=== PATIENT | male | born 1930 | race Caucasian/White ===

== ENCOUNTER → 2016-08-27 | Outpatient (CLI) | payer OTHER ==
[~2016-08-27] MED LIST: CHOLCAP5 PO; DOCU-94 PO; ENZA1CAP PO; FRS/40 PO; METO25TA3 PO; POLY335019 PO
--- NOTE | 2016-08-27 08:11 | DIAGNOSTIC IMAGING REPORT ---
CHEST CT WITHOUT CONTRAST CT DOSE: 2556.59 mGy.cm HISTORY: Prostate carcinoma prostate carcinoma TECHNIQUE: Multiaxial CT images of the chest were performed without contrast. COMPARISON: 09/11/2015 FINDINGS: The lungs are clear. The mediastinal vascular structures are within normal limits. No mediastinal or hilar lymphadenopathy. No pleural effusion or pneumothorax. Limited views of the upper abdomen demonstrate a normal liver and spleen. IMPRESSION: No acute process. Electronically signed by: Wes Cadena M.D. 08/27/2016 8:09 AM Dictated Date/Time: 08/27/2016 8:02 AM
--- NOTE | 2016-08-27 10:43 | DIAGNOSTIC IMAGING REPORT ---
ABDOMEN AND PELVIS CT WITH ORAL CONTRAST CT DOSE: HISTORY: Prostate cancer. Follow-up. X TECHNIQUE: Multiaxial CT images of the abdomen and pelvis were performed following the use of oral contrast. COMPARISON STUDY: Abdomen and pelvis CT 09/12/2015. 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 No new metastatic lesions identified. Bilateral gynecomastia. Trace pericardial effusion, unchanged. There is a 2.5 cm diverticulum at the second portion of the duodenum. Subcentimeter right adrenal gland nodules are unchanged. Slight increase in size/number of the left adrenal gland nodules. No retroperitoneal lymphadenopathy. 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 Mild bladder wall thickening is again noted. This is likely chronic. No bowel wall thickening or obstruction. Normal appendix. The unenhanced liver, spleen, and pancreas are unremarkable. No renal stones or hydronephrosis. Left cortical renal scarring. Exophytic 1.6 cm hypodense lesion within the lower pole the left kidney. This contains small areas of peripheral calcification. This is incompletely characterize on this noncontrast study but may represent a cyst. IMPRESSION: 1. No significant change in the osteoblastic metastatic disease. 2. Increase in size/number of the left adrenal gland nodules. 3. Additional findings as described above. Electronically signed by: Enrrique Soto M.D. 08/27/2016 10:42 AM Dictated Date/Time: 08/27/2016 10:31 AM
--- NOTE | 2016-08-27 11:03 | DIAGNOSTIC IMAGING REPORT ---
BONE SCAN WHOLE BODY CLINICAL HISTORY: Prostate carcinoma COMPARISON STUDY: 05/11/2014 FINDINGS: The patient was injected with 25.5 mCi of technetium 99m MDP. Delayed whole body images were acquired. There are foci of increased activity within the shoulders knees and feet, and a distribution most suggestive of degenerative/arthritic change. There are foci of increased activity within the dorsal spine and upper lumbar spine, suspicious for metastatic disease. There is also a focus of increased activity within the left lateral iliac bone, suspicious for a metastatic deposit. There is a focus of increased activity within the left first rib suspicious for a metastatic deposit. Each of these lesions demonstrates decreased uptake when compared the prior study. No new lesions are visualized. The findings are suggestive of improving metastatic disease IMPRESSION: Interval decrease in the degree of uptake within the multiple skeletal lesions. The findings are suggestive of improving metastatic disease Electronically signed by: Ervin Barth M.D. 08/27/2016 11:01 AM Dictated Date/Time: 08/27/2016 10:59 AM
== END | disposition home or self-care (01) ==
LOC: C.CTS 07:00
PROVIDERS: ATTEND Internal Medicine Hematology
DX: C61 Malignant neoplasm of prostate (principal); C78.00 Secondary malignant neoplasm of unspecified lung; C79.51 Secondary malignant neoplasm of bone

== ENCOUNTER → 2017-05-13 | Outpatient (CLI) | payer OTHER ==
[~2017-05-13] MED LIST changes: -DOCU-94 PO
--- NOTE | 2017-05-13 13:56 | DIAGNOSTIC IMAGING REPORT ---
(CHEST) THORAX WITHOUT CT DOSE: 2567.73 mGy.cm CLINICAL HISTORY: 86 years-old Male with LUNG CA,PROSTATE CA. Follow-up study in a patient with lung and prostate cancer. History of multifocal skeletal metastasis. TECHNIQUE: Multiaxial CT images of the chest were performed without contrast. A dose lowering technique was utilized adhering to the principles of ALARA. COMPARISON: CT abdomen and pelvis of same day, chest CT 08/27/2016, bone scan 08/27/2016. FINDINGS: Thyroid is homogeneous. Mildly prominent lymph nodes of the mediastinum are seen occluding a 7 mm precarinal lymph node which is unchanged from comparison with a fatty hilum. Trace pericardial effusion. Coronary arterial disease. Moderate atherosclerosis of the aorta without aneurysm. No pneumothorax or pleural effusion. Calcified granuloma the right upper lobe. There are a few solid noncalcified nodules of the right upper lobe measuring up to 3 mm which appear unchanged from comparison study. 4 mm nodularity involving the minor fissure on image 149 series 4 is also unchanged. Mild tree-in-bud nodularity involving the lateral segment right middle lobe on image 161 series 4 is unchanged and suggests bronchiolitis. Probable small bilateral periventricular lymph nodes which are seen along the fissures bilaterally are also unchanged. These measure up to approximately 3 mm. Minimal subsegmental atelectasis or scarring of the lateral basal left lower lobe. Central airways are patent. Prior cholecystectomy. Oral contrast is noted within the mid and distal portions of the esophagus suggesting reflux. Extensive bilateral gynecomastia appears symmetric. Advanced degenerative changes of the shoulders. Multilevel endplate spurring throughout the spine. No new skeletal blastic lesions identified. IMPRESSION: 1. No acute intrathoracic abnormality identified. 2. No pathologic adenopathy 3. Noncalcified solid pulmonary nodules measuring up to 3 mm within the right upper lobe are unchanged from comparison. 4. Oral contrast extends into the mid and distal portions of the esophagus suggesting reflux. Electronically signed by: Javed Guidry M.D. 05/13/2017 1:54 PM Dictated Date/Time: 05/13/2017 1:47 PM
--- NOTE | 2017-05-13 14:08 | DIAGNOSTIC IMAGING REPORT ---
ABD/PELVIS ORAL CONT ONLY CLINICAL HISTORY: 86 years-old Male presenting with LUNG CA,PROSTATE CA. TECHNIQUE: Multidetector CT of the abdomen and pelvis was performed after the administration of oral contrast only. IV contrast: None. A dose lowering technique was used consistent with the principles of ALARA (as low as reasonably achievable). COMPARISON: 08/27/2016. CT DOSE (mGy.cm): The estimated cumulative dose is 2567.[address] chest. FINDINGS: Credit Compliance Officer topogram: Unremarkable. Lung bases: Gynecomastia. Minimal nodular opacities in the lateral portion of the right middle lobe. These are unchanged from prior. Coronary artery and aortic valve calcification. Normal heart size. Trace pericardial effusion. No pleural effusion. 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 Normal liver density. Biliary: No gross biliary ductal dilatation allowing for noncontrast technique. Gallbladder surgically absent. Pancreas: Severe parenchymal atrophy. Spleen: Normal noncontrast appearance. Splenule noted. Adrenal glands: Bilateral adrenal gland nodules, left greater than right. The left adrenal gland continues to increase in overall size. Interval development of an exophytic nodule along the inferior aspect of the medial limb (series 7 image 146), which now measures 1.8 cm, previously 0.8 cm. Kidneys and ureters: Focal cortical thinning in the left kidney may suggest scarring. No nephrolithiasis. No hydronephrosis. Normal ureters. Bladder: Incompletely evaluated secondary to underdistention. Pelvic organs: Postsurgical changes of prostatectomy suspected. Bowel: Mild stool burden throughout normal caliber colon. Limited diverticulosis of the sigmoid colon. The appendix is normal. No bowel obstruction. Oral contrast noted in the distal esophagus consistent with gastroesophageal reflux. A duodenal diverticulum containing feces is noted. No surrounding inflammatory change. Peritoneal cavity: No free fluid or intraperitoneal gas. Lymph nodes: No gross lymphadenopathy allowing for noncontrast technique. 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 Aneurysmal dilatation measures 3 x 2 cm (series 7 image 337). Previously this aneurysm measured 3 x 2 cm when remeasured at a comparable level. Atherosclerosis. Mild irregularity of the abdominal aorta without focal aneurysmal dilatation. Abdominal wall: Normal. Musculoskeletal: Multifocal sclerotic lesions consistent with known blastic disease. This is most pronounced in the spine and sacrum. Additional sites of disease suspected in the ribs. IMPRESSION: 1. Overall similar appearance of the multifocal osteoblastic metastatic disease. 2. Continued interval increase in size of bilateral adrenal nodules concerning for metastatic disease. 3. No lymphadenopathy or evidence of new sites of disease. 4. Right internal iliac aneurysm. 5. Gynecomastia. Electronically signed by: Ramiro Worthy M.D. 05/13/2017 2:06 PM Dictated Date/Time: 05/13/2017 1:57 PM
--- NOTE | 2017-05-13 14:44 | DIAGNOSTIC IMAGING REPORT ---
NUCLEAR MEDICINE WHOLE-BODY BONE SCAN CLINICAL HISTORY: LUNG CA,PROSTATE CA COMPARISON STUDY: 08/27/2016 FINDINGS: Patient was injected with 26.2 mCi of technetium 99m MDP. Three-hour delayed whole body images were acquired. Foci of increased activity within the medial joint compartments of the knees, and both feet are likely degenerative/arthritic. There is a focus of increased activity within the right shoulder, likely arthritic. There is interval increase in a focus of intense increased activity at the level of the left first rib. There are persistent foci of increased activity within the mid thoracic spine and T12 level. There is a stable subtle focus of increased activity involving the left anterior iliac bone. IMPRESSION: 1. Stable foci of abnormal increased activity within the mid thoracic spine, T12 level, and left anterior iliac bone 2. Interval increase in the abnormal activity at the level of the left first rib. Electronically signed by: Ervin Barth M.D. 05/13/2017 2:43 PM Dictated Date/Time: 05/13/2017 2:36 PM
== END | disposition home or self-care (01) ==
LOC: C.NUCL 10:49
PROVIDERS: ATTEND Internal Medicine Hematology
DX: C61 Malignant neoplasm of prostate (principal); C78.00 Secondary malignant neoplasm of unspecified lung; C79.51 Secondary malignant neoplasm of bone

== ENCOUNTER 2018-07-27 16:41 | Inpatient (IN) ==
--- NOTE | 2018-07-27 17:09 | Emergency Department Note ---
Entered by Pancho Rodrigez acting as a scribe for Albert Briones DO History of Present Illness General Chief complaint: Confusion Stated complaint: CONFUSSION, PASSING OUT Source: patient and family () History of Present Illness Onset (ago): hour(s) (about 6.5) Location: mouth (speech) Pain Consistency: + other (currently improved) Quality: + other (stroke-like symptoms) Associated symptoms: + other (speech difficulties, temporary unresponsiveness, dragging one leg while walking); no chest pain and no shortness of breath The patient is an 87 year old male who presents to the Emergency Room with stroke-like symptoms beginning at 10:30 this morning, about 6.5 hours ago. The reports that the patient started having difficulties speaking at that time and was unable to produce the correct words, stating that he was not making sense. She notes that these symptoms worsened, and although he was walking without difficulty at first, he started to shuffle and drag his right leg. She states that he started to fall down, but she supported him as he fell so he did not injure himself. She reports that the patient was then unresponsive and staring blankly for a period of about 40 seconds. She states that he currently appears greatly improved, although he still appears a little more confused than his baseline. She notes that she gave the patient one adult aspirin at 13:30. The patient denies chest pain, shortness of breath, history of stroke, history of atrial fibrillation, or use of blood thinners. The notes that he regularly takes metoprolol. The patient reports a fall last week. Home Medications Home Medications Medication Instructions Recorded Confirmed Type Dandelion Root 250 mg PO 2XWK 07/27/18 07/27/18 History cholecalciferol (vitamin D3) 5,000 unit PO DAILY 07/27/18 07/27/18 History [Vitamin D3] enzalutamide [Xtandi] 160 mg PO DAILY 07/27/18 07/27/18 History furosemide [Lasix] 40 mg PO UD 07/27/18 07/27/18 History furosemide [Lasix] 60 mg PO UD 07/27/18 07/27/18 History magnesium oxide 400 mg PO DAILY 07/27/18 07/27/18 History metoprolol succinate 25 mg PO DAILY 07/27/18 07/27/18 History polyethylene glycol 3350 [Miralax] 17 g PO DAILY PRN 07/27/18 07/27/18 History potassium chloride 10 meq PO DAILY 07/27/18 07/27/18 History spironolactone 12.5 mg PO DAILY 07/27/18 07/27/18 History tramadol 50 mg PO Q8 PRN 07/27/18 07/27/18 History Allergies Allergy/AdvReac Type Severity Reaction Status Date / Time No Known Allergies Allergy Unknown Verified 07/27/18 18:27 Past Med/Surg History Medical History Chronic left ventricular systolic heart failure (Chronic) LVEF 35-40% per echo 09/11/15 CKD (chronic kidney disease), stage III (Chronic) Pulmonary nodules (Chronic) metastatic prostate Ca Bone metastasis (Chronic) Prostate CA (Chronic ~2000) Mets to bone and lung. "Adenocarcinoma the prostate Biopsy stage T2c Trev grade 4+4 and 4+ 05/29/2000 Status post TURP October 2007 Trev score 4+4 in 60% of the specimen Status post orchiectomy 2008 due to bone metastasis Status post radiation therapy to the sacrum 05/14/2011 received 3900 cGy Status post completion of radiation therapy to the thoracic/lumbar spine completed 06/17/2014 received 3750 cGy Ongoing treatment with Xtandi" SSS (sick sinus syndrome) (Chronic) History of nephrolithiasis (Chronic) Surgical History Status post cardiac pacemaker procedure (Chronic) Status post cholecystectomy (Chronic) Status post hernia repair (Chronic) Status post orchiectomy (Chronic) Family History Brother Prostate CA Uncle Prostate CA Brother Diabetes mellitus Mother Coronary artery disease Other Family history non-contributory Social History Communication Ability: Impaired Beliefs That Will Affect Care: None Current Living Situation: Spouse current occupational status: retired current occupation: retired [employer] Other Information That Helps Us Care for You: No Feels Safe at Home: Yes Safety Concerns: Feels Safe At This Time Smoking Status: Former smoker Hx Alcohol Use: No Hx Substance Use: No Review of Systems See HPI for pertinent positives & negatives. and A total of 10 systems reviewed and were otherwise negative Physical Exam Vital Signs Vital Signs - 24 hr 07/27/18 19:02 07/27/18 19:51 07/27/18 20:26 Temperature 37.1 C Temperature Source Oral Pulse Rate - Lying Pulse Rate - Sitting Pulse Rate - Standing Pulse Rate [Apical] 75 67 76 Respiratory Rate 20 20 20 Respiratory Effort / Characteristics Non-Labored Non-Labored Spontaneous Respiratory Depth Normal Normal Respiratory Pattern Regular Blood Pressure - Lying Blood Pressure - Sitting Blood Pressure- Standing Blood Pressure [Right Arm] 145/86 H 118/73 138/84 Blood Pressure Mean [Right Arm] 105 88 102 Blood Pressure Position [Right Arm] Lying Pulse Oximetry 99 97 96 Oxygen Delivery Method Room Air Room Air Room Air 07/27/18 20:42 07/27/18 23:09 07/28/18 03:17 Temperature 36.5 C 36.7 C 36.9 C Temperature Source Oral Oral Oral Pulse Rate - Lying Pulse Rate - Sitting Pulse Rate - Standing Pulse Rate [Apical] 78 63 66 Respiratory Rate 18 20 20 Respiratory Effort / Characteristics Non-Labored Spontaneous SOB on Exertion Respiratory Depth Normal Respiratory Pattern Regular Blood Pressure - Lying Blood Pressure - Sitting Blood Pressure- Standing Blood Pressure [Right Arm] 135/78 124/50 L 117/64 Blood Pressure Mean [Right Arm] 97 74 81 Blood Pressure Position [Right Arm] Lying Lying Lying Pulse Oximetry 97 94 95 Oxygen Delivery Method Room Air Room Air Room Air 07/28/18 06:30 07/28/18 08:00 07/28/18 11:34 Temperature 37.1 C 37.2 C Temperature Source Oral Oral Pulse Rate - Lying 62 Pulse Rate - Sitting 69 Pulse Rate - Standing 83 Pulse Rate [Apical] 61 65 Respiratory Rate 18 18 Respiratory Effort / Characteristics Respiratory Depth Respiratory Pattern Blood Pressure - Lying 115/60 Blood Pressure - Sitting 118/66 Blood Pressure- Standing 128/57 L Blood Pressure [Right Arm] 112/60 126/72 Blood Pressure Mean [Right Arm] 77 90 Blood Pressure Position [Right Arm] Lying Lying Pulse Oximetry 94 94 Oxygen Delivery Method Room Air Room Air 07/28/18 15:11 Temperature 36.6 C Temperature Source Oral Pulse Rate - Lying Pulse Rate - Sitting Pulse Rate - Standing Pulse Rate [Apical] 65 Respiratory Rate 18 Respiratory Effort / Characteristics Respiratory Depth Respiratory Pattern Blood Pressure - Lying Blood Pressure - Sitting Blood Pressure- Standing Blood Pressure [Right Arm] 132/77 Blood Pressure Mean [Right Arm] 95 Blood Pressure Position [Right Arm] Lying Pulse Oximetry 90 Oxygen Delivery Method Room Air GENERAL: Patient is awake alert. He is somewhat anxious appearing but appears to be comfortable. EYES: The conjunctivae are clear. The pupils are round and reactive. EARS, NOSE, MOUTH AND THROAT: The nose is without any evidence of any deformity. Mucous membranes are moist tongue is midline NECK: The neck is nontender and supple. There were no bruits noted to auscultation. RESPIRATORY: Normal respiratory effort is noted there is no evidence of wheezing rhonchi or rales CARDIOVASCULAR: Regular rate and rhythm noted there no murmurs rubs or gallops normal S1 normal S2 GASTROINTESTINAL: The abdomen is soft. Bowel sounds are present in all quadrants. Abdomen is nontender MUSCULOSKELETAL/EXTREMITIES: There is no evidence of gross deformity full range of motion is noted in the hips and shoulders SKIN: There is no obvious evidence of any rash. Pedal edema was noted bilaterally. NEUROLOGIC: Patient is alert and oriented to person place and time. Speech was pressured but understandable. Strength was symmetric in both lower extremity's. There was no facial droop noted. Course 1654: Past medical records reviewed. The patient was evaluated in room B1, and a complete history and physical examination were performed. 1723: The patients head CT was negative. 1827: I discussed the patients case with Dr. Cabrera [facility]. 1847: I consulted Yany Dow PA-C: [place] Hospitalist with Dr. Sutton. The patient will be evaluated for hospitalization. Consultations Consultation #1: I discussed the patients case with Dr. Cabrera [facility]. Time: 18:27 Consultation #2: I consulted Yany Dow PA-C: [facility] Sutton. The patient will be evaluated for hospitalization. Time: 18:47 Administered Medications Aspirin (Ecotrin Ectab) 81 mg PO [facility] Stop: 08/27/18 08:59 Last Admin: 07/28/18 08:20 Dose: 81 mg Documented by: [id number] Atorvastatin [facility] Stop: 08/27/18 08:59 Last Admin: 07/28/18 08:20 Dose: 40 mg Documented by: [id number] Clopidogrel Bisulfate (Plavix) 75 mg PO QAM [facility] Stop: 08/27/18 08:59 Last Admin: 07/28/18 08:20 Dose: 75 mg Documented by: [id number] Furosemide (Lasix) 40 mg PO BID17 [facility] Stop: 08/27/18 16:59 Last Admin: 07/28/18 17:10 Dose: Not Given Documented by: [id number] Sodium Chloride (Nss 1000ml) 750 mls @ 60 mls/hr IV .[id number] [facility] Stop: 07/29/18 00:14 Last Admin: 07/28/18 12:45 Dose: 60 mls/hr Documented by: [id number] Heparin Sodium/Dextrose (Heparin Sodium/Dextrose) 25,000 units in 500 mls @ 32 mls/hr IV .[id number] [facility]; Protocol Stop: 08/27/18 13:59 Last Admin: 07/28/18 14:09 Dose: 1,600 units/hr, 32 mls/hr Documented by: [id number] Cosigned by: [id number] Ioversol (Optiray 320 125ml) 119 ml IV ONCE PRN PRN Reason: Interaction Checking Stop: 07/31/18 17:18 Last Admin: 07/27/18 17:19 Dose: 119 ml Documented by: [id number] Magnesium Oxide (Mag-Ox) 400 mg PO DAILY [facility] Stop: 08/27/18 08:59 Last Admin: 07/28/18 08:20 Dose: 400 mg Documented by: [id number] Metoprolol Succinate (Toprol Xl) 25 mg PO DAILY [facility] Stop: 08/27/18 08:59 Last Admin: 07/28/18 08:20 Dose: 25 mg Documented by: [id number] Polyethylene Glycol (Miralax Powder Packet) 17 gm PO DAILY PRN PRN Reason: Constipation Stop: 08/26/18 20:41 Last Admin: 07/28/18 08:22 Dose: 17 gm Documented by: [id number] Potassium Chloride (Klor-Con M10) 10 meq PO DAILY [facility] Stop: 08/27/18 08:59 Last Admin: 07/28/18 08:21 Dose: 10 meq Documented by: [id number] Spironolactone (Aldactone) 12.5 mg PO DAILY [facility] Stop: 08/27/18 08:59 Last Admin: 07/28/18 08:21 Dose: 12.5 mg Documented by: [id number] Discontinued Medications Clopidogrel Bisulfate (Plavix) 300 mg PO NOW STA Stop: 07/27/18 18:34 Last Admin: 07/27/18 18:40 Dose: 300 mg Documented by: [id number] Enoxaparin Sodium (Lovenox) 40 mg SQ QAM [facility] Stop: 08/27/18 08:59 Last Admin: 07/28/18 08:27 Dose: 40 mg Documented by: [id number] Furosemide (Lasix) 60 mg PO SuWeFr@0900,2100 [facility] Stop: 08/26/18 20:59 Last Admin: 07/27/18 21:57 Dose: 60 mg Documented by: [id number] Furosemide (Lasix) 40 mg PO MoTuThSa@09,15 [facility] Stop: 08/27/18 08:59 Last Admin: 07/28/18 08:21 Dose: 40 mg Documented by: [id number] Heparin Sodium/Dextrose (Heparin Sodium/Dextrose) Confirm Administered Dose 25,000 units IV .STK-MED ONE Stop: 07/28/18 13:39 Last Admin: 07/28/18 13:54 Dose: Not Given Documented by: [id number] Sodium Chloride (Nss 1000ml) 500 mls @ 999 mls/hr IV .Q31M ONE Stop: 07/27/18 19:03 Last Infusion: 07/27/18 19:14 Dose: 0 mls/hr Documented by: [id number] Admin: 07/27/18 18:40 Dose: 999 mls/hr Documented by: [id number] Sodium Chloride (Nss 250ml) 250 mls @ 999 mls/hr IV .Q16M ONE Stop: 07/28/18 11:42 Last Infusion: 07/28/18 12:47 Dose: 0 mls/hr Documented by: [id number] Admin: 07/28/18 12:24 Dose: 999 mls/hr Documented by: [id number] Medical Decision Making Differential Diagnosis Differential Diagnosis includes but is not limited to ischemic stroke, hemorrhagic stroke, Davidson's palsy, mass, neoplasm, migraine headache, seizure, subarachnoid hemorrhage, TIA, and transient global amnesia. Medical Records Attestation: I reviewed the patient's medical records. Home Medications Current Medication List: was personally reviewed by me Laboratory Data Attestation: I reviewed the patient's lab results. Result diagrams: 07/28/18 06:11 07/28/18 06:11 Lab Results 07/27/18 07/27/18 07/27/18 Range/Units 17:08 17:08 17:08 WBC 7.24 (4.8-10.8) K/uL RBC 4.10 L (4.7-6.1) M/uL Hgb 12.7 L (14.0-18.0) g/dL POC Hgb (14.0-18.0) g/dl Hct 37.9 L (42-52) % POC Hct (42-52) % MCV 92.4 (80-100) fL MCH 31.0 (25-34) pg MCHC 33.5 (32-36) g/dL RDW Std Deviation 49.3 H (36.4-46.3) fL RDW Coeff of Carlos A 14.6 H (11.5-14.5) % Plt Count 185 (130-400) K/uL MPV 9.5 (7.4-10.4) fL Immature Gran % (Auto) 0.1 % Neut % (Auto) 71.3 % Lymph % (Auto) 16.9 % [place] % (Auto) 10.4 % Eos % (Auto) 1.0 % Baso % (Auto) 0.3 % Immature Gran # (Auto) 0.01 (0.00-0.02) K/uL Neut # (Auto) 5.17 (1.4-6.5) K/uL Lymph # (Auto) 1.22 (1.2-3.4) K/uL [place] # (Auto) 0.75 H (0.11-0.59) K/uL Eos # (Auto) 0.07 (0-0.5) K/uL Baso # (Auto) 0.02 (0-0.2) K/uL PT Cancelled INR Cancelled APTT Cancelled PTT Ratio Cancelled POC Sodium (135-144) mEq/L Sodium 136 (136-145) mmol/L POC Potassium (3.3-5.0) mEq/L Potassium 4.1 (3.5-5.1) mmol/L POC Chloride (101-112) mEq/L Chloride 100 (98-107) mmol/L Carbon Dioxide 25 (21-32) mmol/L POC Total CO2 (24-31) mEq/l Anion Gap 11.0 (3-11) POC Anion Gap (16-25) mmol/L POC BUN (7-18) mg/dl BUN 18 (7-18) mg/dl Creatinine 1.36 (0.6-1.4) mg/dl POC Creatinine (0.6-1.3) mg/dl Est Cr Clr Drug Dosing 48.9 ml/min Est GFR ( Amer) 53.8 Est GFR (Non-Af Amer) 46.5 BUN/Creatinine Ratio 13.1 (10-20) Glucose 119 H (70-99) mg/dl POC Glucose (70-99) POC Glucose (other) (70-99) mg/dl Estimat Average Glucose mg/dl Hemoglobin A1c (4.5-5.6) % Calcium 9.4 (8.5-10.1) mg/dl POC Ioniz Calcium Gypsy (1.12-1.32) mmol/l Magnesium 2.7 H (1.8-2.4) mg/dl Total Bilirubin 0.8 (0.2-1) mg/dl AST 23 (15-37) U/L ALT 14 (12-78) U/L Alkaline Phosphatase 88 (45-117) U/L Troponin I < 0.015 (0-0.045) ng/ml Total Protein 7.5 (6.4-8.2) gm/dl Albumin 3.4 (3.4-5.0) gm/dl Globulin 4.1 H (2.5-4.0) gm/dl Albumin/Globulin Ratio 0.8 L (0.9-2) Triglycerides (0-150) mg/dl Cholesterol (0-200) mg/dl LDL Cholesterol, Calc mg/dl VLDL Cholesterol, Calc mg/dl HDL Cholesterol mg/dl Cholesterol/HDL Ratio Blood Type Antibody Screen 07/27/18 07/27/18 07/27/18 Range/Units 17:08 17:11 17:25 WBC (4.8-10.8) K/uL RBC (4.7-6.1) M/uL Hgb (14.0-18.0) g/dL POC Hgb 12.6 L (14.0-18.0) g/dl Hct (42-52) % POC Hct 37 L (42-52) % MCV (80-100) fL MCH (25-34) pg MCHC (32-36) g/dL RDW Std Deviation (36.4-46.3) fL RDW Coeff of Carlos A (11.5-14.5) % Plt Count (130-400) K/uL MPV (7.4-10.4) fL Immature Gran % (Auto) % Neut % (Auto) % Lymph % (Auto) % [place] % (Auto) % Eos % (Auto) % Baso % (Auto) % Immature Gran # (Auto) (0.00-0.02) K/uL Neut # (Auto) (1.4-6.5) K/uL Lymph # (Auto) (1.2-3.4) K/uL [place] # (Auto) (0.11-0.59) K/uL Eos # (Auto) (0-0.5) K/uL Baso # (Auto) (0-0.2) K/uL PT INR APTT PTT Ratio POC Sodium 137 (135-144) mEq/L Sodium (136-145) mmol/L POC Potassium 4.1 (3.3-5.0) mEq/L Potassium (3.5-5.1) mmol/L POC Chloride 99 L (101-112) mEq/L Chloride (98-107) mmol/L Carbon Dioxide (21-32) mmol/L POC Total CO2 27 (24-31) mEq/l Anion Gap (3-11) POC Anion Gap 16.0 (16-25) mmol/L POC BUN 25 H (7-18) mg/dl BUN (7-18) mg/dl Creatinine (0.6-1.4) mg/dl POC Creatinine 1.3 (0.6-1.3) mg/dl Est Cr Clr Drug Dosing ml/min Est GFR ( Amer) Est GFR (Non-Af Amer) BUN/Creatinine Ratio (10-20) Glucose (70-99) mg/dl POC Glucose 118 H (70-99) POC Glucose (other) 120 H (70-99) mg/dl Estimat Average Glucose mg/dl Hemoglobin A1c (4.5-5.6) % Calcium (8.5-10.1) mg/dl POC Ioniz Calcium Gypsy 1.21 (1.12-1.32) mmol/l Magnesium (1.8-2.4) mg/dl Total Bilirubin (0.2-1) mg/dl AST (15-37) U/L ALT (12-78) U/L Alkaline Phosphatase (45-117) U/L Troponin I (0-0.045) ng/ml Total Protein (6.4-8.2) gm/dl Albumin (3.4-5.0) gm/dl Globulin (2.5-4.0) gm/dl Albumin/Globulin Ratio (0.9-2) Triglycerides (0-150) mg/dl Cholesterol (0-200) mg/dl LDL Cholesterol, Calc mg/dl VLDL Cholesterol, Calc mg/dl HDL Cholesterol mg/dl Cholesterol/HDL Ratio Blood Type A Positive Antibody Screen NEGATIVE 07/27/18 07/28/18 07/28/18 Range/Units 18:02 06:11 06:11 WBC 5.17 (4.8-10.8) K/uL RBC 3.96 L (4.7-6.1) M/uL Hgb 12.2 L (14.0-18.0) g/dL POC Hgb (14.0-18.0) g/dl Hct 36.5 L (42-52) % POC Hct (42-52) % MCV 92.2 (80-100) fL MCH 30.8 (25-34) pg MCHC 33.4 (32-36) g/dL RDW Std Deviation 49.2 H (36.4-46.3) fL RDW Coeff of Carlos A 14.5 (11.5-14.5) % Plt Count 157 (130-400) K/uL MPV 9.0 (7.4-10.4) fL Immature Gran % (Auto) 0.2 % Neut % (Auto) 61.5 % Lymph % (Auto) 23.0 % [place] % (Auto) 13.9 % Eos % (Auto) 1.2 % Baso % (Auto) 0.2 % Immature Gran # (Auto) 0.01 (0.00-0.02) K/uL Neut # (Auto) 3.18 (1.4-6.5) K/uL Lymph # (Auto) 1.19 L (1.2-3.4) K/uL [place] # (Auto) 0.72 H (0.11-0.59) K/uL Eos # (Auto) 0.06 (0-0.5) K/uL Baso # (Auto) 0.01 (0-0.2) K/uL PT 10.3 INR 1.0 APTT 24.0 PTT Ratio 0.9 POC Sodium (135-144) mEq/L Sodium 137 (136-145) mmol/L POC Potassium (3.3-5.0) mEq/L Potassium 3.6 (3.5-5.1) mmol/L POC Chloride (101-112) mEq/L Chloride 103 (98-107) mmol/L Carbon Dioxide 25 (21-32) mmol/L POC Total CO2 (24-31) mEq/l Anion Gap 10.0 (3-11) POC Anion Gap (16-25) mmol/L POC BUN (7-18) mg/dl BUN 14 (7-18) mg/dl Creatinine 1.19 (0.6-1.4) mg/dl POC Creatinine (0.6-1.3) mg/dl Est Cr Clr Drug Dosing 54.8 ml/min Est GFR ( Amer) 63.3 Est GFR (Non-Af Amer) 54.6 BUN/Creatinine Ratio 11.9 (10-20) Glucose 122 H (70-99) mg/dl POC Glucose (70-99) POC Glucose (other) (70-99) mg/dl Estimat Average Glucose mg/dl Hemoglobin A1c (4.5-5.6) % Calcium 8.9 (8.5-10.1) mg/dl POC Ioniz Calcium Gypsy (1.12-1.32) mmol/l Magnesium (1.8-2.4) mg/dl Total Bilirubin (0.2-1) mg/dl AST (15-37) U/L ALT (12-78) U/L Alkaline Phosphatase (45-117) U/L Troponin I (0-0.045) ng/ml Total Protein (6.4-8.2) gm/dl Albumin (3.4-5.0) gm/dl Globulin (2.5-4.0) gm/dl Albumin/Globulin Ratio (0.9-2) Triglycerides 182 H (0-150) mg/dl Cholesterol 225 H (0-200) mg/dl LDL Cholesterol, Calc 144 mg/dl VLDL Cholesterol, Calc 36 mg/dl HDL Cholesterol 45 mg/dl Cholesterol/HDL Ratio 5 Blood Type Antibody Screen 07/28/18 Range/Units 06:11 WBC (4.8-10.8) K/uL RBC (4.7-6.1) M/uL Hgb (14.0-18.0) g/dL POC Hgb (14.0-18.0) g/dl Hct (42-52) % POC Hct (42-52) % MCV (80-100) fL MCH (25-34) pg MCHC (32-36) g/dL RDW Std Deviation (36.4-46.3) fL RDW Coeff of Carlos A (11.5-14.5) % Plt Count (130-400) K/uL MPV (7.4-10.4) fL Immature Gran % (Auto) % Neut % (Auto) % Lymph % (Auto) % [place] % (Auto) % Eos % (Auto) % Baso % (Auto) % Immature Gran # (Auto) (0.00-0.02) K/uL Neut # (Auto) (1.4-6.5) K/uL Lymph # (Auto) (1.2-3.4) K/uL [place] # (Auto) (0.11-0.59) K/uL Eos # (Auto) (0-0.5) K/uL Baso # (Auto) (0-0.2) K/uL PT INR APTT PTT Ratio POC Sodium (135-144) mEq/L Sodium (136-145) mmol/L POC Potassium (3.3-5.0) mEq/L Potassium (3.5-5.1) mmol/L POC Chloride (101-112) mEq/L Chloride (98-107) mmol/L Carbon Dioxide (21-32) mmol/L POC Total CO2 (24-31) mEq/l Anion Gap (3-11) POC Anion Gap (16-25) mmol/L POC BUN (7-18) mg/dl BUN (7-18) mg/dl Creatinine (0.6-1.4) mg/dl POC Creatinine (0.6-1.3) mg/dl Est Cr Clr Drug Dosing ml/min Est GFR ( Amer) Est GFR (Non-Af Amer) BUN/Creatinine Ratio (10-20) Glucose (70-99) mg/dl POC Glucose (70-99) POC Glucose (other) (70-99) mg/dl Estimat Average Glucose 154 mg/dl Hemoglobin A1c 7.0 H (4.5-5.6) % Calcium (8.5-10.1) mg/dl POC Ioniz Calcium Gypsy (1.12-1.32) mmol/l Magnesium (1.8-2.4) mg/dl Total Bilirubin (0.2-1) mg/dl AST (15-37) U/L ALT (12-78) U/L Alkaline Phosphatase (45-117) U/L Troponin I (0-0.045) ng/ml Total Protein (6.4-8.2) gm/dl Albumin (3.4-5.0) gm/dl Globulin (2.5-4.0) gm/dl Albumin/Globulin Ratio (0.9-2) Triglycerides (0-150) mg/dl Cholesterol (0-200) mg/dl LDL Cholesterol, Calc mg/dl VLDL Cholesterol, Calc mg/dl HDL Cholesterol mg/dl Cholesterol/HDL Ratio Blood Type Antibody Screen Imaging Data Radiologist's Impression: Radiology results as stated below per my review and the radiologist's interpretation: XR chest 1V portable HISTORY: 87 years-old Male weakness acute weakness COMPARISON: Chest radiograph 10/24/2017 TECHNIQUE: Portable AP view of the chest FINDINGS: Cardiac silhouette is mildly enlarged, unchanged. Calcification the thoracic aorta. Stable left subclavian dual lead pacer. Mild chronic blunting about the left costophrenic angle. There is no pneumothorax, pleural effusion, focal airspace consolidation or overt pulmonary edema. Degenerative changes of the shoulders and spine. IMPRESSION: No acute process. The above report was generated using voice recognition software. It may contain grammatical, syntax or spelling errors. Electronically signed by: Javed Guidry M.D. 07/27/2018 6:[address] head/brain wo con CLINICAL HISTORY: 87 years-old Male with Stroke evaluation . Acute strokelike symptoms TECHNIQUE: Multiple axial CT images of the head were obtained without contrast. A dose lowering technique was utilized adhering to the principles of ALARA. COMPARISON: CTA head and neck of same day. FINDINGS: No acute intracranial hemorrhage, midline shift, intracranial mass, hydrocephalus, territorial ischemia or abnormal extra-axial collection. 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 Cerebral vascular calcifications are noted. The calvarium is intact. The paranasal sinuses, mastoid air cells, and middle ear cavities are clear. IMPRESSION: No acute intracranial abnormality. The above report was generated using voice recognition software. It may contain grammatical, syntax or spelling errors. Electronically signed by: Javed Guidry M.D. 07/27/2018 5:[address] angio neck with con, CT angio head w con CLINICAL HISTORY: 87 years-old Male with weak. Acute weakness COMPARISON STUDY: CT head of same day TECHNIQUE: Following the IV administration of 119 ml of Optiray 320, CT angiogram of the head and neck was performed from the aortic arch to the skull base. Images are reviewed in the axial, sagittal, and coronal planes. 3-D MIPS images are created and assessed. IV contrast was administered without complication. All measurements were calculated based on NASCET criteria. A dose lowering technique was utilized adhering to the principles of ALARA. CT DOSE: 1309.97 mGy.cm FINDINGS: Extensive mixed plaque formation about the thoracic aortic arch. Patency about the imaged bilateral subclavian arteries. Bilateral common carotid arteries are patent with moderate atheromatous plaque formation. Extensive mixed plaque formation about the bilateral carotid bulbs. This results in less than 50% luminal narrowing bilaterally. Tortuosity about the distal cervical segments of the bilateral internal carotid arteries without high-grade stenosis. Focal area of short segment dissection is noted about the petrous segment right ICA (image 331 series 4). This results in less than 50% luminal narrowing mild calcified plaque formation about the bilateral cavernous, clinoid and supraclinoid seg ments. Focal high-grade stenosis about the proximal portion of the left M1 segment on image 414 series 4 with high-grade stenosis at the origin of the left A1 segment on this same image. Additionally, there is high-grade luminal narrowing of the distal left M1 segment just proximal to the trifurcation. There is mild luminal narrowing noted about the midportion of the right M1 segment. The right A1 segment is widely patent. Vertebral arteries are codominant. Mild tortuosity about the vertebral arteries. Calcified plaque at the origin of the right vertebral artery results in less than 50% luminal narrowing. Multifocal mild luminal narrowing about the V4 segments of the bilateral vertebral arteries, likely secondary to underlying atheromatous plaque. Basilar artery is patent. Bilateral posterior cerebral arteries are widely patent. Cerebral venous sinuses appear patent. No pneumothorax. Calcified granuloma of the right upper lobe. There are a few indeterminate scattered solid nodules noted about the lung apices measuring up to 4 mm. Soft tissues appear unremarkable. No acute abnormality of the imaged intracranial structures. Multilevel degenerative changes of the spine. IMPRESSION: 1. 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 There is less than 50% luminal narrowing about the bilateral proximal internal carotid arteries. 2. Focal high-grade stenosis at the origin of the left M1 and A1 segments with additional focal area of high-grade stenosis about the distal left M1 segment just proximal to the trifurcation, likely secondary to underlying atheromatous plaque. 3. 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 4. Additional findings as above. The above report was generated using voice recognition software. It may contain grammatical, syntax or spelling errors. Electronically signed by: Javed Guidry M.D. 07/27/2018 5:[address] angio neck with con, CT angio head w con CLINICAL HISTORY: 87 years-old Male with weak. Acute weakness COMPARISON STUDY: CT head of same day TECHNIQUE: Following the IV administration of 119 ml of Optiray 320, CT angiogram of the head and neck was performed from the aortic arch to the skull base. Images are reviewed in the axial, sagittal, and coronal planes. 3-D MIPS images are created and assessed. IV contrast was administered without complication. All measurements were calculated based on NASCET criteria. A dose lowering technique was utilized adhering to the principles of ALARA. CT DOSE: 1309.97 mGy.cm FINDINGS: Extensive mixed plaque formation about the thoracic aortic arch. Patency about the imaged bilateral subclavian arteries. Bilateral common carotid arteries are patent with moderate atheromatous plaque formation. Extensive mixed plaque formation about the bilateral carotid bulbs. This results in less than 50% lum inal narrowing bilaterally. Tortuosity about the distal cervical segments of the bilateral internal carotid arteries without high-grade stenosis. Focal area of short segment dissection is noted about the petrous segment right ICA (image 331 series 4). This results in less than 50% luminal narrowing mild calcified plaque formation about the bilateral cavernous, clinoid and supraclinoid segments. Focal high-grade stenosis about the proximal portion of the left M1 segment on image 414 series 4 with high-grade stenosis at the origin of the left A1 segment on this same image. Additionally, there is high-grade luminal narrowing of the distal left M1 segment just proximal to the trifurcation. There is mild luminal narrowing noted about the midportion of the right M1 segment. The right A1 segment is widely patent. Vertebral arteries are codominant. Mild tortuosity about the vertebral arteries. Calcified plaque at the origin of the right vertebral artery results in less than 50% luminal narrowing. Multifocal mild luminal narrowing about the V4 segments of the bilateral vertebral arteries, likely secondary to underlying atheromatous plaque. Basilar artery is patent. Bilateral posterior cerebral arteries are widely patent. Cerebral venous sinuses appear patent. No pneumothorax. Calcified granuloma of the right upper lobe. There are a few indeterminate scattered solid nodules noted about the lung apices measuring up to 4 mm. Soft tissues appear unremarkable. No acute abnormality of the imaged intracranial structures. Multilevel degenerative changes of the spine. IMPRESSION: 1. 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 There is less than 50% luminal narrowing about the bilateral proximal internal carotid arteries. 2. Focal high-grade stenosis at the origin of the left M1 and A1 segments with additional focal area of high-grade stenosis about the distal left M1 segment just proximal to the trifurcation, likely secondary to underlying atheromatous plaque. 3. 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 4. Additional findings as above. The above report was generated using voice recognition software. It may contain grammatical, syntax or spelling errors. Electronically signed by: Javed Guidry M.D. 07/27/2018 5:58 PM ECG Data Attestation: I personally reviewed and interpreted this ECG as follows: Indication: other (stroke-like symptoms) Rate (beats per minute): 66 Rhythm: other (dual chamber pacemaker) Findings: + other (no washoe beats) and + LBBB Comparison ECG Date: from (10/23/17) Change: the following changes noted (pacer is new) Blood Pressure Blood Pressure Findings: Elevated blood pressure Blood Pressure Disposition: further management by hospitalist LYSSA Ruiz The patient is an 87-year-old male who presented to the emergency department for an evaluation of neurologic symptoms. The patient started having symptoms at approximately 1030 on the morning of presentation. The patient was having episodes of aphasia but also started having problems with unilateral leg weakness. The patient presents to the emergency department this time with very mild symptoms. The patient did have one episode of aphasia while he was in the emergency department. He was made a stroke alert upon arrival. I discussed the patient's laboratory and radiographic studies with him. I discussed his case with the neuro endovascular specialist at [facility]. At this time they do not feel that his condition would be amenable to endovascular treatment however if the patient's symptoms change in any way they did recommend that we transfer the patient for further evaluation. I discussed his case with the on-call [facility] hospitalist group. The patient was treated with Plavix in the emergency department. He did receive aspirin from his significant other prior to arrival. The patient was reevaluated multiple times. Impression & Plan TIA (transient ischemic attack), Cerebrovascular disease Discharge Plan Visit Data *Final* Discharge Date/Time: 07/27/18 20:02 Chief Complaint: Confusion Stated Complaint: CONFUSSION, PASSING OUT ED Provider: Albert Briones Discharge Problem: TIA (transient ischemic attack), Cerebrovascular disease Patient Disposition: Admitted As Inpatient Discharge Instructions Interventions: ED Discharge Assessment Last Done: 07/27/18 20:02 The scribe's documentation has been prepared under my direction and personally reviewed by me in its entirety. I confirm that the note above accurately reflects all work, treatment, procedures, and medical decision making performed by me.
[2018-07-27 17:17] LABS: Basophils # (auto) 0.02 K/uL (0-0.2); Basophils % (auto) 0.3 %; Eosinophils # (auto) 0.07 K/uL (0-0.5); Hematocrit (blood only) 37.9 % (42-52); Hemoglobin 12.7 g/dL (14.0-18.0); Immature Granulocytes # (auto) 0.01 K/uL (0.00-0.02); Immature Granulocytes % (auto) 0.1 %; Lymphocytes # (auto) 1.22 K/uL (1.2-3.4); Lymphocytes % (auto) 16.9 %; Mean Corpuscular Hgb Conc 33.5 g/dL (32-36); Mean Corpuscular Volume 92.4 fL (80-100); Mean Platelet Volume 9.5 fL (7.4-10.4); Monocytes # (auto) 0.75 K/uL (0.11-0.59); Monocytes % (auto) 10.4 %; Neutrophils # (auto) 5.17 K/uL (1.4-6.5); Neutrophils % (auto) 71.3 %; Platelet Count 185 K/uL (130-400); RDW Coefficient of Variation 14.6 % (11.5-14.5); RDW Standard Deviation 49.3 fL (36.4-46.3); White Blood Count 7.24 K/uL (4.8-10.8)
[2018-07-27] MEDS ORDERED: OPTIRAY 320 125ml IV PRN (17:19)
--- NOTE | 2018-07-27 17:24 | CT Scan Report ---
CT head/brain wo con CLINICAL HISTORY: 87 years-old Male with Stroke evaluation . Acute strokelike symptoms TECHNIQUE: Multiple axial CT images of the head were obtained without contrast. A dose lowering tech nique was utilized adhering to the principles of ALARA. COMPARISON: CTA head and neck of same day. FINDINGS: No acute intracranial hemorrhage, midline shift, intracranial mass, hydrocephalus, territorial ischem ia or abnormal extra-axial collection. 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 Cerebral vascular calcifications are noted. The calvarium is intact. The paranasal sinuses, mastoid air cells, and middle ear cavities are clear . IMPRESSION: No acute intracranial abnormality. The above report was generated using voice recognition software. It may contain grammatical, syntax o r spelling errors. Electronically signed by: Javed Guidry M.D. 07/27/2018 5:22 PM
[2018-07-27 17:25] LABS: iSTAT Creatinine 1.3 mg/dl (0.6-1.3); iSTAT Hemoglobin 12.6 g/dl (14.0-18.0); iSTAT Ionized Calcium 1.21 mmol/l (1.12-1.32); iSTAT Potassium 4.1 mEq/L (3.3-5.0)
[2018-07-27 17:34] LABS: Alanine Aminotransferase 14 U/L (12-78); Albumin Level 3.4 gm/dl (3.4-5.0); Aspartate Aminotransferase 23 U/L (15-37); BUN Creatinine Ratio 13.1 (10-20); Blood Urea Nitrogen 18 mg/dl (7-18); Calcium 9.4 mg/dl (8.5-10.1); Carbon Dioxide 25 mmol/L (21-32); Chloride 100 mmol/L (98-107); Creatinine Clr Calc Pharmacy 48.9 ml/min; Est GFR (African American) 53.8; Est GFR (Non-African American) 46.5; Glucose 119 mg/dl (70-99); Magnesium 2.7 mg/dl (1.8-2.4); Potassium 4.1 mmol/L (3.5-5.1); Sodium 136 mmol/L (136-145)
[2018-07-27 17:39] LABS: Albumin Globulin Ratio 0.8 (0.9-2); Alkaline Phosphatase 88 U/L (45-117); Bilirubin,Total 0.8 mg/dl (0.2-1); Globulin 4.1 gm/dl (2.5-4.0); Total Protein 7.5 gm/dl (6.4-8.2); Troponin I < 0.015 ng/ml (0-0.045)
--- NOTE | 2018-07-27 18:00 | CT Scan Report ---
CT angio neck with con, CT angio head w con CLINICAL HISTORY: 87 years-old Male with weak. Acute weakness COMPARISON STUDY: CT head of same day TECHNIQUE: Following the IV administration of 119 ml of Optiray 320, CT angiogram of the head and nec k was performed from the aortic arch to the skull base. Images are reviewed in the axial, sagittal, a nd coronal planes. 3-D MIPS images are created and assessed. IV contrast was administered without com plication. All measurements were calculated based on NASCET criteria. A dose lowering technique was utilized adhering to the principles of ALARA. CT DOSE: 1309.97 mGy.cm FINDINGS: Extensive mixed plaque formation about the thoracic aortic arch. Patency about the imaged bilateral s ubclavian arteries. Bilateral common carotid arteries are patent with moderate atheromatous plaque fo rmation. Extensive mixed plaque formation about the bilateral carotid bulbs. This results in less masood n 50% luminal narrowing bilaterally. Tortuosity about the distal cervical segments of the bilateral i nternal carotid arteries without high-grade stenosis. Focal area of short segment dissection is noted about the petrous segment right ICA (image 331 series 4). This results in less than 50% luminal narr owing mild calcified plaque formation about the bilateral cavernous, clinoid and supraclinoid segment s. Focal high-grade stenosis about the proximal portion of the left M1 segment on image 414 series 4 wit h high-grade stenosis at the origin of the left A1 segment on this same image. Additionally, there is high-grade luminal narrowing of the distal left M1 segment just proximal to the trifurcation. There is mild luminal narrowing noted about the midportion of the right M1 segment. The right A1 segment is widely patent. Vertebral arteries are codominant. Mild tortuosity about the vertebral arteries. Calcified plaque at the origin of the right vertebral artery results in less than 50% luminal narrowing. Multifocal mild luminal narrowing about the V4 segments of the bilateral vertebral arteries, likely secondary to unde rlying atheromatous plaque. Basilar artery is patent. Bilateral posterior cerebral arteries are widel y patent. Cerebral venous sinuses appear patent. No pneumothorax. Calcified granuloma of the right upper lobe. There are a few indeterminate scattered solid nodules noted about the lung apices measuring up to 4 mm. Soft tissues appear unremarkable. No acute abnormality of the imaged intracranial structures. Multilevel degenerative changes of the spin e. IMPRESSION: 1. 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 There is less than 50% luminal narrowing about the bilateral proximal internal carotid arteries. 2. Focal high-grade stenosis at the origin of the left M1 and A1 segments with additional focal area of high-grade stenosis about the distal left M1 segment just proximal to the trifurcation, likely sec ondary to underlying atheromatous plaque. 3. 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 4. Additional findings as above. The above report was generated using voice recognition software. It may contain grammatical, syntax o r spelling errors. Electronically signed by: Javed Guidry M.D. 07/27/2018 5:58 PM
--- NOTE | 2018-07-27 18:08 | XRay Report ---
XR chest 1V portable HISTORY: 87 years-old Male weakness acute weakness COMPARISON: Chest radiograph 10/24/2017 TECHNIQUE: Portable AP view of the chest FINDINGS: Cardiac silhouette is mildly enlarged, unchanged. Calcification the thoracic aorta. Stable left subcl ruby dual lead pacer. Mild chronic blunting about the left costophrenic angle. There is no pneumotho rax, pleural effusion, focal airspace consolidation or overt pulmonary edema. Degenerative changes of the shoulders and spine. IMPRESSION: No acute process. The above report was generated using voice recognition software. It may contain grammatical, syntax o r spelling errors. Electronically signed by: Javed Guidry M.D. 07/27/2018 6:07 PM
[2018-07-27 18:22] LABS: Partial Thromboplastin Ratio 0.9; Prothrombin Time 10.3 Seconds (9.0-12.0)
[2018-07-27] MEDS ORDERED: CLOPIDOGREL BISULFATE 300 MG TAB PO STA (18:33)
[2018-07-27] MEDS ORDERED: SODIUM CHLORIDE 0.9% 1000ML 500 ML IV ONE (18:33)
--- NOTE | 2018-07-27 20:40 | History & Physical Report ---
Date of Service July 27, 2018 Assessment & Plan (1) Stroke-like symptoms: Reported dysarthria, expressive aphasia, RLE weakness this morning. Exact duration of symptoms uncertain, but apparently less than 1 hour. Presented to ED about 5 hours after onset of symptoms. Possible brief episode of recurrent aphasia in ED. Stroke alert called in ED. No acute findings on CT of head. 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 Not candidate for thrombolytic therapy because of improvement of symptoms and time of presentation. It was felt that interventional cerebrovascular procedures are not indicated at this time because of improved neuro status. Antiplatelet therapy with aspirin and clopidogrel recommended. Patients neuro symptoms could be thrombotic or embolic in nature. Alternatively, consider transient hypoperfusion secondary to arrhythmias or relatively low blood pressures in association with intracranial atherosclerosis of M1 and A1 segments noted on CTA. Age-indeterminate focal dissection of right ICA does not seem to be contributing to current symptoms. Plan: neuro checks antiplatelet therapy with aspirin and clopidogrel check lipid profile high-intensity statin monitor for arrhythmias check orthostatic vital signs. 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 He also had an unexplained fall about a week ago. Monitor for arrhythmias. Pacemaker interrogation to review arrhythmia history and rule out pacemaker malfunction. Check orthostatic vital signs. (3) Chronic left ventricular systolic heart failure: Chronic left ventricular systolic heart failure with LVEF 35-40% per echo 2016. Compensated. No SAMARA or ARB due to CKD. Continue metoprolol succinate and diuretics. (4) Status post cardiac pacemaker procedure: Pacemaker interrogation requested. (5) Pulmonary nodules: Small pulmonary nodules noted on CTA neck. 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 No need for further evaluation at this time. (6) CKD (chronic kidney disease), stage III: Serum creatinine 1.36. Follow. 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 Ongoing management per Dr. Cameron. (8) DVT prophylaxis: Increased risk for VTE. SQ enoxaparin. Ambulate. (9) Discharge planning issues: Anticipated discharge to home. Family Medicine follow-up with Dr. Dong. Cardiology follow-up with Wes Jeffries PA-C. Medical Oncology follow-up with Dr. Wilmer Cameron. History of Present Illness Chief Complaint: weakness, fall, difficulty speaking Primary Care Provider: Ger Dong 87 YO male followed by Dr. Dong for Family Medicine, Wes Jeffries PA-C for Cardiology, and Dr. Wilmer Cameron for Medical Oncology. History of cardiomyopathy, sick sinus syndrome with pacemaker, metastatic prostate Ca, and other problems. Lives at home with his and is able to perform ADL's independently, although functional status has been declining and he spends most of his time on the first floor of their home. He was in his usual state of health until this morning around 11:30. His noted abnormal speech while he was sitting in a chair; she describes lizbeth th slurred speech and difficulty with word finding. He then stood up to walk across the room and his noted that he was dragging his right foot. He was unable to continue ambulating because of weakness and lowered himself gently to the floor without injury. feels that he may have transiently lost consciousness, but patient disagrees. No seizure activity. No headache. No additional focal neuro symptoms today. No associated chest pain, palpitations, SOB . Duration of symptoms uncertain, but less than 1 hour. Family assisted him back to his chair. He was given a dose of aspirin at home. Arrived in ED about 5 hours after onset of symptoms. Symptoms resolved by the time he came to ED, but had a brief episode of possible expressive aphasia in the ED. Upon further discussion, patient reports that he fell during the night about 1 week ago; cause of fall not apparent. He also describes a transient episode of diplopia a few days ago which occurred when he was looking over his shoulder. Allergies Allergy/AdvReac Type Severity Reaction Status Date / Time No Known Allergies Allergy Unknown Verified 07/27/18 18:27 Home Medications Home Medications Medication Instructions Recorded Confirmed Type Dandelion Root 250 mg PO 2XWK 07/27/18 07/27/18 History cholecalciferol (vitamin D3) 5,000 unit PO DAILY 07/27/18 07/27/18 History [Vitamin D3] enzalutamide [Xtandi] 160 mg PO DAILY 07/27/18 07/27/18 History furosemide [Lasix] 40 mg PO UD 07/27/18 07/27/18 History furosemide [Lasix] 60 mg PO UD 07/27/18 07/27/18 History magnesium oxide 400 mg PO DAILY 07/27/18 07/27/18 History metoprolol succinate 25 mg PO DAILY 07/27/18 07/27/18 History polyethylene glycol 3350 [Miralax] 17 g PO DAILY PRN 07/27/18 07/27/18 History potassium chloride 10 meq PO DAILY 07/27/18 07/27/18 History spironolactone 12.5 mg PO DAILY 07/27/18 07/27/18 History tramadol 50 mg PO Q8 PRN 07/27/18 07/27/18 History Past Med/Surg History Medical History Chronic left ventricular systolic heart failure (Chronic) LVEF 35-40% per echo 09/11/15 CKD (chronic kidney disease), stage III (Chronic) Pulmonary nodules (Chronic) metastatic prostate Ca Bone metastasis (Chronic) Prostate CA (Chronic ~2000) Mets to bone and lung. "Adenocarcinoma the prostate Biopsy stage T2c Solway grade 4+4 and 4+ 05/29/2000 Status post TURP October 2007 Solway score 4+4 in 60% of the specimen Status post orchiectomy 2008 due to bone metastasis Status post radiation therapy to the sacrum 05/14/2011 received 3900 cGy Status post completion of radiation therapy to the thoracic/lumbar spine completed 06/17/2014 received 3750 cGy Ongoing treatment with Xtandi" SSS (sick sinus syndrome) (Chronic) History of nephrolithiasis (Chronic) Surgical History Status post cardiac pacemaker procedure (Chronic) Status post cholecystectomy (Chronic) Status post hernia repair (Chronic) Status post orchiectomy (Chronic) Social History Preferred Language: Albanian Communication Ability: Effective 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 Beliefs That Will Affect Care: None Current Living Situation: Spouse current occupational status: retired current occupation: retired [employer] Other Information That Helps Us Care for You: No Feels Safe at Home: Yes Safety Concerns: Feels Safe At This Time Smoking Status: Former smoker Hx Alcohol Use: No Hx Substance Use: No Review of Systems Constitutional: no fever and no weight loss Eyes: as per Subjective / HPI; no worsening vision Ear, Nose, Mouth, Throat: + hearing loss; no nasal congestion, no sinus pain/pressure and no sore throat Respiratory: + dyspnea on exertion (chronic); no cough Cardiovascular: + edema (chronic dependent); no chest pain and no palpitations Gastrointestinal: no nausea, no vomiting, no constipation, no diarrhea/loose stools, no blood in stools and no melena Genitourinary (Male): + nocturia (once a night); no dysuria and no hematuria Musculoskeletal: + joint pain (knees) Integumentary: no rash and no new lesions Neurologic: as per Subjective / HPI Endocrine: no polydipsia and no polyuria Hematologic / Lymphatic: no easy bleeding, no easy bruising and no lymphadenopathy Physical Exam Vital Signs (Past 24 Hours): Last Vital Signs Temp 36.6 C 07/27/18 16:46 Pulse 67 07/27/18 19:51 Resp 20 07/27/18 19:51 BP 118/73 07/27/18 19:51 Pulse Ox 97 07/27/18 19:51 Constitutional: WD/WN, vitals as above no acute distress Eyes: PERRL, conjunctivae normal, anicteric sclerae ENMT: external ear and nose normal, oropharynx normal Ears: + hearing impairment Mouth: + dentures Neck: trachea midline, no thyromegaly Respiratory: normal respiratory effort, lungs clear to auscultation Cardiovascular: Rate/Rhythm: regular rate and regular rhythm (with occasional ectopy) Heart Sounds: no gallop, no murmur and no cardiac rub Vessels: + JVD, posterior tibial pulses present (diminished) and dorsalis pedis pulses present (diminished); no carotid bruit Extremities: normal capillary refill, + pedal edema and + edema (2+ pretibial bilat); no calf tenderness capillary refill toes 2 sec bilat Gastrointestinal (Abdomen): normal bowel sounds, soft, nontender, no hepatosplenomegaly (exam limited due to body habitus) Musculoskeletal: Head/Neck/Chest: neck supple Extremities: strength 5/5 throughout; no cyanosis and no clubbing Skin: no rashes, warm and dry Neurologic: PERRL, EOMI no facial palsy no dysarthria or aphasia able to repeat "no ifs, ands, or buts" with minimal difficulty motor upper and lower extremities 5/5 bilat patellar DTR's 1/2 bilat plantar reflexes downgoing bilat no significant difficulty with finger to nose or heel to daniels bilat Psychiatric: Orientation: alert and oriented x 3 Affect: euthymic affect Lymphatic: no cervical lymphadenopathy Results & Data Laboratory Results Laboratory Results - last 24 hr 07/27/18 07/27/18 07/27/18 17:08 17:08 17:08 WBC 7.24 RBC 4.10 L Hgb 12.7 L POC Hgb Hct 37.9 L POC Hct MCV 92.4 MCH 31.0 MCHC 33.5 RDW Std Deviation 49.3 H RDW Coeff of Carlos A 14.6 H Plt Count 185 MPV 9.5 Immature Gran % (Auto) 0.1 Neut % (Auto) 71.3 Lymph % (Auto) 16.9 Yates % (Auto) 10.4 Eos % (Auto) 1.0 Baso % (Auto) 0.3 Immature Gran # (Auto) 0.01 Neut # (Auto) 5.17 Lymph # (Auto) 1.22 Yates # (Auto) 0.75 H Eos # (Auto) 0.07 Baso # (Auto) 0.02 PT Cancelled INR Cancelled APTT Cancelled PTT Ratio Cancelled POC Sodium Sodium 136 POC Potassium Potassium 4.1 POC Chloride Chloride 100 Carbon Dioxide 25 POC Total CO2 Anion Gap 11.0 POC Anion Gap POC BUN BUN 18 Creatinine 1.36 POC Creatinine Est Cr Clr Drug Dosing 48.9 Est GFR ( Amer) 53.8 Est GFR (Non-Af Amer) 46.5 BUN/Creatinine Ratio 13.1 Glucose 119 H POC Glucose POC Glucose (other) Calcium 9.4 POC Ioniz Calcium Gypsy Magnesium 2.7 H Total Bilirubin 0.8 AST 23 ALT 14 Alkaline Phosphatase 88 Troponin I < 0.015 Total Protein 7.5 Albumin 3.4 Globulin 4.1 H Albumin/Globulin Ratio 0.8 L Blood Type Antibody Screen 07/27/18 07/27/18 07/27/18 17:08 17:11 17:25 WBC RBC Hgb POC Hgb 12.6 L Hct POC Hct 37 L MCV MCH MCHC RDW Std Deviation RDW Coeff of Carlos A Plt Count MPV Immature Gran % (Auto) Neut % (Auto) Lymph % (Auto) Yates % (Auto) Eos % (Auto) Baso % (Auto) Immature Gran # (Auto) Neut # (Auto) Lymph # (Auto) Yates # (Auto) Eos # (Auto) Baso # (Auto) PT INR APTT PTT Ratio POC Sodium 137 Sodium POC Potassium 4.1 Potassium POC Chloride 99 L Chloride Carbon Dioxide POC Total CO2 27 Anion Gap POC Anion Gap 16.0 POC BUN 25 H BUN Creatinine POC Creatinine 1.3 Est Cr Clr Drug Dosing Est GFR ( Amer) Est GFR (Non-Af Amer) BUN/Creatinine Ratio Glucose POC Glucose 118 H POC Glucose (other) 120 H Calcium POC Ioniz Calcium Gypsy 1.21 Magnesium Total Bilirubin AST ALT Alkaline Phosphatase Troponin I Total Protein Albumin Globulin Albumin/Globulin Ratio Blood Type A Positive Antibody Screen NEGATIVE 07/27/18 18:02 WBC RBC Hgb POC Hgb Hct POC Hct MCV MCH MCHC RDW Std Deviation RDW Coeff of Carlos A Plt Count MPV Immature Gran % (Auto) Neut % (Auto) Lymph % (Auto) Yates % (Auto) Eos % (Auto) Baso % (Auto) Immature Gran # (Auto) Neut # (Auto) Lymph # (Auto) Yates # (Auto) Eos # (Auto) Baso # (Auto) PT 10.3 INR 1.0 APTT 24.0 PTT Ratio 0.9 POC Sodium Sodium POC Potassium Potassium POC Chloride Chloride Carbon Dioxide POC Total CO2 Anion Gap POC Anion Gap POC BUN BUN Creatinine POC Creatinine Est Cr Clr Drug Dosing Est GFR ( Amer) Est GFR (Non-Af Amer) BUN/Creatinine Ratio Glucose POC Glucose POC Glucose (other) Calcium POC Ioniz Calcium Gypsy Magnesium Total Bilirubin AST ALT Alkaline Phosphatase Troponin I Total Protein Albumin Globulin Albumin/Globulin Ratio Blood Type Antibody Screen Diagnostic Findings PORTABLE CHEST X-RAY FINDINGS: Cardiac silhouette is mildly enlarged, unchanged. Calcification the thoracic aorta. Stable left subclavian dual lead pacer. Mild chronic blunting about the left costophrenic angle. There is no pneumothorax, pleural effusion, focal airspace consolidation or overt pulmonary edema. Degenerative changes of the shoulders and spine. IMPRESSION: No acute process. The above report was generated using voice recognition software. It may contain grammatical, syntax or spelling errors. Electronically signed by: Javed Guidry M.D. 07/27/2018 6:[address] HEAD WITHOUT CONTRAST FINDINGS: No acute intracranial hemorrhage, midline shift, intracranial mass, hydrocephalus, territorial ischemia or abnormal extra-axial collection. Age- related involutional changes with ex vacuo ventriculomegaly. Cerebral vascular calcifications are noted. The calvarium is intact. The paranasal sinuses, mastoid air cells, and middle ear cavities are clear. IMPRESSION: No acute intracranial abnormality. The above report was generated using voice recognition software. It may contain grammatical, syntax or spelling errors. Electronically signed by: Javed Guidry M.D. 07/27/2018 5:22 PM CTA CERVICAL AND INTRACRANIAL VESSELS IMPRESSION: 1. 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 There is less than 50% luminal narrowing about the bilateral proximal internal carotid arteries. 2. Focal high-grade stenosis at the origin of the left M1 and A1 segments with additional focal area of high-grade stenosis about the distal left M1 segment just proximal to the trifurcation, likely secondary to underlying atheromatous plaque. 3. 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 4. Additional findings as above. The above report was generated using voice recognition software. It may contain grammatical, syntax or spelling errors. Electronically signed by: Javed Guidry M.D. 07/27/2018 5:58 PM ECG Additional Comments: EKG performed at 1657 reviewed and demonstrated dual chamber pacing at 66 / min. Code Status & VTE Plan Code Status Discussed with patient and his . Patient indicates that he has a living will, but does not remember what it says. Upon further discussion, they indicate that aggressive measures, including CPR, should be undertaken as necessary if there is a reasonable chance of a meaningful recovery. However, he would not want extraordinary measures initiated or continued if prognosis is poor. VTE Prophylaxis Plan VTE Prophylaxis will be ordered: Yes
[2018-07-27] MEDS ORDERED: TRAMADOL HCL 50 MG TABLET PO PRN (20:42)
[2018-07-27] MEDS ORDERED: POLYETHYLENE (MIRALAX) 17 GM PACK PO PRN (20:42)
[2018-07-27] MEDS ORDERED: PHARMACIST DISCHARGE MED REC CONSULT PRN (20:42)
[2018-07-27] MEDS ORDERED: ACETAMINOPHEN 325 MG TAB PO PRN (20:42)
[2018-07-27] MEDS ORDERED: FUROSEMIDE 40 MG TAB PO SCH (21:00)
[2018-07-28 06:21] LABS: Basophils # (auto) 0.01 K/uL (0-0.2); Basophils % (auto) 0.2 %; Eosinophils # (auto) 0.06 K/uL (0-0.5); Eosinophils % (auto) 1.2 %; Hematocrit (blood only) 36.5 % (42-52); Hemoglobin 12.2 g/dL (14.0-18.0); Immature Granulocytes # (auto) 0.01 K/uL (0.00-0.02); Immature Granulocytes % (auto) 0.2 %; Lymphocytes # (auto) 1.19 K/uL (1.2-3.4); Mean Corpuscular Hgb Conc 33.4 g/dL (32-36); Mean Corpuscular Volume 92.2 fL (80-100); Monocytes # (auto) 0.72 K/uL (0.11-0.59); Monocytes % (auto) 13.9 %; Neutrophils # (auto) 3.18 K/uL (1.4-6.5); Neutrophils % (auto) 61.5 %; Platelet Count 157 K/uL (130-400); RDW Coefficient of Variation 14.5 % (11.5-14.5); RDW Standard Deviation 49.2 fL (36.4-46.3); Red Blood Count 3.96 M/uL (4.7-6.1); White Blood Count 5.17 K/uL (4.8-10.8)
[2018-07-28 06:53] LABS: BUN Creatinine Ratio 11.9 (10-20); Calcium 8.9 mg/dl (8.5-10.1); Creatinine Clr Calc Pharmacy 54.8 ml/min; Est GFR (African American) 63.3; Est GFR (Non-African American) 54.6; Potassium 3.6 mmol/L (3.5-5.1)
[2018-07-28 07:07] LABS: Estimated Average Glucose 154 mg/dl
[2018-07-28] MEDS: ASPIRIN 81 MG ECTAB PO SCH (08:20)
[2018-07-28] MEDS: MAGNESIUM OXIDE 400 MG TAB PO SCH (08:20)
[2018-07-28] MEDS: CLOPIDOGREL BISULFATE 75 MG TAB PO SCH (08:20)
[2018-07-28] MEDS: ATORVASTATIN 40 MG TAB PO SCH (08:20)
[2018-07-28] MEDS: POTASSIUM CHLORIDE 10 MEQ TABCR PO SCH (08:21)
[2018-07-28] MEDS: SPIRONOLACTONE 25 MG TAB PO SCH (08:21)
[2018-07-28] MEDS ORDERED: FUROSEMIDE 40 MG TAB PO SCH ×2 (09:00)
[2018-07-28] MEDS ORDERED: ENOXAPARIN INJ 40 MG/0.4 ML SYR SQ SCH (09:00)
[2018-07-28] MEDS ORDERED: METOPROLOL SUCC 25MG EXT REL TAB PO SCH (09:00)
--- NOTE | 2018-07-28 09:57 | Hospitalist Progress Note ---
Date of Service July 28, 2018 Assessment & Plan (1) Stroke-like symptoms: POSSIBLE TIA HIGH GRADE STENOSIS MCA AND REMIGIO R/O ORTHOSTASIS Per Dr. Sutton' notes: Reported dysarthria, expressive aphasia, RLE weakness this morning. Exact duration of symptoms uncertain, but apparently less than 1 hour. Presented to ED about 5 hours after onset of symptoms. Possible brief episode of recurrent aphasia in ED. Stroke alert called in ED. No acute findings on CT of head. 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 Check orthostatic vital signs. on Lasix 40mg and 60mg, Metoprolol succinate 25g po daily--> leg edema significantly improved as per , may need reduction in doses follows with MERON Jeffries will consult Cardiology (3) Chronic left ventricular systolic heart failure: Chronic left ventricular systolic heart failure with LVEF 35-40% per echo 2016. No SAMARA or ARB due to CKD. euvolemic Cardiology consulted for recommendations regarding Lasix and Metoprolol dosing (4) Status post cardiac pacemaker procedure: Pacemaker interrogation requested. (5) Pulmonary nodules: Small pulmonary nodules noted on CTA neck. 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 No need for further evaluation at this time. (6) CKD (chronic kidney disease), stage III: Serum creatinine 1.36. Follow. 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 Ongoing management per Dr. Cameron. (8) DVT prophylaxis: Increased risk for VTE. SQ enoxaparin. Ambulate. (9) Discharge planning issues: Anticipated discharge to home. Family Medicine follow-up with Dr. Dong. Cardiology follow-up with Wes Jeffries PA-C. Medical Oncology follow-up with Dr. Wilmer Camreon. Subjective ff up for possible TIA called by RN as patient was observed to have dysarthria, expressive aphasia, right upper extremity drift lasting about 30 sec after breakfast on exam, patient alert, oriented x 2, in good spirits neuro exam performed, all symptoms resolved denies active dizziness, headache, nausea, chest pain, dyspnea, palpitations did not get adequate sleep overnight as per patient and his , he has had multiple falls at least 1-2/week for the past couple of months passing out usually after standing up and walking a few steps denies other symptoms Physical Exam Vital Signs (Past 24 Hours): Last Vital Signs Temp 37.1 C 07/28/18 06:30 Pulse 61 07/28/18 06:30 Resp 18 07/28/18 06:30 BP 112/60 07/28/18 06:30 Pulse Ox 94 07/28/18 06:30 Physical Exam: General- oriented x 2, not in distress, speaks in sentences with no effort or accessory muscle use Eyes- anicteric Neck- no JVD Lungs- clear breath sounds bilaterally, no rales/wheezes Heart- normal rate, regular rhythm; no murmurs Abdomen- normal bowel sounds, nondistended, soft, nontender Extremities-trace pretibial edema, no calf tenderness Neuro- alert, oriented x 2; CN 2-12 grossly intact, motor 5/5 sensation 10% Skin- warm & dry Results & Data Laboratory Results Laboratory Results - last 24 hr 07/27/18 07/27/18 07/27/18 17:08 17:08 17:08 WBC 7.24 RBC 4.10 L Hgb 12.7 L POC Hgb Hct 37.9 L POC Hct MCV 92.4 MCH 31.0 MCHC 33.5 RDW Std Deviation 49.3 H RDW Coeff of Carlos A 14.6 H Plt Count 185 MPV 9.5 Immature Gran % (Auto) 0.1 Neut % (Auto) 71.3 Lymph % (Auto) 16.9 Lassen % (Auto) 10.4 Eos % (Auto) 1.0 Baso % (Auto) 0.3 Immature Gran # (Auto) 0.01 Neut # (Auto) 5.17 Lymph # (Auto) 1.22 Lassen # (Auto) 0.75 H Eos # (Auto) 0.07 Baso # (Auto) 0.02 PT Cancelled INR Cancelled APTT Cancelled PTT Ratio Cancelled POC Sodium Sodium 136 POC Potassium Potassium 4.1 POC Chloride Chloride 100 Carbon Dioxide 25 POC Total CO2 Anion Gap 11.0 POC Anion Gap POC BUN BUN 18 Creatinine 1.36 POC Creatinine Est Cr Clr Drug Dosing 48.9 Est GFR ( Amer) 53.8 Est GFR (Non-Af Amer) 46.5 BUN/Creatinine Ratio 13.1 Glucose 119 H POC Glucose POC Glucose (other) Estimat Average Glucose Hemoglobin A1c Calcium 9.4 POC Ioniz Calcium Gypsy Magnesium 2.7 H Total Bilirubin 0.8 AST 23 ALT 14 Alkaline Phosphatase 88 Troponin I < 0.015 Total Protein 7.5 Albumin 3.4 Globulin 4.1 H Albumin/Globulin Ratio 0.8 L Triglycerides Cholesterol LDL Cholesterol, Calc VLDL Cholesterol, Calc HDL Cholesterol Cholesterol/HDL Ratio Blood Type Antibody Screen 07/27/18 07/27/18 07/27/18 17:08 17:11 17:25 WBC RBC Hgb POC Hgb 12.6 L Hct POC Hct 37 L MCV MCH MCHC RDW Std Deviation RDW Coeff of Carlos A Plt Count MPV Immature Gran % (Auto) Neut % (Auto) Lymph % (Auto) Lassen % (Auto) Eos % (Auto) Baso % (Auto) Immature Gran # (Auto) Neut # (Auto) Lymph # (Auto) Lassen # (Auto) Eos # (Auto) Baso # (Auto) PT INR APTT PTT Ratio POC Sodium 137 Sodium POC Potassium 4.1 Potassium POC Chloride 99 L Chloride Carbon Dioxide POC Total CO2 27 Anion Gap POC Anion Gap 16.0 POC BUN 25 H BUN Creatinine POC Creatinine 1.3 Est Cr Clr Drug Dosing Est GFR ( Amer) Est GFR (Non-Af Amer) BUN/Creatinine Ratio Glucose POC Glucose 118 H POC Glucose (other) 120 H Estimat Average Glucose Hemoglobin A1c Calcium POC Ioniz Calcium Gypsy 1.21 Magnesium Total Bilirubin AST ALT Alkaline Phosphatase Troponin I Total Protein Albumin Globulin Albumin/Globulin Ratio Triglycerides Cholesterol LDL Cholesterol, Calc VLDL Cholesterol, Calc HDL Cholesterol Cholesterol/HDL Ratio Blood Type A Positive Antibody Screen NEGATIVE 07/27/18 07/28/18 07/28/18 18:02 06:11 06:11 WBC 5.17 RBC 3.96 L Hgb 12.2 L POC Hgb Hct 36.5 L POC Hct MCV 92.2 MCH 30.8 MCHC 33.4 RDW Std Deviation 49.2 H RDW Coeff of Carlos A 14.5 Plt Count 157 MPV 9.0 Immature Gran % (Auto) 0.2 Neut % (Auto) 61.5 Lymph % (Auto) 23.0 Lassen % (Auto) 13.9 Eos % (Auto) 1.2 Baso % (Auto) 0.2 Immature Gran # (Auto) 0.01 Neut # (Auto) 3.18 Lymph # (Auto) 1.19 L Lassen # (Auto) 0.72 H Eos # (Auto) 0.06 Baso # (Auto) 0.01 PT 10.3 INR 1.0 APTT 24.0 PTT Ratio 0.9 POC Sodium Sodium 137 POC Potassium Potassium 3.6 POC Chloride Chloride 103 Carbon Dioxide 25 POC Total CO2 Anion Gap 10.0 POC Anion Gap POC BUN BUN 14 Creatinine 1.19 POC Creatinine Est Cr Clr Drug Dosing 54.8 Est GFR ( Amer) 63.3 Est GFR (Non-Af Amer) 54.6 BUN/Creatinine Ratio 11.9 Glucose 122 H POC Glucose POC Glucose (other) Estimat Average Glucose Hemoglobin A1c Calcium 8.9 POC Ioniz Calcium Gypsy Magnesium Total Bilirubin AST ALT Alkaline Phosphatase Troponin I Total Protein Albumin Globulin Albumin/Globulin Ratio Triglycerides 182 H Cholesterol 225 H LDL Cholesterol, Calc 144 VLDL Cholesterol, Calc 36 HDL Cholesterol 45 Cholesterol/HDL Ratio 5 Blood Type Antibody Screen 07/28/18 06:11 WBC RBC Hgb POC Hgb Hct POC Hct MCV MCH MCHC RDW Std Deviation RDW Coeff of Carlos A Plt Count MPV Immature Gran % (Auto) Neut % (Auto) Lymph % (Auto) Lassen % (Auto) Eos % (Auto) Baso % (Auto) Immature Gran # (Auto) Neut # (Auto) Lymph # (Auto) Lassen # (Auto) Eos # (Auto) Baso # (Auto) PT INR APTT PTT Ratio POC Sodium Sodium POC Potassium Potassium POC Chloride Chloride Carbon Dioxide POC Total CO2 Anion Gap POC Anion Gap POC BUN BUN Creatinine POC Creatinine Est Cr Clr Drug Dosing Est GFR ( Amer) Est GFR (Non-Af Amer) BUN/Creatinine Ratio Glucose POC Glucose POC Glucose (other) Estimat Average Glucose 154 Hemoglobin A1c 7.0 H Calcium POC Ioniz Calcium Gypsy Magnesium Total Bilirubin AST ALT Alkaline Phosphatase Troponin I Total Protein Albumin Globulin Albumin/Globulin Ratio Triglycerides Cholesterol LDL Cholesterol, Calc VLDL Cholesterol, Calc HDL Cholesterol Cholesterol/HDL Ratio Blood Type Antibody Screen
[2018-07-28] MEDS ORDERED: SODIUM CHLORIDE 0.9% 250 ML IV ONE (11:27)
[2018-07-28] MEDS ORDERED: SODIUM CHLORIDE 0.9% 1000ML 750 ML IV SCH (11:45)
--- NOTE | 2018-07-28 12:16 | CT Scan Report ---
CT SCAN OF THE BRAIN WITHOUT IV CONTRAST CLINICAL HISTORY: Strokelike symptoms. COMPARISON STUDY: CT of the brain dated 07/27/2018. TECHNIQUE: Unenhanced axial CT scan of the brain is performed from the vertex to the skull base. A do se lowering technique was utilized adhering to the principles of ALARA. CT DOSE: 773.57 mGy.cm FINDINGS: Brain parenchyma: There are age-related involutional changes noting mild subcortical and periventric ular microangiopathic change. There is no hemorrhage, mass effect, or evidence of acute territorial i schemia by CT criteria. Bhatia-white matter differentiation is preserved. No extra-axial fluid collecti on is seen. Ventricles, sulci, cisterns: Prominent secondary to involutional change. Intracranial vasculature: There is atherosclerotic calcification of the cavernous carotid and vertebr al arteries. Calvarium: Unremarkable. Sinuses and mastoids: The visualized paranasal sinuses are clear. The mastoid air cells are well pneu matized. Orbits: The bony orbits are grossly intact. A metallic foreign body is seen adjacent to the right orb it. IMPRESSION: There is no hemorrhage, mass effect, or evidence of acute territorial ischemia by CT ana mariat nico. Electronically signed by: Naseem Agrawal M.D. 07/28/2018 12:15 PM
--- NOTE | 2018-07-28 12:40 | Cardiology Consultation ---
Date of Consultation July 28, 2018 Assessment & Plan (1) Stroke-like symptoms: Patient with recurrent TIA symptoms this a.m. CTA of the head and neck demonstrating vascular disease: Extensive mixed plaque formation of the thoracic aorta and bilateral carotid bulbs. There is less than 50% luminal narrowing about the bilateral proximal internal carotid arteries. Focal high-grade stenosis at the origin of the left M1 and A1 segments with additional focal area of high-grade stenosis about the distal left M1 segment just proximal to the trifurcation, likely secondary to underlying atheromatous plaque. 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 Recommend neurology and neurovascular consultations. Discussed with hospitalist. Pacemaker interrogation reveals underlying sinus rhythm. No episodes of sustained atrial fibrillation. Echocardiogram demonstrates preserved LV systolic function with frequent PVCs. No significant valvular pathology. (2) Cerebrovascular disease: Add high intensity statin therapy. (3) TIA (transient ischemic attack): (4) Status post cardiac pacemaker procedure: History of sick sinus syndrome. RV pacing lead malfunction requiring revision on 10/23/17. Normal pacemaker function Normal function per interrogation performed today. (5) Chronic diastolic heart failure: Mild chronic edema noted. Chronic dyspnea on exertion stable. Will reduce Lasix to 40 mg twice daily. History of catecholaminergic cardiomyopathy. Repeat echocardiogram demonstrates preserved LV systolic function with frequent PVCs and right ventricular pacing. History of Present Illness Reason for Consultation: syncope Requesting Physician: Dr. Schulte Attending Physician: Garcia Schulte MD History of Present Illness 87-year-old patient admitted with strokelike symptoms. describes word finding issues, confusion, transient right lower extremity weakness. Stroke alert was called in the emergency department. Patient did not receive thrombolytics. As symptoms seem to be improving at that time. I was asked to see the patient regarding syncope. describes patient lowered himself to the ground softly. Denies any loss of consciousness. No tongue biting, tonic- clonic movements, or head trauma. states patient was awake however confused during these episodes. At times she did not recognize her. Patient currently confused and a poor historian. Right-sided facial asymmetry noted. Telemetry reveals AV paced rhythm. Pacemaker interrogation reveals no evidence of atrial fibrillation or sustained dysrhythmias. Echocardiogram demonstrates preserved LV systolic function without significant valvular disease. Allergies Allergy/AdvReac Type Severity Reaction Status Date / Time No Known Allergies Allergy Unknown Verified 07/27/18 18:27 Home Medications Home Medications Medication Instructions Recorded Confirmed Type Dandelion Root 250 mg PO 2XWK 07/27/18 07/27/18 History cholecalciferol (vitamin D3) 5,000 unit PO DAILY 07/27/18 07/27/18 History [Vitamin D3] enzalutamide [Xtandi] 160 mg PO DAILY 07/27/18 07/27/18 History furosemide [Lasix] 40 mg PO UD 07/27/18 07/27/18 History furosemide [Lasix] 60 mg PO UD 07/27/18 07/27/18 History magnesium oxide 400 mg PO DAILY 07/27/18 07/27/18 History metoprolol succinate 25 mg PO DAILY 07/27/18 07/27/18 History polyethylene glycol 3350 [Miralax] 17 g PO DAILY PRN 07/27/18 07/27/18 History potassium chloride 10 meq PO DAILY 07/27/18 07/27/18 History spironolactone 12.5 mg PO DAILY 07/27/18 07/27/18 History tramadol 50 mg PO Q8 PRN 07/27/18 07/27/18 History Patient History Medical History Chronic left ventricular systolic heart failure (Chronic) LVEF 35-40% per echo 09/11/15 CKD (chronic kidney disease), stage III (Chronic) Pulmonary nodules (Chronic) metastatic prostate Ca Bone metastasis (Chronic) Prostate CA (Chronic ~2000) Mets to bone and lung. "Adenocarcinoma the prostate Biopsy stage T2c Trev grade 4+4 and 4+ 05/29/2000 Status post TURP October 2007 Trev score 4+4 in 60% of the specimen Status post orchiectomy 2008 due to bone metastasis Status post radiation therapy to the sacrum 05/14/2011 received 3900 cGy Status post completion of radiation therapy to the thoracic/lumbar spine completed 06/17/2014 received 3750 cGy Ongoing treatment with Xtandi" SSS (sick sinus syndrome) (Chronic) History of nephrolithiasis (Chronic) Surgical History Status post cardiac pacemaker procedure (Chronic) Status post cholecystectomy (Chronic) Status post hernia repair (Chronic) Status post orchiectomy (Chronic) Family History Brother Prostate CA Uncle Prostate CA Brother Diabetes mellitus Mother Coronary artery disease Other Family history non-contributory Social History Communication Ability: Impaired Beliefs That Will Affect Care: None Current Living Situation: Spouse current occupational status: retired current occupation: retired [employer] Other Information That Helps Us Care for You: No Feels Safe at Home: Yes Safety Concerns: Feels Safe At This Time Smoking Status: Former smoker Hx Alcohol Use: No Hx Substance Use: No Review of Systems Pertinent positives noted per HPI. also reports dyspnea on exertion. No significant recent weight gain or orthopnea. Chronic edema unchanged. she currently a poor historian and somewhat confused at 10 system review otherwise negative per review of inpatient records and discussion with at bedside. Physical Exam Vital Signs (Past 24 Hours): Last Vital Signs Temp 37.2 C 07/28/18 11:34 Pulse 65 07/28/18 11:34 Resp 18 07/28/18 11:34 BP 126/72 07/28/18 11:34 Pulse Ox 94 07/28/18 11:34 Physical Exam: General: NAD, AAO x3, well nourished. HEENT: Normocephalic. Atraumatic. Conjunctiva pink, no scleral icterus. Neck: No carotid bruits, the carotid upstrokes are brisk. No JVD. No HJR Heart: Regular normal S-1 and S-2 no S-3 or S-4 gallop. No murmurs or rub appreciated. PMI is not displaced. No RV heave. Lungs: Clear bilateral without rales , rhonchi, or wheeze. Abdomen: Normal bowel sounds. Soft. Nontender. No masses or organomegaly. No abdominal bruits. Extremities: No clubbing, or cyanosis. 1+ bilateral pedal and ankle edema. Pulses: radial=2/4, posterior tibial=2/4. Neuro: Right-sided facial droop.+ Confusion. Poor historian. Moves all 4 extremities. No focal weakness appreciated.
[2018-07-28] MEDS ORDERED: Heparin IV Standard *NO* Bolus IV ONE (12:45)
[2018-07-28] MEDS ORDERED: HEPARIN 25000 UNIT/500 ML D5W IV ONE (13:38)
[2018-07-28] MEDS: HEPARIN STANDARD DEXTROSE 25,000 UNITS/500 ML IV SCH (14:09)
--- NOTE | 2018-07-28 15:03 | Neurology Consultation ---
Date of Consultation July 28, 2018 Assessment & Plan (1) Stroke-like symptoms: 1. CT head no acute findings 2. blood pressure should be slightly elevated to allow good blood flow to brain 140/80 3. heparin gtt to optimize blood thinning and avoid further events 4. after symptoms have subsided will stop heparin and restart plavix 75 mg and aspirin 81 mg daily 5. likely no surgical intervention for vascular issues 6. PT/OT for discharge needs Supervising Physician Co-Signing Physician Notes I have seen and discussed above patient with Dr Ariana Steve, neurology Pt seen and examined. recurrent episodes of language dysfunction, and RLE weakness, at home lasted approx 20 min, here, 30 seconds. Initially placed on asa, plavix, with recurrent spells. CTA shows focal dissection R petrous carotid (asymptomatic), and high grade L MCA, REMIGIO stenosis. Advised of such I recommended to Dr Schulte to start heparin without bolus, try to raise bp. Exam speech, language nml, had difficulty naming stethoscope, which may not be pathologic. No asymmetric weakness. It is likely pt is sympomatic from the L MCA stenosis. Rec tx, as above, risk factor modification. Hopefully the spells will settle down and we will use heparin for several days, then back to dual antiplt tx. If recurrent spells would also rec EEG. I explained to pt that intracranial stenosis is rarely treated operatively. JACQUELYN Steve MD History of Present Illness Reason for Consultation: transient aphasia RLE weakness Requesting Physician: Garcia Schulte MD Attending Physician: Garcia Schulte MD History of Present Illness Randy is an 87 year old male who has a PMH cardiomyopathy, SSS with pacer, metastatic prostrate CA diagnosed in 2000. He follows with Dr Wilmer Cameron. His states he was sitting at the table after he took a shower. He states he was having some slurred speech and word finding issues. He stood to walk toward his and she noticed some RLE weakness and he was dragging his foot. She helped him to the floor but then was unable to get up. She called his sons and they came over and helped get him up. At that point he was able to help with getting off the floor. He had another similar episode his gave him an aspirin under his tongue and they brought him to the ED. The episodes lasted about an hour. He states he didn't have a LOC but his states he had a loss of awareness. Allergies Allergy/AdvReac Type Severity Reaction Status Date / Time No Known Allergies Allergy Unknown Verified 07/27/18 18:27 Home Medications Home Medications Medication Instructions Recorded Confirmed Type Dandelion Root 250 mg PO 2XWK 07/27/18 07/27/18 History cholecalciferol (vitamin D3) 5,000 unit PO DAILY 07/27/18 07/27/18 History [Vitamin D3] enzalutamide [Xtandi] 160 mg PO DAILY 07/27/18 07/27/18 History furosemide [Lasix] 40 mg PO UD 07/27/18 07/27/18 History furosemide [Lasix] 60 mg PO UD 07/27/18 07/27/18 History magnesium oxide 400 mg PO DAILY 07/27/18 07/27/18 History metoprolol succinate 25 mg PO DAILY 07/27/18 07/27/18 History polyethylene glycol 3350 [Miralax] 17 g PO DAILY PRN 07/27/18 07/27/18 History potassium chloride 10 meq PO DAILY 07/27/18 07/27/18 History spironolactone 12.5 mg PO DAILY 07/27/18 07/27/18 History tramadol 50 mg PO Q8 PRN 07/27/18 07/27/18 History Patient History Medical History Chronic left ventricular systolic heart failure (Chronic) LVEF 35-40% per echo 09/11/15 CKD (chronic kidney disease), stage III (Chronic) Pulmonary nodules (Chronic) metastatic prostate Ca Bone metastasis (Chronic) Prostate CA (Chronic ~2000) Mets to bone and lung. "Adenocarcinoma the prostate Biopsy stage T2c [place] grade 4+4 and 4+ 05/29/2000 Status post TURP October 2007 Trev score 4+4 in 60% of the specimen Status post orchiectomy 2008 due to bone metastasis Status post radiation therapy to the sacrum 05/14/2011 received 3900 cGy Status post completion of radiation therapy to the thoracic/lumbar spine completed 06/17/2014 received 3750 cGy Ongoing treatment with Xtandi" SSS (sick sinus syndrome) (Chronic) History of nephrolithiasis (Chronic) Surgical History Status post cardiac pacemaker procedure (Chronic) Status post cholecystectomy (Chronic) Status post hernia repair (Chronic) Status post orchiectomy (Chronic) Family History Brother Prostate CA Uncle Prostate CA Brother Diabetes mellitus Mother Coronary artery disease Other Family history non-contributory Social History Communication Ability: Impaired Beliefs That Will Affect Care: None Current Living Situation: Spouse current occupational status: retired current occupation: retired [employer] Other Information That Helps Us Care for You: No Feels Safe at Home: Yes Safety Concerns: Feels Safe At This Time Smoking Status: Former smoker Hx Alcohol Use: No Hx Substance Use: No Physical Exam Vital Signs (Past 24 Hours): Last Vital Signs Temp 37.2 C 07/28/18 11:34 Pulse 65 07/28/18 11:34 Resp 18 07/28/18 11:34 BP 126/72 07/28/18 11:34 Pulse Ox 94 07/28/18 11:34 Physical Exam: Constitutional: appearance over nourished Ears, Nose, Mouth and Throat: mucous membranes moist, no injection and skin normal, eyes normal Cardiovascular: normal S-1 and S-2 and regular rate and rhythm Respiratory: course breath sounds Musculoskeletal: no peripheral edema and good distal pulses Skin: no stigmata of neurocutaneous disease noted and normal and intact Eyes: extraocular muscles intact (EOMI) and pupils equal, round and reactive to light (PERRL), gross peripheral vision intact NEUROLOGIC EXAMINATION: Mental status: Alert and interactive Oriented to [facility], winter 2018, Brenda President knows and her name Oriented to person Speech fluent with no evidence of aphasia Cranial Nerves smile eye brow raise symmetric Reflexes: Deep tendon reflexes were symmetrical decreased in LE. Plantar responses up going toes. Sensory: intact to light and cool touch Coordination: finger to nose no bi pass Gait/Stance: Posture lying in bed able to reposition himself Motor: Negative for pronator drift of out stretched arms with eyes closed. Strength: biceps triceps hand console operator 5/5 bilaterally hip flex plantar flex ext bilaterally 5/5 Results & Data Laboratory Results Abnormal lab results 07/27/18 07/27/18 07/27/18 Range/Units 17:08 17:08 17:11 RBC 4.10 L (4.7-6.1) M/uL Hgb 12.7 L (14.0-18.0) g/dL POC Hgb 12.6 L (14.0-18.0) g/dl Hct 37.9 L (42-52) % POC Hct 37 L (42-52) % RDW Std Deviation 49.3 H (36.4-46.3) fL RDW Coeff of Carlos A 14.6 H (11.5-14.5) % Lymph # (Auto) (1.2-3.4) K/uL [place] # (Auto) 0.75 H (0.11-0.59) K/uL POC Chloride 99 L (101-112) mEq/L POC BUN 25 H (7-18) mg/dl Glucose 119 H (70-99) mg/dl POC Glucose (70-99) POC Glucose (other) 120 H (70-99) mg/dl Hemoglobin A1c (4.5-5.6) % Magnesium 2.7 H (1.8-2.4) mg/dl Globulin 4.1 H (2.5-4.0) gm/dl Albumin/Globulin Ratio 0.8 L (0.9-2) Triglycerides (0-150) mg/dl Cholesterol (0-200) mg/dl 07/27/18 07/28/18 07/28/18 Range/Units 17:25 06:11 06:11 RBC 3.96 L (4.7-6.1) M/uL Hgb 12.2 L (14.0-18.0) g/dL POC Hgb (14.0-18.0) g/dl Hct 36.5 L (42-52) % POC Hct (42-52) % RDW Std Deviation 49.2 H (36.4-46.3) fL RDW Coeff of Carlos A (11.5-14.5) % Lymph # (Auto) 1.19 L (1.2-3.4) K/uL [place] # (Auto) 0.72 H (0.11-0.59) K/uL POC Chloride (101-112) mEq/L POC BUN (7-18) mg/dl Glucose 122 H (70-99) mg/dl POC Glucose 118 H (70-99) POC Glucose (other) (70-99) mg/dl Hemoglobin A1c (4.5-5.6) % Magnesium (1.8-2.4) mg/dl Globulin (2.5-4.0) gm/dl Albumin/Globulin Ratio (0.9-2) Triglycerides 182 H (0-150) mg/dl Cholesterol 225 H (0-200) mg/dl 07/28/18 Range/Units 06:11 RBC (4.7-6.1) M/uL Hgb (14.0-18.0) g/dL POC Hgb (14.0-18.0) g/dl Hct (42-52) % POC Hct (42-52) % RDW Std Deviation (36.4-46.3) fL RDW Coeff of Carlos A (11.5-14.5) % Lymph # (Auto) (1.2-3.4) K/uL [place] # (Auto) (0.11-0.59) K/uL POC Chloride (101-112) mEq/L POC BUN (7-18) mg/dl Glucose (70-99) mg/dl POC Glucose (70-99) POC Glucose (other) (70-99) mg/dl Hemoglobin A1c 7.0 H (4.5-5.6) % Magnesium (1.8-2.4) mg/dl Globulin (2.5-4.0) gm/dl Albumin/Globulin Ratio (0.9-2) Triglycerides (0-150) mg/dl Cholesterol (0-200) mg/dl Diagnostic Findings CT head- No acute intracranial abnormality. repeat 07/28/2018 no evidence of stroke CTA head/neck- Extensive mixed plaque formation of the thoracic aorta and bilateral carotid bulbs. There is less than 50% luminal narrowing about the bilateral proximal internal carotid arteries. Focal high-grade stenosis at the origin of the left M1 and A1 segments with additional focal area of high-grade stenosis about the distal left M1 segment just proximal to the trifurcation, likely secondary to underlying atheromatous plaque. 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
[2018-07-28] MEDS: FUROSEMIDE 40 MG TAB PO SCH (17:10)
[2018-07-28 20:37] LABS: Partial Thromboplastin Ratio 1.5; Partial Thromboplastin Time 41.5 Seconds (21.0-31.0)
[2018-07-28] MEDS ORDERED: HEPARIN IV BOLUS 4,000 UNITS in SYRINGE 0 ML IV ONE (20:51)
[2018-07-29 03:28] LABS: Basophils # (auto) 0.01 K/uL (0-0.2); Basophils % (auto) 0.3 %; Eosinophils # (auto) 0.08 K/uL (0-0.5); Hematocrit (blood only) 34.5 % (42-52); Hemoglobin 11.5 g/dL (14.0-18.0); Immature Granulocytes # (auto) 0.01 K/uL (0.00-0.02); Immature Granulocytes % (auto) 0.3 %; Lymphocytes # (auto) 1.22 K/uL (1.2-3.4); Mean Corpuscular Hgb Conc 33.3 g/dL (32-36); Mean Platelet Volume 9.5 fL (7.4-10.4); Monocytes # (auto) 0.58 K/uL (0.11-0.59); Monocytes % (auto) 14.7 %; Neutrophils # (auto) 2.04 K/uL (1.4-6.5); Neutrophils % (auto) 51.7 %; Platelet Count 168 K/uL (130-400); RDW Coefficient of Variation 14.5 % (11.5-14.5); RDW Standard Deviation 48.8 fL (36.4-46.3); Red Blood Count 3.75 M/uL (4.7-6.1); White Blood Count 3.94 K/uL (4.8-10.8)
[2018-07-29 03:44] LABS: BUN Creatinine Ratio 14.1 (10-20); Calcium 8.2 mg/dl (8.5-10.1); Creatinine Clr Calc Pharmacy 59.3 ml/min; Est GFR (African American) 69.6; Potassium 3.3 mmol/L (3.5-5.1)
[2018-07-29 04:02] LABS: Partial Thromboplastin Ratio 4.1
[2018-07-29 04:35] LABS: Partial Thromboplastin Time 110.3 Seconds (21.0-31.0)
[2018-07-29] MEDS: HEPARIN STANDARD DEXTROSE 25,000 UNITS/500 ML IV SCH ×2 (05:52→22:36)
[2018-07-29] MEDS: METOPROLOL SUCC 25MG EXT REL TAB PO SCH ×2 (09:53→10:00)
[2018-07-29] MEDS: SPIRONOLACTONE 25 MG TAB PO SCH ×2 (09:54→10:29)
[2018-07-29] MEDS: ATORVASTATIN 40 MG TAB PO SCH (09:54)
[2018-07-29] MEDS: MAGNESIUM OXIDE 400 MG TAB PO SCH (09:54)
[2018-07-29] MEDS: CLOPIDOGREL BISULFATE 75 MG TAB PO SCH (09:54)
[2018-07-29] MEDS: FUROSEMIDE 40 MG TAB PO SCH ×3 (09:54→18:25)
[2018-07-29] MEDS: ASPIRIN 81 MG ECTAB PO SCH (09:54)
[2018-07-29] MEDS: POTASSIUM CHLORIDE 10 MEQ TABCR PO SCH (09:55)
[2018-07-29 12:07] LABS: Partial Thromboplastin Ratio 2.3
[2018-07-29 12:08] LABS: Partial Thromboplastin Time 61.1 Seconds (21.0-31.0)
--- NOTE | 2018-07-29 12:27 | Hospitalist Progress Note ---
Date of Service July 29, 2018 Assessment & Plan (1) Stroke-like symptoms: POSSIBLE TIA HIGH GRADE STENOSIS MCA AND REMIGIO R/O ORTHOSTASIS Per Dr. Sutton' notes: Reported dysarthria, expressive aphasia, RLE weakness this morning. Exact duration of symptoms uncertain, but apparently less than 1 hour. Presented to ED about 5 hours after onset of symptoms. Possible brief episode of recurrent aphasia in ED. Stroke alert called in ED. No acute findings on CT of head. CTA HEAD: extensive atherosclerosis of thoracic aorta and bilateral carotid bulbs less than 50% stenosis of bilateral ICA's focal high grade stenoses of M1 and origin of A1 focal age-indeterminate short segment dissection right ICA echo: reviewed only had 1 episode of neuro symptoms continue heparin drip continue ASA, Plavix, Lipitor maintain BP on the high normal side for 24-28 hours PT / OT / ROSE GROWER evals Neuro consulted, appreciate the recommendations (2) Syncope: recurrent syncope occuring 1/2x/week, no prodrome Pacemaker interrogation to review arrhythmia history and rule out pacemaker malfunction. Check orthostatic vital signs. on Lasix 40mg and 60mg, Metoprolol succinate 25g po daily Lasix held today to avoid hypotension Metoprolol reduced to 12.5mg daily to allow systolic bp in the 140s Cardiology consulted (3) Chronic left ventricular systolic heart failure: Chronic left ventricular systolic heart failure with LVEF 35-40% per echo 2016. No SAMARA or ARB due to CKD. euvolemic Cardiology consulted (4) Status post cardiac pacemaker procedure: Pacemaker interrogation requested. (5) Pulmonary nodules: Small pulmonary nodules noted on CTA neck. 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 No need for further evaluation at this time. (6) CKD (chronic kidney disease), stage III: Serum creatinine 1.36. Follow. 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 Ongoing management per Dr. Cameron. (8) DVT prophylaxis: Increased risk for VTE. on heparin drip Ambulate. (9) Discharge planning issues: Anticipated discharge to home. Family Medicine follow-up with Dr. Dong. Cardiology follow-up with Wes Jeffries PA-C. Medical Oncology follow-up with Dr. Wilmer Cameron. Subjective ff up for possible TIA only had one episode of dysarthria, r sided weakness seen resting in bed, comfortable, in good spirits denies neuro symptoms states he feels improved overall denies chest pain, dyspnea, dizziness denies other symptoms Physical Exam Vital Signs (Past 24 Hours): Last Vital Signs Temp 36.5 C 07/29/18 07:55 Pulse 76 07/29/18 07:55 Resp 27 H 07/29/18 07:55 BP 119/66 07/29/18 07:55 Pulse Ox 96 07/29/18 07:55 Physical Exam: General- oriented x 3, not in distress, speaks in sentences with no effort or accessory muscle use Eyes- anicteric Neck- no JVD Lungs- clear breath sounds bilaterally no rales no wheezing Heart- normal rate, regular rhythm; no murmurs Abdomen- normal bowel sounds, nondistended, soft, nontender Extremities- no pretibial edema, no calf tenderness Neuro- alert, oriented x 3; no gross focal neurologic deficits Skin- warm & dry Results & Data Laboratory Results Laboratory Results - last 24 hr 07/28/18 07/29/18 07/29/18 19:57 02:59 02:59 WBC 3.94 L RBC 3.75 L Hgb 11.5 L Hct 34.5 L MCV 92.0 MCH 30.7 MCHC 33.3 RDW Std Deviation 48.8 H RDW Coeff of Carlos A 14.5 Plt Count 168 MPV 9.5 Immature Gran % (Auto) 0.3 Neut % (Auto) 51.7 Lymph % (Auto) 31.0 [place] % (Auto) 14.7 Eos % (Auto) 2.0 Baso % (Auto) 0.3 Immature Gran # (Auto) 0.01 Neut # (Auto) 2.04 Lymph # (Auto) 1.22 [place] # (Auto) 0.58 Eos # (Auto) 0.08 Baso # (Auto) 0.01 APTT 41.5 H PTT Ratio 1.5 Sodium 139 Potassium 3.3 L Chloride 106 Carbon Dioxide 25 Anion Gap 8.0 BUN 15 Creatinine 1.10 Est Cr Clr Drug Dosing 59.3 Est GFR ( Amer) 69.6 Est GFR (Non-Af Amer) 60.0 BUN/Creatinine Ratio 14.1 Glucose 125 H Estimat Average Glucose Hemoglobin A1c Calcium 8.2 L 07/29/18 07/29/18 07/29/18 02:59 02:59 11:37 WBC RBC Hgb Hct MCV MCH MCHC RDW Std Deviation RDW Coeff of Carlos A Plt Count MPV Immature Gran % (Auto) Neut % (Auto) Lymph % (Auto) [place] % (Auto) Eos % (Auto) Baso % (Auto) Immature Gran # (Auto) Neut # (Auto) Lymph # (Auto) [place] # (Auto) Eos # (Auto) Baso # (Auto) APTT 110.3 H* 61.1 H* PTT Ratio 4.1 2.3 Sodium Potassium Chloride Carbon Dioxide Anion Gap BUN Creatinine Est Cr Clr Drug Dosing Est GFR ( Amer) Est GFR (Non-Af Amer) BUN/Creatinine Ratio Glucose Estimat Average Glucose 154 Hemoglobin A1c 7.0 H Calcium
[2018-07-29 12:53] LABS: Estimated Average Glucose 154 mg/dl
--- NOTE | 2018-07-29 14:01 | Neurology Progress Note ---
Date of Service July 29, 2018 Assessment & Plan (1) Stroke-like symptoms: 1. CT head no acute findings 2. blood pressure should be slightly elevated to allow good blood flow to brain 140/80 3. heparin gtt to optimize blood thinning and avoid further events - x 2-3 days 4. continue plavix 75 mg and aspirin 81 mg daily 5. likely no surgical intervention for vascular issues 6. PT/OT for discharge needs speech therapy for dysarthria issues 7. fall precautions Supervising Physician Co-Signing Physician Notes I have seen and discussed above patient with Dr Ariana Steve, neurology Pt seen and examined, sx L mca stenosis, Heparin tx transition to dual-antiplt tx. JACQUELYN Steve MD Jerod Padilla is an 87 year old male who has a H cardiomyopathy, SSS with pacer, metastatic prostrate CA diagnosed in 2000. He follows with Dr Wilmer Cameron. His states he was sitting at the table after he took a shower. He states he was having some slurred speech and word finding issues. He stood to walk toward his and she noticed some RLE weakness and he was dragging his foot. She helped him to the floor but then was unable to get up. She called his sons and they came over and helped get him up. At that point he was able to help with getting off the floor. He had another similar episode his gave him an aspirin under his tongue and they brought him to the ED. The episodes lasted about an hour. He states he didn't have a LOC but his states he had a loss of awareness. He states he is doing better today and walked with PT today and did well. states he had some psychosis this am but resolved spontaneously once she oriented him. Physical Exam Vital Signs (Past 24 Hours): Last Vital Signs Temp 36.5 C 07/29/18 07:55 Pulse 80 07/29/18 12:52 Resp 27 H 07/29/18 07:55 BP 143/80 H 07/29/18 12:52 Pulse Ox 96 07/29/18 07:55 Gen: alert NAD PERRL EOM lungs course breath sounds CV RRR strength bilateral UE biceps triceps hand information technology audit manager 5/5, hip flex 4+/5 bilaterally oriented to hospital, president year, can identify button, coat, thumb, has some dysarthria with trying to form sentences no pronator drift finger to nose no bi pass Results & Data Laboratory Results Abnormal lab results 07/28/18 07/29/18 07/29/18 Range/Units 19:57 02:59 02:59 WBC 3.94 L (4.8-10.8) K/uL RBC 3.75 L (4.7-6.1) M/uL Hgb 11.5 L (14.0-18.0) g/dL Hct 34.5 L (42-52) % RDW Std Deviation 48.8 H (36.4-46.3) fL APTT 41.5 H (21.0-31.0) Seconds Potassium 3.3 L (3.5-5.1) mmol/L Glucose 125 H (70-99) mg/dl Hemoglobin A1c (4.5-5.6) % Calcium 8.2 L (8.5-10.1) mg/dl 07/29/18 07/29/18 07/29/18 Range/Units 02:59 02:59 11:37 WBC (4.8-10.8) K/uL RBC (4.7-6.1) M/uL Hgb (14.0-18.0) g/dL Hct (42-52) % RDW Std Deviation (36.4-46.3) fL APTT 110.3 H* 61.1 H* (21.0-31.0) Seconds Potassium (3.5-5.1) mmol/L Glucose (70-99) mg/dl Hemoglobin A1c 7.0 H (4.5-5.6) % Calcium (8.5-10.1) mg/dl Diagnostic Findings pacer interrogation no issues.
--- NOTE | 2018-07-29 17:07 | Cardiology Progress Note ---
Date of Service July 29, 2018 Assessment & Plan (1) Stroke-like symptoms: Telemetry and pacemaker interrogation demonstrates no evidence of atrial fibrillation or flutter. CTA of the head and neck demonstrating vascular disease: Extensive mixed plaque formation of the thoracic aorta and bilateral carotid bulbs. There is less than 50% luminal narrowing about the bilateral proximal internal carotid arteries. Focal high-grade stenosis at the origin of the left M1 and A1 segments with additional focal area of high-grade stenosis about the distal left M1 segment just proximal to the trifurcation, likely secondary to underlying atheromatous plaque. 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 Current medical management of acute CVA per neurology including aspirin, Plavix, and heparin infusion. Lasix on hold in an attempt to maintain systolic blood pressure closer to 140 mmHg. Continue statin therapy. (2) Cerebrovascular disease: Add high intensity statin therapy. (3) TIA (transient ischemic attack): (4) Status post cardiac pacemaker procedure: History of sick sinus syndrome. RV pacing lead malfunction requiring revision on 10/23/17. Normal pacemaker function Normal function per interrogation 07/28/2018. (5) Chronic diastolic heart failure: Mild chronic edema noted. Chronic dyspnea on exertion stable. Lasix currently on hold as noted above. Will monitor edema, fluid balance daily. History of catecholaminergic cardiomyopathy. Repeat echocardiogram demonstrates preserved LV systolic function with frequent PVCs and right ventricular pacing. Subjective Patient seen and examined at the bedside. More alert today. is present as well. No recurrent facial droop or focal weakness overnight. Neurology recommending maintaining systolic blood pressure closer to 140. Lasix on hold. Edema controlled. No new complaints overnight. Telemetry demonstrates AV sequential pacing. No evidence of atrial fibrillation. Review of Systems All systems reviewed & are unremarkable except as noted in HPI & below Physical Exam Vital Signs (Past 24 Hours): Last Vital Signs Temp 36.5 C 07/29/18 15:21 Pulse 62 07/29/18 15:21 Resp 18 07/29/18 15:21 BP 127/51 L 07/29/18 15:21 Pulse Ox 95 07/29/18 15:21 Physical Exam: General: NAD, AAO x3, well nourished. HEENT: Normocephalic. Atraumatic. Conjunctiva pink, no scleral icterus. Neck: No carotid bruits, the carotid upstrokes are brisk. No JVD. No HJR Heart: Regular normal S-1 and S-2 no S-3 or S-4 gallop. No murmurs or rub appreciated. PMI is not displaced. No RV heave. Lungs: Clear bilateral without rales , rhonchi, or wheeze. Abdomen: Normal bowel sounds. Soft. Nontender. No masses or organomegaly. No abdominal bruits. Extremities: No clubbing, or cyanosis. 1+ bilateral pedal and ankle edema. Pulses: radial=2/4, posterior tibial=2/4. Neuro: Right-sided facial droop.+ Confusion. Poor historian. Moves all 4 extremities. No focal weakness appreciated.
[2018-07-30 05:08] LABS: Basophils # (auto) 0.02 K/uL (0-0.2); Basophils % (auto) 0.5 %; Eosinophils # (auto) 0.14 K/uL (0-0.5); Eosinophils % (auto) 3.4 %; Hemoglobin 11.3 g/dL (14.0-18.0); Immature Granulocytes # (auto) 0.01 K/uL (0.00-0.02); Immature Granulocytes % (auto) 0.2 %; Lymphocytes # (auto) 1.35 K/uL (1.2-3.4); Lymphocytes % (auto) 32.6 %; Mean Corpuscular Hgb Conc 33.2 g/dL (32-36); Mean Corpuscular Volume 92.6 fL (80-100); Mean Platelet Volume 9.4 fL (7.4-10.4); Monocytes # (auto) 0.41 K/uL (0.11-0.59); Monocytes % (auto) 9.9 %; Neutrophils # (auto) 2.21 K/uL (1.4-6.5); Neutrophils % (auto) 53.4 %; Platelet Count 150 K/uL (130-400); RDW Coefficient of Variation 14.4 % (11.5-14.5); RDW Standard Deviation 48.6 fL (36.4-46.3); Red Blood Count 3.67 M/uL (4.7-6.1); White Blood Count 4.14 K/uL (4.8-10.8)
[2018-07-30 05:28] LABS: BUN Creatinine Ratio 12.8 (10-20); Calcium 8.3 mg/dl (8.5-10.1); Creatinine Clr Calc Pharmacy 56.4 ml/min; Est GFR (African American) 65.3; Est GFR (Non-African American) 56.3; Potassium 3.7 mmol/L (3.5-5.1)
[2018-07-30 05:33] LABS: Partial Thromboplastin Ratio 2.4
[2018-07-30 05:49] LABS: Partial Thromboplastin Time 65.8 Seconds (21.0-31.0)
[2018-07-30] MEDS: METOPROLOL SUCC 25MG EXT REL TAB PO SCH (09:00)
[2018-07-30] MEDS ORDERED: FUROSEMIDE 40 MG TAB PO SCH (09:00)
[2018-07-30] MEDS: CLOPIDOGREL BISULFATE 75 MG TAB PO SCH (09:00)
[2018-07-30] MEDS: ATORVASTATIN 40 MG TAB PO SCH (09:00)
[2018-07-30] MEDS: POTASSIUM CHLORIDE 10 MEQ TABCR PO SCH (09:01)
[2018-07-30] MEDS: MAGNESIUM OXIDE 400 MG TAB PO SCH (09:01)
[2018-07-30] MEDS: ASPIRIN 81 MG ECTAB PO SCH (09:01)
[2018-07-30] MEDS: SPIRONOLACTONE 25 MG TAB PO SCH (10:29)
[2018-07-30] MEDS: FUROSEMIDE 40 MG TAB PO SCH (10:29)
[2018-07-30] MEDS ORDERED: FUROSEMIDE 10 MG/ML 60ML BOTTLE PO ONE (10:30)
--- NOTE | 2018-07-30 15:21 | Neurology Progress Note ---
Date of Service July 30, 2018 Assessment & Plan (1) Stroke-like symptoms: 1. CT head no acute findings 2. blood pressure should be slightly elevated to allow good blood flow to brain 140/80 3. heparin gtt to optimize blood thinning and avoid further events - x 2-3 days is now stopped 4. continue plavix 75 mg and aspirin 81 mg daily- may need to continue for a lifetime will review at follow up visit 5. likely no surgical intervention for vascular issues 6. PT/OT for discharge needs speech therapy for dysarthria issues with seem to be resolving 7. fall precautions 8. ok to discharge when medically stable follow up with Ariana VÁSQUEZ, neurology in 4-6 weeks after discharge. Supervising Physician Co-Signing Physician Notes I have seen and discussed above patient with Dr Ariana Steve, neurology Pt seen, examined, no deficit. Imp symptomatic L MCA stenosis, observe off heparin with dual antiplt tx. Asx R petrous carotid dissection, age indeterminate. JACQUELYN Steve MD Jerod Padilla is an 87 year old male who has a PMH cardiomyopathy, SSS with pacer, metastatic prostrate CA diagnosed in 2000. He follows with Dr Wilmer Cameron. His states he was sitting at the table after he took a shower. He states he was having some slurred speech and word finding issues. He stood to walk toward his and she noticed some RLE weakness and he was dragging his foot. She helped him to the floor but then was unable to get up. She called his sons and they came over and helped get him up. At that point he was able to help with getting off the floor. He had another similar episode his gave him an aspirin under his tongue and they brought him to the ED. The episodes lasted about an hour. He states he didn't have a LOC but his states he had a loss of awareness. He and his report he is doing better today. not as much speech issues and has been up and walking with PT. 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
--- NOTE | 2018-07-30 19:03 | Hospitalist Progress Note ---
Date of Service July 30, 2018 Assessment & Plan (1) Stroke-like symptoms: POSSIBLE TIA HIGH GRADE STENOSIS MCA AND REMIGIO R/O ORTHOSTASIS Per Dr. Sutton' notes: Reported dysarthria, expressive aphasia, RLE weakness this morning. Exact duration of symptoms uncertain, but apparently less than 1 hour. Presented to ED about 5 hours after onset of symptoms. Possible brief episode of recurrent aphasia in ED. Stroke alert called in ED. No acute findings on CT of head. 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 Check orthostatic vital signs. on Lasix 40mg and 60mg, Metoprolol succinate 25g po daily Lasix reduced to 20mg po one dose today Metoprolol reduced to 12.5mg daily to allow systolic bp in the 140s Cardiology consulted (3) Chronic left ventricular systolic heart failure: Chronic left ventricular systolic heart failure with LVEF 35-40% per echo 2016. No SAMARA or ARB due to CKD. has some mild arm edema Lasix 20mg po one dose today reassess in AM (4) Status post cardiac pacemaker procedure: Pacemaker interrogation requested. (5) Pulmonary nodules: Small pulmonary nodules noted on CTA neck. 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 No need for further evaluation at this time. (6) CKD (chronic kidney disease), stage III: Serum creatinine 1.36. Follow. 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 Ongoing management per Dr. Cameron. (8) DVT prophylaxis: Increased risk for VTE. heparin SC ordered Ambulate. (9) Discharge planning issues: Anticipated discharge to home. Family Medicine follow-up with Dr. Dong. Cardiology follow-up with Wes Jeffries PA-C. Medical Oncology follow-up with Dr. Wilmer Cameron. Subjective ff up for possible TIA, stenosis of MCA, REMIGIO seen resting in bed, comfortable at bedside, reports patient is improved overall, no episodes of dysarthria, weakness patient is in goood spirits, confirms he feels better today denies any new focal neurologic symptoms no chest pain, shortness of breath, weakness denies other symptoms Physical Exam Vital Signs (Past 24 Hours): Last Vital Signs Temp 36.4 C L 07/30/18 15:27 Pulse 68 07/30/18 15:27 Resp 18 07/30/18 15:27 BP 125/57 L 07/30/18 15:27 Pulse Ox 95 07/30/18 15:27 Physical Exam: General- oriented x 3, not in distress, speaks in sentences with no effort or accessory muscle use Eyes- anicteric Neck- no JVD Lungs- clear breath sounds bilaterally,no crackles/wheezing Heart- normal rate, regular rhythm; no murmurs Abdomen- normal bowel sounds, nondistended, soft, nontender Extremities- mild edema of bilateral hands/forearm, trace pretibial edema, no calf tenderness Neuro- alert, oriented x 3; no gross focal neurologic deficits Skin- warm & dry Results & Data Laboratory Results Laboratory Results - last 24 hr 07/30/18 07/30/18 07/30/18 04:42 04:42 04:42 WBC 4.14 L RBC 3.67 L Hgb 11.3 L Hct 34.0 L MCV 92.6 MCH 30.8 MCHC 33.2 RDW Std Deviation 48.6 H RDW Coeff of Carlos A 14.4 Plt Count 150 MPV 9.4 Immature Gran % (Auto) 0.2 Neut % (Auto) 53.4 Lymph % (Auto) 32.6 Mckenzie % (Auto) 9.9 Eos % (Auto) 3.4 Baso % (Auto) 0.5 Immature Gran # (Auto) 0.01 Neut # (Auto) 2.21 Lymph # (Auto) 1.35 Mckenzie # (Auto) 0.41 Eos # (Auto) 0.14 Baso # (Auto) 0.02 APTT 65.8 H* PTT Ratio 2.4 Sodium 137 Potassium 3.7 Chloride 106 Carbon Dioxide 25 Anion Gap 6.0 BUN 15 Creatinine 1.16 Est Cr Clr Drug Dosing 56.4 Est GFR ( Amer) 65.3 Est GFR (Non-Af Amer) 56.3 BUN/Creatinine Ratio 12.8 Glucose 124 H Calcium 8.3 L
[2018-07-30] MEDS: HEPARIN SOD 5,000 UNIT/0.5 ML VIAL SQ SCH (21:10)
[2018-07-31 07:20] LABS: Partial Thromboplastin Ratio 0.8; Partial Thromboplastin Time 20.5 Seconds (21.0-31.0)
[2018-07-31] MEDS: CLOPIDOGREL BISULFATE 75 MG TAB PO SCH (09:02)
[2018-07-31] MEDS: METOPROLOL SUCC 25MG EXT REL TAB PO SCH (09:02)
[2018-07-31] MEDS: ATORVASTATIN 40 MG TAB PO SCH (09:02)
[2018-07-31] MEDS: MAGNESIUM OXIDE 400 MG TAB PO SCH (09:02)
[2018-07-31] MEDS: ASPIRIN 81 MG ECTAB PO SCH (09:02)
[2018-07-31] MEDS: POTASSIUM CHLORIDE 10 MEQ TABCR PO SCH (09:03)
[2018-07-31] MEDS: HEPARIN SOD 5,000 UNIT/0.5 ML VIAL SQ SCH (09:05)
--- NOTE | 2018-07-31 11:21 | Hospitalist Progress Note ---
Date of Service July 31, 2018 Assessment & Plan (1) Stroke-like symptoms: POSSIBLE TIA HIGH GRADE STENOSIS MCA AND REMIGIO R/O ORTHOSTASIS Per Dr. Sutton' notes: Reported dysarthria, expressive aphasia, RLE weakness this morning. Exact duration of symptoms uncertain, but apparently less than 1 hour. Presented to ED about 5 hours after onset of symptoms. Possible brief episode of recurrent aphasia in ED. Stroke alert called in ED. No acute findings on CT of head. 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 daily Plavix 70 mg p.o. daily Lipitor 40 mg p.o. daily To prevent hypotension and promote adequate cerebral perfusion, metoprolol is been reduced to 12.5 mg p.o. daily and Lasix 40 mg p.o. daily Follow-up with primary care physician in 1 week Follow-up with neurology service in 2 weeks (2) Syncope: recurrent syncope occuring 1/2x/week, no prodrome Pacemaker interrogation to review arrhythmia history and rule out pacemaker malfunction. Check orthostatic vital signs. on Lasix 40mg and 60mg, Metoprolol succinate 25g po daily Discussed with cardiology To prevent hypotension and promote adequate cerebral perfusion, metoprolol is been reduced to 12.5 mg p.o. daily and Lasix 40 mg p.o. daily (3) Chronic left ventricular systolic heart failure: Chronic left ventricular systolic heart failure with LVEF 35-40% per echo 2016. No SAMARA or ARB due to CKD. Diuretic management as noted above (4) Status post cardiac pacemaker procedure: Pacemaker interrogationPerformed, unremarkable (5) Pulmonary nodules: Has t prostate cancer with metastasis to the lungs seen on CT neck: No pneumothorax. Calcified granuloma of the right upper lobe. There are a few indeterminate scattered solid nodules noted about the lung apices measuring up to 4 mm. Soft tissues appear unremarkable. No acute abnormality of the imaged intracranial structures. Multilevel degenerative changes of the spine. -- further evaluationAnd Management as an outpatient (6) CKD (chronic kidney disease), stage III: Serum creatinine 1.36. Follow. 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 Ongoing management per Dr. Cameron. (8) DVT prophylaxis: SCDs, Heparin Disposition Discharge home today Follow-up with primary care physician as outlined in discharge instructions Follow-up with neurology in 2 weeks Follow-up with economics faculty member as scheduled (9) Discharge planning issues: Anticipated discharge to home. Family Medicine follow-up with Dr. Dong. Cardiology follow-up with Wes Jeffries PA-C. Medical Oncology follow-up with Dr. Wilmer Cameron. Subjective ff up for possible TIAs seen resting in bed, comfortable Patient's is also at the bedside States he continues to improve and is better overall Had 2 episodes of few seconds he was having difficulty expressing his thoughts but otherwise no facial drooping, dysarthria, weakness noted Patient denies shortness of breath, chest pain, dizziness Ambulate to the toilet with no problems States he is comfortable and would like to be discharged today Patient's agrees Physical Exam Vital Signs (Past 24 Hours): Last Vital Signs Temp 36.5 C 07/31/18 07:51 Pulse 69 07/31/18 07:51 Resp 20 07/31/18 07:51 BP 133/77 07/31/18 07:51 Pulse Ox 97 07/31/18 07:51 Physical Exam: General- oriented x 2, not in distress, speaks in sentences with no effort or accessory muscle use Eyes- anicteric Neck- no JVD Lungs- clear breath sounds bilaterally, No crackles or wheezing Heart- normal rate, regular rhythm; no murmurs Abdomen- normal bowel sounds, nondistended, soft, nontender Extremities- no pretibial edema, no calf tenderness Positive bilateral pedal edema Neuro- alert, oriented x 3; no gross focal neurologic deficits Skin- warm & dry Results & Data Laboratory Results Laboratory Results - last 24 hr 07/31/18 07/31/18 04:59 04:59 APTT 20.5 L PTT Ratio 0.8 Prostate Specific Ag 197.000 H
[2018-07-31] MEDS ORDERED: FUROSEMIDE 40 MG TAB PO SCH (12:00)
[2018-07-31] MEDS ORDERED: STROKE PATIENT DISCHARGE STA (12:22)
--- NOTE | 2018-07-31 12:24 | Discharge Summary ---
Date of Service July 31, 2018 Admission HPI Per Admitting Provider 87 YO male followed by Dr. Clement for Family Medicine, Wes Jeffries PA-C for Cardiology, and Dr. Wilmer Cameron for Medical Oncology. History of cardiomyopathy, sick sinus syndrome with pacemaker, metastatic prosta te Ca, and other problems. Lives at home with his and is able to perform ADL's independently, although functional status has been declining and he spends most of his time on the first floor of their home. He was in his usual state of health until this morning around 11:30. His noted abnormal speech while he was sitting in a chair; she describes both slurred speech and difficulty with word finding. He then stood up to walk across the room and his noted that he was dragging his right foot. He was unable to continue ambulating because of weakness and lowered himself gently to the floor without injury. feels that he may have transiently lost consciousness, but patient disagrees. No seizure activity. No headache. No additional focal neuro symptoms today. No associated chest pain, palpitations, SOB . Duration of symptoms uncertain, but less than 1 hour. Family assisted him back to his chair. He was given a dose of aspirin at home. Arrived in ED about 5 hours after onset of symptoms. Symptoms resolved by the time he came to ED, but had a brief episode of possible expressive aphasia in the ED. Upon further discussion, patient reports that he fell during the night about 1 week ago; cause of fall not apparent. He also describes a transient episode of diplopia a few days ago which occurred when he was looking over his shoulder. Admission Exam Per Admitting Provider Vital Signs (Past 24 Hours): Last Vital Signs Temp 36.6 C 07/27/18 16:46 Pulse 67 07/27/18 19:51 Resp 20 07/27/18 19:51 BP 118/73 07/27/18 19:51 Pulse Ox 97 07/27/18 19:51 Constitutional: WD/WN, vitals as above no acute distress Eyes: PERRL, conjunctivae normal, anicteric sclerae ENMT: external ear and nose normal, oropharynx normal Ears: + hearing im pairment Mouth: + dentures Neck: trachea midline, no thyromegaly Respiratory: normal respiratory effort, lungs clear to auscultation Cardiovascular: Rate/Rhythm: regular rate and regular rhythm (with occasional ectopy) Heart Sounds: no gallop, no murmur and no cardiac rub Vessels: + JVD, posterior tibial pulses present (diminished) and dorsalis pedis pulses present (diminished); no carotid bruit Extremities: normal capillary refill, + pedal edema and + edema (2+ pretibial bilat); no calf tenderness capillary refill toes 2 sec bilat Gastrointestinal (Abdomen): normal bowel sounds, soft, nontender, no hepatosplenomegaly (exam limited due to body habitus) Musculoskeletal: Head/Neck/Chest: neck supple Extremities: strength 5/5 throughout; no cyanosis and no clubbing Skin: no rashes, warm and dry Neurologic: PERRL, EOMI no facial palsy no dysarthria or aphasia able to repeat "no ifs, ands, or buts" with minimal difficulty motor upper and lower extremities 5/5 bilat patellar DTR's 1/2 bilat plantar reflexes downgoing bilat no significant difficulty with finger to nose or heel to daniels bilat Psychiatric: Orientation: alert and oriented x 3 Affect: euthymic affect Lymphatic: no cervical lymphadenopathy Principal Diagnosis POSSIBLE TRANSIENT ISCHEMIC ATTACK, IN THE SETTING OF 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 Discharge Exam Vital Signs (Past 24 Hours): Last Vital Signs Temp 36.5 C 07/31/18 07:51 Pulse 69 07/31/18 07:51 Resp 20 07/31/18 07:51 BP 133/77 07/31/18 07:51 Pulse Ox 97 07/31/18 07:51 Physical Exam: General- oriented x 2, not in distress, speaks in sentences with no effort or accessory muscle use Eyes- anicteric Neck- no JVD Lungs- clear breath sounds bilaterally, No crackles or wheezing Heart- normal rate, regular rhythm; no murmurs Abdomen- normal bowel sounds, nondistended, soft, nontender Extremities- no pretibial edema, no calf tenderness Positive bilateral pedal edema Neuro- alert, oriented x 3; no gross focal neurologic deficits Skin- warm & dry Discharge Data Allergies Allergy/AdvReac Type Severity Reaction Status Date / Time No Known Allergies Allergy Unknown Verified 07/27/18 18:27 Consultations 07/27/18 18:49 ED Decision to Admit Stat 07/27/18 20:42 Consult Case Management - Discharge Planning Routine Consult Neurology Routine 07/28/18 09:46 Consult Cardiology Routine Ordered Studies 07/27/18 16:56 CT head/brain wo con Stat CT head/brain wo con CLINICAL HISTORY: 87 years-old Male with Stroke evaluation . Acute strokelike symptoms TECHNIQUE: Multiple axial CT images of the head were obtained without contrast. A dose lowering technique was utilized adhering to the principles of ALARA. COMPARISON: CTA head and neck of same day. FINDINGS: No acute intracranial hemorrhage, midline shift, intracranial mass, hydrocephalus, territorial ischemia or abnormal extra-axial collection. Age- related involutional changes with ex vacuo ventriculomegaly. Cerebral vascular calcifications are noted. The calvarium is intact. The paranasal sinuses, mastoid air cells, and middle ear cavities are clear. IMPRESSION: No acute intracranial abnormality. 07/27/18 16:57 CT angio head w con Stat CT angio neck with con Stat CT angio neck with con, CT angio head w con CLINICAL HISTORY: 87 years-old Male with weak. Acute weakness COMPARISON STUDY: CT head of same day TECHNIQUE: Following the IV administration of 119 ml of Optiray 320, CT angiogram of the head and neck was performed from the aortic arch to the skull base. Images are reviewed in the axial, sagittal, and coronal planes. 3-D MIPS images are created and assessed. IV contrast was administered without complication. All measurements were calculated based on NASCET criteria. A dose lowering technique was utilized adhering to the principles of ALARA. CT DOSE: 1309.97 mGy.cm FINDINGS: Extensive mixed plaque formation about the thoracic aortic arch. Patency about the imaged bilateral subclavian arteries. Bilateral common carotid arteries are patent with moderate atheromatous plaque formation. Extensive mixed plaque formation about the bilateral carotid bulbs. This results in less than 50% luminal narrowing bilaterally. Tortuosity about the distal cervical segments of the bilateral internal carotid arteries without high-grade stenosis. Focal area of short segment dissection is noted about the petrous segment right ICA (image 331 series 4). This results in less than 50% luminal narrowing mild calcified plaque formation about the bilateral cavernous, clinoid and supraclinoid segments. Focal high-grade stenosis about the proximal portion of the left M1 segment on image 414 series 4 with high-grade stenosis at the origin of the left A1 segment on this same image. Additionally, there is high-grade luminal narrowing of the distal left M1 segment just proximal to the trifurcation. There is mild luminal narrowing noted about the midportion of the right M1 segment. The right A1 segment is widely patent. Vertebral arteries are codominant. Mild tortuosity about the vertebral arteries. Calcified plaque at the origin of the right vertebral artery results in less than 50% luminal narrowing. Multifocal mild luminal narrowing about the V4 segments of the bilateral vertebral arteries, likely secondary to underlying atheromatous plaque. Basilar artery is patent. Bilateral posterior cerebral arteries are widely patent. Cerebral venous sinuses appear patent. No pneumothorax. Calcified granuloma of the right upper lobe. There are a few indeterminate scattered solid nodules noted about the lung apices measuring up to 4 mm. Soft tissues appear unremarkable. No acute abnormality of the imaged intracranial structures. Multilevel degenerative changes of the spine. IMPRESSION: 1. 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 There is less than 50% luminal narrowing about the bilateral proximal internal carotid arteries. 2. Focal high-grade stenosis at the origin of the left M1 and A1 segments with additional focal area of high-grade stenosis about the distal left M1 segment ju st proximal to the trifurcation, likely secondary to underlying atheromatous plaque. 3. 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 4. Additional findings as above. The above report was generated using voice recognition software. It may contain grammatical, syntax or spelling errors. 07/28/18 11:27 CT head/brain wo con Stat CT SCAN OF THE BRAIN WITHOUT IV CONTRAST CLINICAL HISTORY: Strokelike symptoms. COMPARISON STUDY: CT of the brain dated 07/27/2018. TECHNIQUE: Unenhanced axial CT scan of the brain is performed from the vertex to the skull base. A dose lowering technique was utilized adhering to the principles of ALARA. CT DOSE: 773.57 mGy.cm FINDINGS: Brain parenchyma: There are age-related involutional changes noting mild subcortical and periventricular microangiopathic change. There is no hemorrhage, mass effect, or evidence of acute territorial ischemia by CT criteria. Bhatia- white matter differentiation is preserved. No extra-axial fluid collection is seen. Ventricles, sulci, cisterns: Prominent secondary to involutional change. Intracranial vasculature: There is atherosclerotic calcification of the cavernous carotid and vertebral arteries. Calvarium: Unremarkable. Sinuses and mastoids: The visualized paranasal sinuses are clear. The mastoid air cells are well pneumatized. Orbits: The bony orbits are grossly intact. A metallic foreign body is seen adjacent to the right orbit. IMPRESSION: There is no hemorrhage, mass effect, or evidence of acute territorial ischemia by CT criteria. Hospital Course (1) Stroke-like symptoms: POSSIBLE TIA HIGH GRADE STENOSIS MCA AND REMIGIO Per Dr. Sutton' notes: Reported dysarthria, expressive aphasia, RLE weakness this morning. Exact duration of symptoms uncertain, but apparently less than 1 hour. Presented to ED about 5 hours after onset of symptoms. Possible brief episode of recurrent aphasia in ED. Stroke alert called in ED. No acute findings on CT of head. CTA HEAD: extensive atherosclerosis of thoracic aorta and bilateral carotid bulbs less than 50% stenosis of bilateral ICA's focal high grade stenoses of M1 and origin of A1 focal age-indeterminate short segment dissection right ICA echo: ef 50% patient had intermittent episodes of dyarthria, right sided weakness on hospital day 2 placed on heparin drip times 3 days as per neurology service recommendations Does not recommend vascular intervention Neurologic symptoms gradually resolved Stable overall No gross neurologic deficits Blood pressure stable overall Patient declining physical therapy inpatient rehab or at home Discussed increased risks of falling injuries and patient and his are accepting of this Cleared for discharge today by neurology service as well Cleared for discharge by neurology service, recommend: Aspirin 81 mg p.o. daily Plavix 70 mg p.o. daily Lipitor 40 mg p.o. daily To prevent hypotension and promote adequate cerebral perfusion, metoprolol is been reduced to 12.5 mg p.o. daily and Lasix 40 mg p.o. daily Follow-up with primary care physician in 1 week Follow-up with neurology service in 2 weeks (2) Syncope: recurrent syncope occuring 1/2x/week, no prodrome Pacemaker interrogation to review arrhythmia history and rule out pacemaker malfunction. Check orthostatic vital signs. on Lasix 40mg and 60mg, Metoprolol succinate 25g po daily Discussed with cardiology To prevent hypotension and promote adequate cerebral perfusion, metoprolol has been reduced to 12.5 mg p.o. daily and Lasix 40 mg p.o. daily Monitor blood pressure as an outpatient (3) Chronic left ventricular systolic heart failure: Chronic left ventricular systolic heart failure with LVEF 35-40% per echo 2016. No SAMARA or ARB due to CKD. Diuretic management as noted above (4) Status post cardiac pacemaker procedure: Pacemaker interrogation Performed, unremarkable as per telesales specialist (5) Pulmonary nodules: Has prostate cancer with metastasis to the lungs seen on CT neck: No pneumothorax. Calcified granuloma of the right upper lobe. There are a few indeterminate scattered solid nodules noted about the lung apices measuring up to 4 mm. Soft tissues appear unremarkable. No acute abnormality of the imaged intracranial structures. Multilevel degenerative changes of the spine. -- further evaluation And Management as an outpatient (6) CKD (chronic kidney disease), stage III: Serum creatinine 1.36. Follow. 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 Ongoing management per Dr. Cameron. (8) DVT prophylaxis: SCDs, Heparin (9) Discharge planning issues: Disposition Discharge home today Follow-up with primary care physician as outlined in discharge instructions Follow-up with neurology in 2 weeks Follow-up with telesales specialist as scheduled Total Time Total Time Spent Total Time Spent (In Minutes): 45 minutes Discharge Plan Discharge Items Patient Disposition: Home - Self-Care Reason For Visit: STROKE SYMPTOMS Discharge Diagnosis: Possible transient ischemic attack Discharge Goals: Diagnostic testing Activity: As commented below Activity Comment: Always ambulate carefully, always use the walker, no heavy exertion Lifting: Wait until after follow-up appointment Exercise/Sports: Wait until after follow-up appointment Driving/Machine Use Comment: No driving Until reevaluated by primary care physician Non-emergency contact: Primary Care Provider Call non-emergency contact if: you have any medication questions and you have a fever Follow-up/Referrals: Ger Clement [Primary Care Provider] - Add Provider Instructions: FOLLOW UP WITH PRIMARY CARE PHYSICIAN DR. DEAL ON Saturday08/07/18 AT 10:45AM. (DR. CLEMENT IS NOT AVAILABLE FOR AN APPOINTMENT NEXT WEEK). FOLLOW UP WITH NEUROLOGIST DR. STEVE IN 2 WEEKS. PLEASE CALL [phone] FOR AN APPOINTMENT. FOLLOW UP WITH SEED PRODUCTION FIELD SUPERVISOR SCHEDULED. CALL PRIMARY CARE PHYSICIAN IMMEDIATELY IF WITH INCREASING SWELLING OF ARMS/LEGS, SHORTNESS OF BREATH. Risk Factors for Stroke: You can reduce your chances of stroke by working with your medical provider to adopt a healthy lifestyle. Some specific ways to lower your chance of stroke are: If you are a smoker, now is the time to stop smoking cigarettes If you are diabetic, improve the control of your blood sugars Avoid excessive amounts of alcohol Control high blood pressure Lose weight if you are overweight Be sure to lead an active lifestyle Eat a healthy diet low in salt, cholesterol and fat You should know about other risk factors for stroke that you are unable to control. These include: Age 55 years or older Male gender Certain racial groups: , or / Family History of Stroke, Mini stroke or Heart Attack Sickle Cell Disease Follow Up: It is important for you to keep your follow up appointments with your medical provider. . Who to Call and When: Medical Emergencies: Call 911 immediately if you experience any of the following warning signs and symptoms of Stroke: Sudden numbness or weakness of the face, arm or leg, especially on one side of the body Sudden confusion, trouble speaking or understanding Sudden trouble seeing in one or both eyes Sudden trouble walking, dizziness, loss of balance or coordination Sudden severe headache with no cause Do not delay calling 911 if you experience any warning signs or symptoms of a stroke. Delay in seeking medical attention may affect what treatments can be given to you. . Prescriptions: New furosemide 40 mg Tablet 40 mg PO QAM 30 Days Qty: 30 RF: 2 atorvastatin 40 mg Tablet 40 mg PO QAM 30 Days Qty: 30 RF: 2 clopidogrel 75 mg Tablet 75 mg PO QAM 30 Days Qty: 30 RF: 2 aspirin [Ecotrin Low Strength] 81 mg Tablet,Delayed Release (Dr/Ec) 81 mg PO QAM 30 Days Qty: 30 RF: 2 metoprolol succinate 25 mg Tablet Extended Release 24 Hr 12.5 mg PO DAILY 30 Days Qty: 15 RF: 2 Continued polyethylene glycol 3350 [Miralax] 17 gram Powder In Packet 17 g PO DAILY PRN (Reason: Constipation) RF: 0 potassium chloride 10 mEq Tablet Extended Release 10 meq PO DAILY RF: 0 tramadol 50 mg Tablet 50 mg PO Q8 PRN (Reason: Pain) RF: 0 spironolactone 25 mg Tablet 12.5 mg PO DAILY RF: 0 cholecalciferol (vitamin D3) [Vitamin D3] 5,000 unit Tablet 5,000 unit PO DAILY RF: 0 Xtandi 40 mg Capsule 160 mg PO DAILY RF: 0 magnesium oxide 400 mg magnesium Tablet 400 mg PO DAILY RF: 0 Dandelion Root 250 mg PO 2XWK RF: 0 Discontinued furosemide [Lasix] 40 mg Tablet 60 mg PO UD RF: 0 furosemide [Lasix] 40 mg Tablet 40 mg PO UD RF: 0 metoprolol succinate 25 mg Tablet Extended Release 24 Hr 25 mg PO DAILY RF: 0 Stand-Alone Forms: [facility] Discharge Orders: Discharge Order (Routine); Ordered 07/31/18 Ordered By: Garcia Schulte Admission Data Admit Date/Time: 07/27/18 19:19 Attending Provider: Garcia Schulte Admit Provider: Kojo Sutton Primary Care Provider: Ger Clement Other Providers: Kojo Sutton ; Ariana Steve ; Teddy Washington ; Nain William ; Samuel Padilla ; Yoshi Glass ; Lul Slaughter ; Wes Jeffries ; Nieves Pang ; Ariana Gallego Service: Telemetry
--- NOTE | 2018-07-31 13:52 | Pharmacy Report ---
Pharmacist Stroke Counseling - Date of Service July 31, 2018 - Scope: Pharmacy has been consulted to provide medication discharge counseling for this patient admitted with likely [transient ischemic attack] as per the Pharmacist Discharge Counseling for Stroke Patients Protocol. - Medications on Discharge: Home Medications Medication Instructions Recorded Confirmed Dandelion Root 250 mg PO 2XWK 07/27/18 07/27/18 Xtandi 160 mg PO DAILY 07/27/18 07/27/18 cholecalciferol (vitamin D3) 5,000 unit PO DAILY 07/27/18 07/27/18 [Vitamin D3] magnesium oxide 400 mg PO DAILY 07/27/18 07/27/18 polyethylene glycol 3350 [Miralax] 17 g PO DAILY PRN 07/27/18 07/27/18 potassium chloride 10 meq PO DAILY 07/27/18 07/27/18 spironolactone 12.5 mg PO DAILY 07/27/18 07/27/18 tramadol 50 mg PO Q8 PRN 07/27/18 07/27/18 New Rx's Medication Instructions Recorded aspirin [Ecotrin Low Strength] 81 mg PO QAM 30 Days #30 tab 07/31/18 atorvastatin 40 mg PO QAM 30 Days #30 tab 07/31/18 clopidogrel 75 mg PO QAM 30 Days #30 tab 07/31/18 furosemide 40 mg PO QAM 30 Days #30 tab 07/31/18 metoprolol succinate 12.5 mg PO DAILY 30 Days #15 tab 07/31/18 - Action: The above medications, specifically ones for stroke treatment/prophylaxis, have been reviewed in detail with the patient and/or patient financial sales representative(s) prior to discharge. This includes indication, common adverse reactions, drug interactions, and medication administration. Medication counseling has been employed using the teach-back method to ensure understanding. - Outcome: The patient and/or patient financial sales representative(s) have demonstrated understanding of the medications. Please note, they are aware that the pharmacist will call them within 72 hours post-discharge to confirm that the appropriate medications are being taken and answer any further medication related questions the patient might have at that time. Contact information Individual to be contacted: Phuong Relationship to patient (if applicable): caregiver Phone number: [phone] Best time to call: anytime Additional comments: Patient very friendly to talk with today. Accompanied with caregiver (Phuong) who helps with managing his medications/fills pill box for him. Reviewed all new medications with them, along with side effects to watch out for. Talked about interaction between Plavix and Omeprazole. He states that he sometimes will take Zantac for his stomach, which I stated was okay with the Plavix. Told him if he were to have questions about OTC medications to always double check with pharmacist. Aware that we will be following up next 48 hrs with phone call. States that he has appt with oncologist tomorrow to determine if patient is to remain on Xtandi. States that this medication makes him gain weight/fluid. Recommended that he keep track of his weight and that could help doctor with furosemide dosing (since there have been many recent adjustments to that med ication). Patient plans on using his blood pressure machine at home to keep track of his blood pressure more often as well. Per neurology patient to be on plavix and aspirin possibly indefinitely, but will follow up with him at his next visit. No other concerns today on interview. Thank you for allowing pharmacy to be involved in the care of this patient. Please call [phone] or [phone] with any additional questions
--- NOTE | 2018-08-04 10:17 | Pharmacy Report ---
Pharmacist Post D/C Phone Note - Phone Note: Date of phone call: August 04, 2018. (call also placed on 08/01) The patient and/or patient advertising sales representative(s) (Phuong) were unable to be reached for a follow-up phone call within the 72 hour time frame. Discharge counseling pharmacist contact information has already been provided to the patient should questions arise. Thank you for allowing us to be involved in the care of this patient. - Home Medications: Home Medications Medication Instructions Recorded Confirmed Dandelion Root 250 mg PO 2XWK 07/27/18 07/27/18 Xtandi 160 mg PO DAILY 07/27/18 07/27/18 cholecalciferol (vitamin D3) 5,000 unit PO DAILY 07/27/18 07/27/18 [Vitamin D3] magnesium oxide 400 mg PO DAILY 07/27/18 07/27/18 polyethylene glycol 3350 [Miralax] 17 g PO DAILY PRN 07/27/18 07/27/18 potassium chloride 10 meq PO DAILY 07/27/18 07/27/18 spironolactone 12.5 mg PO DAILY 07/27/18 07/27/18 tramadol 50 mg PO Q8 PRN 07/27/18 07/27/18 New Rx's Medication Instructions Recorded aspirin [Ecotrin Low Strength] 81 mg PO QAM 30 Days #30 tab 07/31/18 atorvastatin 40 mg PO QAM 30 Days #30 tab 07/31/18 clopidogrel 75 mg PO QAM 30 Days #30 tab 07/31/18 furosemide 40 mg PO QAM 30 Days #30 tab 07/31/18 metoprolol succinate 12.5 mg PO DAILY 30 Days #15 tab 07/31/18
== END 2018-07-31 14:06 | disposition home or self-care (01) | DRG 68 ==
LOC: ED 16:41 → 2E 19:19

== ENCOUNTER 2020-07-19 11:28 | Inpatient (IN) ==
--- NOTE | 2020-07-19 11:39 | Emergency Department Note ---
Impression & Plan Acute GI bleeding, Acute dehydration, Prostate cancer metastatic to bone ED Provider Note NAME: TAYLER Arredondo WEIGHT AGE: 89 SEX: M : 1930 ARRIVES VIA: Ambulance INFORMANT: Patient, ED PROVIDER(S): Iker Torrez MD Chief Complaint: GI bleed HPI: Patient reportedly developed some GI bleeding beginning last evening. The patient is on some blood thinning medications. The patient does have a known history of metastatic prostate cancer with bony mets. The patient does have chronic pain. The patient reportedly had a syncopal episode last evening while trying to ambulate to the bed. The patient did not have any reported head strike. No fevers or chills. The patient has had some dry heaves yesterday but no vomiting. The patient has had some bloody stools since yesterday. No fevers or chills or chest pains. The patient does have chronic abdominal pain given his history of metastatic prostate cancer. The patient is already had chemo and radiation therapy and currently not in any active treatment plan. They were referred here after further discussion to discuss IV fluid hydration blood counts and the possibility of a transfusion. The patient also has a history of some mini strokes which have left his right side weaker than the left. The patient's stool has been dark and tarry in nature. The patient was seen back in May due to concern for weakness and a change in mentation. Patient at that time had a white count of 13 with a hemoglobin of 11 hematocrit of 35 and a platelet count of 242. Patient did have mildly low sodium at 138 with a BUN and creatinine of 23 and 1.4. Patient did have elevations in T bili AST and alk phos. Plan was not detectable in the patient's urine did not have evidence of infection. The patient had a negative flu Covid and RSV. ROS: See HPI for pertinent positives and negatives. A total of 10 systems were reviewed and otherwise negative. Past medical history: See below Surgical history: See below Social history: See below Physical Exam: GENERAL: NAD, non-toxic. EYE EXAM: Normal conjunctiva. PERRL, no anisocoria and EOM's grossly intact w/o pain OROPHARYNX: Dry mucus membranes. False teeth in place. Chest: Pacemaker present. NECK: Supple, no nuchal rigidity, no adenopathy, non-tender. No signs of meningismus. LUNGS: Clear to auscultation. Normal chest wall mechanics. HEART: NSR, no MRG. ABDOMEN: Abdomen soft, non-tender, normo-active bowel sounds, no masses, no rebound or guarding. BACK: No CVA TTP. SKIN: No rashes and no bruising. UPPER EXTREMITIES: Upper extremities are grossly normal. LOWER EXTREMITIES: Grossly normal, no edema. NEURO EXAM: A&O x3, cranial nerves II-XII grossly intact, normal speech, moves all 4 extremities with generalized weakness throughout. Differential diagnoses: Diverticulosis, AVM, coagulopathy, colitis, inflammatory bowel disease, malignancy, Debbie-Chapin tear, esophagitis, peptic ulcer disease, variceal bleed, gastritis, epistaxis, fissure, hemorrhoids, as well as other pathologies. Course: Patient was seen and evaluated the bedside. Full history physical exam was performed. EKG: Indication: Syncope Sinus with first-degree AV block, rate of 78, prolonged IL and wide QRS, bundle branch block pattern. Left axis deviation. Imaging Studies: Radiology results as stated below per my review in the radiologist's interpretation: CT SCAN OF THE BRAIN WITHOUT IV CONTRAST CLINICAL HISTORY: Syncope. Fall. COMPARISON STUDY: CT of the brain dated 06/23/2020. TECHNIQUE: Unenhanced axial CT scan of the brain is performed from the vertex to the skull base. A dose lowering technique was utilized adhering to the principles of ALARA. FINDINGS: Brain parenchyma: There are age-related involutional changes noting mild to moderate subcortical and periventricular microangiopathic change. There is no hemorrhage, mass effect, or evidence of acute territorial ischemia by CT criteri a. Bhatia-white matter differentiation is preserved. No extra-axial fluid collection is seen. Ventricles, sulci, cisterns: Prominent secondary to involutional change. Intracranial vasculature: There is atherosclerotic calcification of the cavernous carotid and vertebral arteries. Calvarium: The skeletal structures are osteopenic. There is no depressed calvarial fracture. Sinuses and mastoids: The visualized paranasal sinuses are clear. The mastoid air cells are well pneumatized. Orbits: The bony orbits are grossly intact. IMPRESSION: There is no hemorrhage, mass effect, or evidence of acute territorial ischemia by CT criteria. ACT 112: Negative or not required by law. Electronically signed by: Naseem Agrawal M.D. 07/19/2020 1:16 PM Dictated: 07/19/20 1303 Transcribed: 07/19/[address] abd pelvis IV con only CLINICAL HISTORY: Abdominal pain. Metastatic prostate carcinoma. Trauma. LUNG CARCINOMA COMPARISON STUDY: 06/23/2020 TECHNIQUE: The patient was scanned in a dynamic helical fashion during intravenous administration of 94 cc of Optiray 320. A dose lowering technique was utilized adhering to the principles of ALARA. CT DOSE: 1340.35 mGy.cm FINDINGS: Lower chest: There are mild basilar atelectatic changes present. There is no pericardial effusion. There are coronary artery calcifications. There is a central venous pacemaker. There is redemonstration of right middle lobe perifissural nodules Liver: There are several hypodense hepatic lesions, the largest of which is located within the right lobe beneath the hepatic dome measuring 11 mm. Metastatic disease cannot be excluded. Gallbladder: Surgically absent Spleen: Normal in size and attenuation. Pancreas: Fatty atrophy Adrenal glands: There is a 47 mm right adrenal mass. There is an 11.2 cm left adrenal mass Kidneys: In addition to small bilateral renal cysts, there are 2 indeterminate lower pole left renal lesions measuring 13 mm and 12 mm respectively. Bowel: There are no transition zones to indicate bowel obstruction. There is moderate rectosigmoid wall thickening with infiltration of the pericolonic fat. The findings are indicative of a colitis. Peritoneum: There is no intraperitoneal free air or abdominal ascites. Vasculature: There are aortoiliac atheromatous changes. There is mild ectasia of the infrarenal abdominal aorta which measures 27 mm. 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 Adenopathy: None. Pelvic viscera: There is bladder wall thickening. There is an indwelling Pack catheter. There is a large destructive sacral mass with soft tissue component measuring 85 x 70 x 36 mm. Skeletal structures: There is evidence for a multifocal skeletal metastasis. There is bilateral gynecomastia. IMPRESSION: 1. Multifocal blastic osseous metastasis 2. Large destructive sacral mass with soft tissue component measuring 85 x 70 x 36 mm. 3. Bilateral adrenal masses consistent with metastatic disease 4. Small hypodense hepatic lesions which are viewed as suspicious for metastatic disease 5. Prostatomegaly and bladder wall thickening 6. Interval development of moderate rectosigmoid wall thickening with infiltration of the pericolonic fat. The findings are indicative of a colitis. ACT 112: Negative or not required by law. Electronically signed by: Ervin Barth M.D. 07/19/2020 1:25 PM Dictated: 07/19/20 1312 Transcribed: 07/19/20 1312 Cardiac monitoring: An order was placed for continuous cardiac monitoring. The monitor shows a rate of 79 with [] rhythm. MDM: Patient did present with syncope GI bleed and abdominal pain present on exam. Blood work is obtained along with a CT of the head CT of the abdomen pelvis. Patient is DNR/DNI. Patient was typed and screened. The patient is amenable to blood products. Patient CT head negative. CT of the abdomen pelvis does show multiple findings consistent with metastatic disease. The patient does have some possible colitis as well. Patient white count of 13 with a hemoglobin of 10. Last hemoglobin of 11. Platelet count is normal. Coags negative. The patient does have an elevated BUN/creatinine ratio. PPI bolus and drip ordered and the patient was given small amount of IV fluids. I did have a prolonged conversation with the patient's discussing the treatment plan which included but was not limited to transfusion, endoscopy, colonoscopy, as well as supportive care. The patient already had been receiving his PPI bolus and drip. I did discuss that it would be up to the discretion of the ground water pump installer about whether or not to perform any additional procedures and would be in conjunction with the hospitalist. Discussed that the CT scan did not show any obvious colonic or gastric mass but the patient does have some rectosigmoid thickening and colitis which also could be contributory. Patient was consented for blood in the event that he needed it. I did speak on-call hospitalist Dr. Gómez and the patient was admitted to the medicine service. Past Med/Surg History Medical History (Updated 07/19/20 @ 15:57 by Luciana Gómez, ) Bone metastasis Chronic left ventricular systolic heart failure LVEF 35-40% per echo 09/11/15 CKD (chronic kidney disease), stage III History of nephrolithiasis Prostate CA (~2000) Mets to bone and lung. "Adenocarcinoma the prostate Biopsy stage T2c [place] grade 4+4 and 4+ 05/29/2000 Status post TURP October 2007 Trev score 4+4 in 60% of the specimen Status post orchiectomy 2008 due to bone metastasis Status post radiation therapy to the sacrum 05/14/2011 received 3900 cGy Status post completion of radiation therapy to the thoracic/lumbar spine completed 06/17/2014 received 3750 cGy Ongoing treatment with Xtandi" Pulmonary nodules metastatic prostate Ca SSS (sick sinus syndrome) Surgical History Status post cardiac pacemaker procedure Status post cholecystectomy Status post hernia repair Status post orchiectomy Family History Brother Prostate cancer Uncle Prostate cancer Brother Diabetes Mother Coronary heart disease Other Family history non-contributory Social History Smoking Status: Former smoker Tobacco Type: Cigarettes Hx Alcohol Use: No Hx Substance Use: No Preferred Language: Spanish Communication Ability: Impaired Cellophane Tester Required: No Beliefs That Will Affect Care: None Current Living Situation: Spouse current occupational status: retired current occupation: retired [employer] Other Information That Helps Us Care for You: No Feels Safe at Home: Yes Safety Concerns: Feels Safe At This Time Assistive Devices: Denture - Upper, Denture - Lower, Glasses and Walker Allergies Allergies Allergy/AdvReac Type Severity Reaction Status Date / Time No Known Allergies Allergy Unknown Verified 07/19/20 13:37 Home Meds Home Medications Medication Instructions Recorded Confirmed cholecalciferol (vitamin D3) 5,000 unit PO QAM 07/27/18 07/19/20 [Vitamin D3] magnesium oxide 400 mg PO QAM 07/27/18 07/19/20 polyethylene glycol 3350 [Miralax] 17 g PO DAILY PRN 07/27/18 07/19/20 potassium chloride 0 meq PO QAM 07/27/18 07/19/20 spironolactone 12.5 mg PO QAM 07/27/18 07/19/20 atorvastatin 40 mg PO QAM 06/23/20 07/19/20 clopidogrel 75 mg PO QAM 06/23/20 07/19/20 furosemide 20 mg PO QAM 06/23/20 07/19/20 metoprolol succinate 12.5 mg PO QAM 06/23/20 07/19/20 Previous Rx's Medication Instructions Recorded oxycodone 5 mg PO Q8H PRN #12 tab 06/23/20 tramadol 50 mg PO Q8H PRN #20 tab 06/23/20 Results & Data (ED) Vital Signs Vital Signs - 24 hr 07/19/20 11:34 07/19/20 11:41 07/19/20 11:42 Temperature 36.6 C Temperature Source Oral Pulse Rate 77 79 79 Pulse Rate [Left Finger] Pulse Rate from SpO2 Sensor Respiratory Rate 16 19 19 Respiratory Effort / Characteristics Non-Labored Spontaneous Respiratory Depth Normal Respiratory Pattern Blood Pressure 108/58 L 108/58 L Blood Pressure [Left Arm] Blood Pressure Mean 74 74 Blood Pressure Mean [Left Arm] Blood Pressure Position Lying Blood Pressure Position [Left Arm] Pulse Oximetry Oxygen Delivery Method Room Air Room Air Room Air Sepsis Recent Fever Within 48 Hours No Sepsis New/Unexplained Change in Mental Status N/A Sepsis Action Taken by Nursing No Action Required 07/19/20 11:50 07/19/20 12:00 07/19/20 12:02 Temperature Temperature Source Pulse Rate 76 69 77 Pulse Rate [Left Finger] Pulse Rate from SpO2 Sensor 76 74 Respiratory Rate 20 21 Respiratory Effort / Characteristics Respiratory Depth Respiratory Pattern Blood Pressure 106/54 L 106/57 L Blood Pressure [Left Arm] Blood Pressure Mean 71 73 Blood Pressure Mean [Left Arm] Blood Pressure Position Blood Pressure Position [Left Arm] Pulse Oximetry 98 96 Oxygen Delivery Method Room Air Room Air Room Air Sepsis Recent Fever Within 48 Hours Sepsis New/Unexplained Change in Mental Status Sepsis Action Taken by Nursing 07/19/20 12:10 07/19/20 12:20 07/19/20 12:30 Temperature Temperature Source Pulse Rate 75 71 74 Pulse Rate [Left Finger] Pulse Rate from SpO2 Sensor 71 74 Respiratory Rate 21 19 17 Respiratory Effort / Characteristics Respiratory Depth Respiratory Pattern Blood Pressure 103/62 Blood Pressure [Left Arm] Blood Pressure Mean 75 Blood Pressure Mean [Left Arm] Blood Pressure Position Blood Pressure Position [Left Arm] Pulse Oximetry 97 96 Oxygen Delivery Method Room Air Room Air Room Air Sepsis Recent Fever Within 48 Hours Sepsis New/Unexplained Change in Mental Status Sepsis Action Taken by Nursing 07/19/20 12:40 07/19/20 13:01 07/19/20 13:10 Temperature Temperature Source Pulse Rate 72 73 72 Pulse Rate [Left Finger] Pulse Rate from SpO2 Sensor 71 74 72 Respiratory Rate 20 16 17 Respiratory Effort / Characteristics Respiratory Depth Respiratory Pattern Blood Pressure 118/56 L Blood Pressure [Left Arm] Blood Pressure Mean 76 Blood Pressure Mean [Left Arm] Blood Pressure Position Blood Pressure Position [Left Arm] Pulse Oximetry 97 97 96 Oxygen Delivery Method Room Air Room Air Room Air Sepsis Recent Fever Within 48 Hours Sepsis New/Unexplained Change in Mental Status Sepsis Action Taken by Nursing 07/19/20 13:20 07/19/20 13:30 07/19/20 13:40 Temperature Temperature Source Pulse Rate 69 73 69 Pulse Rate [Left Finger] Pulse Rate from SpO2 Sensor 69 73 69 Respiratory Rate 17 17 16 Respiratory Effort / Characteristics Respiratory Depth Respiratory Pattern Blood Pressure 113/59 L Blood Pressure [Left Arm] Blood Pressure Mean 77 Blood Pressure Mean [Left Arm] Blood Pressure Position Blood Pressure Position [Left Arm] Pulse Oximetry 97 97 98 Oxygen Delivery Method Room Air Room Air Room Air Sepsis Recent Fever Within 48 Hours Sepsis New/Unexplained Change in Mental Status Sepsis Action Taken by Nursing 07/19/20 13:50 07/19/20 14:00 07/19/20 14:10 Temperature Temperature Source Pulse Rate 82 73 67 Pulse Rate [Left Finger] Pulse Rate from SpO2 Sensor 73 72 67 Respiratory Rate 20 17 17 Respiratory Effort / Characteristics Respiratory Depth Respiratory Pattern Blood Pressure 100/54 L Blood Pressure [Left Arm] Blood Pressure Mean 69 Blood Pressure Mean [Left Arm] Blood Pressure Position Blood Pressure Position [Left Arm] Pulse Oximetry 99 97 97 Oxygen Delivery Method Room Air Room Air Room Air Sepsis Recent Fever Within 48 Hours Sepsis New/Unexplained Change in Mental Status Sepsis Action Taken by Nursing 07/19/20 14:20 07/19/20 14:30 07/19/20 14:40 Temperature Temperature Source Pulse Rate 68 73 72 Pulse Rate [Left Finger] Pulse Rate from SpO2 Sensor 68 72 72 Respiratory Rate 17 18 20 Respiratory Effort / Characteristics Respiratory Depth Respiratory Pattern Blood Pressure 105/58 L Blood Pressure [Left Arm] Blood Pressure Mean 73 Blood Pressure Mean [Left Arm] Blood Pressure Position Blood Pressure Position [Left Arm] Pulse Oximetry 96 96 98 Oxygen Delivery Method Room Air Room Air Room Air Sepsis Recent Fever Within 48 Hours Sepsis New/Unexplained Change in Mental Status Sepsis Action Taken by Nursing 07/19/20 14:50 07/19/20 15:00 07/19/20 15:10 Temperature Temperature Source Pulse Rate 69 73 74 Pulse Rate [Left Finger] Pulse Rate from SpO2 Sensor 70 75 74 Respiratory Rate 19 18 19 Respiratory Effort / Characteristics Respiratory Depth Respiratory Pattern Blood Pressure 119/58 L Blood Pressure [Left Arm] Blood Pressure Mean 78 Blood Pressure Mean [Left Arm] Blood Pressure Position Blood Pressure Position [Left Arm] Pulse Oximetry 97 96 96 Oxygen Delivery Method Room Air Room Air Room Air Sepsis Recent Fever Within 48 Hours Sepsis New/Unexplained Change in Mental Status Sepsis Action Taken by Nursing 07/19/20 15:20 07/19/20 15:30 07/19/20 15:40 Temperature Temperature Source Pulse Rate 75 72 71 Pulse Rate [Left Finger] Pulse Rate from SpO2 Sensor 71 72 71 Respiratory Rate 20 19 20 Respiratory Effort / Characteristics Respiratory Depth Respiratory Pattern Blood Pressure 102/57 L Blood Pressure [Left Arm] Blood Pressure Mean 72 Blood Pressure Mean [Left Arm] Blood Pressure Position Blood Pressure Position [Left Arm] Pulse Oximetry 97 98 98 Oxygen Delivery Method Room Air Room Air Room Air Sepsis Recent Fever Within 48 Hours Sepsis New/Unexplained Change in Mental Status Sepsis Action Taken by Nursing 07/19/20 15:50 07/19/20 15:55 07/19/20 15:56 Temperature 36.4 C L Temperature Source Oral Pulse Rate 72 72 Pulse Rate [Left Finger] 72 Pulse Rate from SpO2 Sensor 71 70 Respiratory Rate 20 19 18 Respiratory Effort / Characteristics Non-Labored Spontaneous Respiratory Depth Normal Respiratory Pattern Regular Blood Pressure 99/57 L Blood Pressure [Left Arm] 99/57 L Blood Pressure Mean 71 Blood Pressure Mean [Left Arm] 71 Blood Pressure Position Blood Pressure Position [Left Arm] Lying Pulse Oximetry 100 99 99 Oxygen Delivery Method Room Air Room Air Room Air Sepsis Recent Fever Within 48 Hours Sepsis New/Unexplained Change in Mental Status Sepsis Action Taken by Nursing 07/19/20 16:00 07/19/20 16:10 07/19/20 16:20 Temperature Temperature Source Pulse Rate 72 72 70 Pulse Rate [Left Finger] Pulse Rate from SpO2 Sensor 66 72 71 Respiratory Rate 19 23 15 Respiratory Effort / Characteristics Respiratory Depth Respiratory Pattern Blood Pressure 104/58 L Blood Pressure [Left Arm] Blood Pressure Mean 73 Blood Pressure Mean [Left Arm] Blood Pressure Position Blood Pressure Position [Left Arm] Pulse Oximetry 99 98 98 Oxygen Delivery Method Room Air Room Air Room Air Sepsis Recent Fever Within 48 Hours Sepsis New/Unexplained Change in Mental Status Sepsis Action Taken by Usp Medications Current Medication List: was personally reviewed by me Laboratory Data Attestation: I reviewed the patient's lab results. Result diagrams: 07/19/20 12:03 07/19/20 12:03 Lab Results 07/19/20 07/19/2007/19/21 Range/Units 12:03 12:03 12:03 WBC 13.18 H (4.8-10.8) K/uL RBC 3.68 L (4.7-6.1) M/uL Hgb 10.2 L (14.0-18.0) g/dL Hct 30.8 L (42-52) % MCV 83.7 (80-100) fL MCH 27.7 (25-34) pg MCHC 33.1 (32-36) g/dL RDW Std Deviation 58.1 H (36.4-46.3) fL RDW Coeff of Carlos A 19.3 H (11.5-14.5) % Plt Count 282 (130-400) K/uL MPV 8.6 (7.4-10.4) fL Immature Gran % (Auto) 0.3 % Neut % (Auto) 85.7 % Lymph % (Auto) 7.0 % [place] % (Auto) 6.8 % Eos % (Auto) 0.1 % Baso % (Auto) 0.1 % Neut # (Auto) 11.30 H (1.4-6.5) K/uL Lymph # (Auto) 0.92 L (1.2-3.4) K/uL [place] # (Auto) 0.90 H (0.11-0.59) K/uL Eos # (Auto) 0.01 (0-0.5) K/uL Baso # (Auto) 0.01 (0-0.2) K/uL Immature Gran # (Auto) 0.04 H (0.00-0.02) K/uL PT 11.2 (9.0-12.0) Seconds INR 1.1 (0.9-1.1) APTT 24.7 (21.0-31.0) Seconds PTT Ratio 0.9 Sodium (136-145) mmol/L Potassium (3.5-5.1) mmol/L Chloride (98-107) mmol/L Carbon Dioxide (21-32) mmol/L Anion Gap (3-11) BUN (7-18) mg/dl Creatinine (0.6-1.4) mg/dl Est Cr Clr Drug Dosing ml/min Est GFR ( Amer) Est GFR (Non-Af Amer) BUN/Creatinine Ratio (10-20) Glucose (70-99) mg/dl Calcium (8.5-10.1) mg/dl Total Bilirubin (0.2-1) mg/dl AST (15-37) U/L ALT (12-78) U/L Alkaline Phosphatase (45-117) U/L Total Protein (6.4-8.2) gm/dl Albumin (3.4-5.0) gm/dl Globulin (2.5-4.0) gm/dl Albumin/Globulin Ratio (0.9-2) Lipase (73-393) U/L COVID-19 Eval Order SARS-CoV-2, RNA, NAAT (NEGATIVE) Blood Type A Positive Antibody Screen NEGATIVE 07/19/20 07/19/20 07/19/20 Range/Units 12:03 15:01 15:01 WBC (4.8-10.8) K/uL RBC (4.7-6.1) M/uL Hgb (14.0-18.0) g/dL Hct (42-52) % MCV (80-100) fL MCH (25-34) pg MCHC (32-36) g/dL RDW Std Deviation (36.4-46.3) fL RDW Coeff of Carlos A (11.5-14.5) % Plt Count (130-400) K/uL MPV (7.4-10.4) fL Immature Gran % (Auto) % Neut % (Auto) % Lymph % (Auto) % [place] % (Auto) % Eos % (Auto) % Baso % (Auto) % Neut # (Auto) (1.4-6.5) K/uL Lymph # (Auto) (1.2-3.4) K/uL [place] # (Auto) (0.11-0.59) K/uL Eos # (Auto) (0-0.5) K/uL Baso # (Auto) (0-0.2) K/uL Immature Gran # (Auto) (0.00-0.02) K/uL PT (9.0-12.0) Seconds INR (0.9-1.1) APTT (21.0-31.0) Seconds PTT Ratio Sodium 135 L (136-145) mmol/L Potassium 4.1 (3.5-5.1) mmol/L Chloride 101 (98-107) mmol/L Carbon Dioxide 26 (21-32) mmol/L Anion Gap 8.0 (3-11) BUN 43 H (7-18) mg/dl Creatinine 1.11 (0.6-1.4) mg/dl Est Cr Clr Drug Dosing 45.1 ml/min Est GFR ( Amer) 67.9 Est GFR (Non-Af Amer) 58.6 BUN/Creatinine Ratio 38.5 H (10-20) Glucose 135 H (70-99) mg/dl Calcium 9.4 (8.5-10.1) mg/dl Total Bilirubin 1.0 (0.2-1) mg/dl AST 75 H (15-37) U/L ALT 18 (12-78) U/L Alkaline Phosphatase 291 H (45-117) U/L Total Protein 6.7 (6.4-8.2) gm/dl Albumin 2.7 L (3.4-5.0) gm/dl Globulin 4.0 (2.5-4.0) gm/dl Albumin/Globulin Ratio 0.7 L (0.9-2) Lipase 46 L (73-393) U/L COVID-19 Eval [facility] SARS-CoV-2, RNA, NAAT NEGATIVE (NEGATIVE) Blood Type Antibody Screen Administered Medications Pantoprazole Sodium 40 mg/ (Dextrose) 100 mls @ 20 mls/hr IV Q5H NELSON Stop: 08/18/20 13:18 Last Admin: 07/19/20 13:47 Dose: 8 mg/hr, 20 mls/hr Documented by: [id number] Discontinued Medications Sodium Chloride (Nss 1000ml) 500 mls @ 999 mls/hr IV .Q31M ONE Stop: 07/19/20 12:21 Last Infusion: 07/19/20 12:58 Dose: 0 mls/hr Documented by: [id number] Admin: 07/19/20 12:23 Dose: 999 mls/hr Documented by: [id number] Pantoprazole Sodium (Protonix Bolus/Drip) 0 mls @ 1 mls/hr IV ONE STA Stop: 07/19/20 13:04 Last Infusion: 07/19/20 13:55 Dose: 0 mls/hr Documented by: [id number] Admin: 07/19/20 13:47 Dose: 1 mls/hr Documented by: [id number] Pantoprazole Sodium 80 mg/ (Dextrose) 120 mls @ 400 mls/hr IV NOW ONE Stop: 07/19/20 13:20 Last Infusion: 07/19/20 13:55 Dose: 0 mls/hr Documented by: [id number] Admin: 07/19/20 13:26 Dose: 400 mls/hr Documented by: [id number] Ioversol (Ioversol 100ml) 94 ml IV ONCE ONE Stop: 07/19/20 12:54 Last Admin: 07/19/20 12:54 Dose: 94 ml Documented by: [id number] Discharge Plan Visit Data Chief Complaint: GI Bleed ED Provider: Iker Torrez Discharge Problem: Acute GI bleeding, Acute dehydration, Prostate cancer metastatic to bone Forms Stand Alone Forms: [facility] Prescriptions Prescriptions: No Action furosemide 40 mg tablet 20 mg PO QAM RF: 0 atorvastatin 40 mg tablet 40 mg PO QAM RF: 0 clopidogrel 75 mg tablet 75 mg PO QAM RF: 0 metoprolol succinate 25 mg tablet extended release 24 hr 12.5 mg PO QAM RF: 0 tramadol 50 mg tablet 50 mg PO Q8H PRN (Reason: pain) Qty: 20 RF: 0 oxycodone 5 mg tablet 5 mg PO Q8H PRN (Reason: pain) Qty: 12 RF: 0 polyethylene glycol 3350 [Miralax] 17 gram Powder In Packet 17 g PO DAILY PRN (Reason: Constipation) RF: 0 potassium chloride 10 mEq Tablet Extended Release 0 meq PO QAM RF: 0 spironolactone 25 mg Tablet 12.5 mg PO QAM RF: 0 cholecalciferol (vitamin D3) [Vitamin D3] 5,000 unit Tablet 5,000 unit PO QAM RF: 0 magnesium oxide 400 mg magnesium Tablet 400 mg PO QAM RF: 0
[2020-07-19] MEDS ORDERED: SODIUM CHLORIDE 0.9% 1000ML 500 ML IV ONE (11:51)
[2020-07-19 12:15] LABS: Basophils # (auto) 0.01 K/uL (0-0.2); Basophils % (auto) 0.1 %; Eosinophils # (auto) 0.01 K/uL (0-0.5); Eosinophils % (auto) 0.1 %; Hematocrit (blood only) 30.8 % (42-52); Hemoglobin 10.2 g/dL (14.0-18.0); Immature Granulocytes # (auto) 0.04 K/uL (0.00-0.02); Immature Granulocytes % (auto) 0.3 %; Lymphocytes # (auto) 0.92 K/uL (1.2-3.4); Mean Corpuscular Hemoglobin 27.7 pg (25-34); Mean Corpuscular Hgb Conc 33.1 g/dL (32-36); Mean Corpuscular Volume 83.7 fL (80-100); Mean Platelet Volume 8.6 fL (7.4-10.4); Monocytes % (auto) 6.8 %; Neutrophils % (auto) 85.7 %; Platelet Count 282 K/uL (130-400); RDW Coefficient of Variation 19.3 % (11.5-14.5); RDW Standard Deviation 58.1 fL (36.4-46.3); Red Blood Count 3.68 M/uL (4.7-6.1); White Blood Count 13.18 K/uL (4.8-10.8)
[2020-07-19 12:25] LABS: INR 1.1 (0.9-1.1); Partial Thromboplastin Ratio 0.9; Partial Thromboplastin Time 24.7 Seconds (21.0-31.0); Prothrombin Time 11.2 Seconds (9.0-12.0)
[2020-07-19 12:34] LABS: Albumin Level 2.7 gm/dl (3.4-5.0); BUN Creatinine Ratio 38.5 (10-20); Calcium 9.4 mg/dl (8.5-10.1); Creatinine Clr Calc Pharmacy 45.1 ml/min; Est GFR (African American) 67.9; Est GFR (Non-African American) 58.6; Potassium 4.1 mmol/L (3.5-5.1)
[2020-07-19 12:36] LABS: Albumin Globulin Ratio 0.7 (0.9-2); Total Protein 6.7 gm/dl (6.4-8.2)
[2020-07-19] MEDS ORDERED: OPTIRAY 320 100ml IV ONE (12:53)
[2020-07-19] MEDS ORDERED: PANTOPRAZOLE BOLUS/DRIP 1 EA IV STA (13:03)
[2020-07-19] MEDS ORDERED: PANTOprazole 80 MG in DEXTROSE 5% 100 ML IV ONE (13:03)
--- NOTE | 2020-07-19 13:18 | CT Scan Report ---
CT SCAN OF THE BRAIN WITHOUT IV CONTRAST CLINICAL HISTORY: Syncope. Fall. COMPARISON STUDY: CT of the brain dated 06/23/2020. TECHNIQUE: Unenhanced axial CT scan of the brain is performed from the vertex to the skull base. A do se lowering technique was utilized adhering to the principles of ALARA. FINDINGS: Brain parenchyma: There are age-related involutional changes noting mild to moderate subcortical and periventricular microangiopathic change. There is no hemorrhage, mass effect, or evidence of acute t erritorial ischemia by CT criteria. Bhatia-white matter differentiation is preserved. No extra-axial fl uid collection is seen. Ventricles, sulci, cisterns: Prominent secondary to involutional change. Intracranial vasculature: There is atherosclerotic calcification of the cavernous carotid and vertebr al arteries. Calvarium: The skeletal structures are osteopenic. There is no depressed calvarial fracture. Sinuses and mastoids: The visualized paranasal sinuses are clear. The mastoid air cells are well pneu matized. Orbits: The bony orbits are grossly intact. IMPRESSION: There is no hemorrhage, mass effect, or evidence of acute territorial ischemia by CT enrique walsh. ACT 112: Negative or not required by law. Electronically signed by: Naseem Agrawal M.D. 07/19/2020 1:16 PM
--- NOTE | 2020-07-19 13:27 | CT Scan Report ---
CT abd pelvis IV con only CLINICAL HISTORY: Abdominal pain. Metastatic prostate carcinoma. Trauma. LUNG CARCINOMA COMPARISON STUDY: 06/23/2020 TECHNIQUE: The patient was scanned in a dynamic helical fashion during intravenous administration of 94 cc of Optiray 320. A dose lowering technique was utilized adhering to the principles of ALARA. CT DOSE: 1340.35 mGy.cm FINDINGS: Lower chest: There are mild basilar atelectatic changes present. There is no pericardial effusion. Th ere are coronary artery calcifications. There is a central venous pacemaker. There is redemonstration of right middle lobe perifissural nodules Liver: There are several hypodense hepatic lesions, the largest of which is located within the right lobe beneath the hepatic dome measuring 11 mm. Metastatic disease cannot be excluded. Gallbladder: Surgically absent Spleen: Normal in size and attenuation. Pancreas: Fatty atrophy Adrenal glands: There is a 47 mm right adrenal mass. There is an 11.2 cm left adrenal mass Kidneys: In addition to small bilateral renal cysts, there are 2 indeterminate lower pole left renal lesions measuring 13 mm and 12 mm respectively. Bowel: There are no transition zones to indicate bowel obstruction. There is moderate rectosigmoid wa ll thickening with infiltration of the pericolonic fat. The findings are indicative of a colitis. Peritoneum: There is no intraperitoneal free air or abdominal ascites. Vasculature: There are aortoiliac atheromatous changes. There is mild ectasia of the infrarenal abdom inal aorta which measures 27 mm. 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 Adenopathy: None. Pelvic viscera: There is bladder wall thickening. There is an indwelling Pack catheter. There is a l arge destructive sacral mass with soft tissue component measuring 85 x 70 x 36 mm. Skeletal structures: There is evidence for a multifocal skeletal metastasis. There is bilateral gynec omastia. IMPRESSION: 1. Multifocal blastic osseous metastasis 2. Large destructive sacral mass with soft tissue component measuring 85 x 70 x 36 mm. 3. Bilateral adrenal masses consistent with metastatic disease 4. Small hypodense hepatic lesions which are viewed as suspicious for metastatic disease 5. Prostatomegaly and bladder wall thickening 6. Interval development of moderate rectosigmoid wall thickening with infiltration of the pericolonic fat. The findings are indicative of a colitis. ACT 112: Negative or not required by law. Electronically signed by: Ervin Barth M.D. 07/19/2020 1:25 PM
[2020-07-19] MEDS: PANTOprazole 40 MG in DEXTROSE 5% 100 ML IV SCH ×2 (13:47→18:39)
[2020-07-19] MEDS ORDERED: ONDANSETRON INJ 2 MG/ML 2 ML VIAL IV PRN ×2 (15:46→17:32)
--- NOTE | 2020-07-19 15:48 | History & Physical Report ---
Date of Service July 19, 2020 Assessment & Plan (1) GI bleeding: Acute GI bleeding, likely upper GI source with presence of melena and persistent melanotic bowel movements for the last 24 hours. Blood pressure is low normal and pulse is in the 60s although patient is on a beta-william per home regimen. Current H&H is 10.2/30.8 with a known baseline of 11/34. Repeat H&H six hours after arrival is 9.6/29.1. He was consented for blood. Clear liquid diet, and ordered IVF to provide hemodynamic support overnight. Will hold beta-william and diuretic therapy including Lasix and spironolactone at this time. Continue PPI drip and consulted GI for further recommendations and work-up. Of note the patient has metastatic cancer, is elderly with dementia and is a DO NOT RESUSCITATE, however the patient's is open to endoscopy if that is felt to be needed. Aspirin has been held-last dose was yesterday as noted above. (2) Syncope and collapse: One episode of syncope and collapse likely related to orthostatic hypotension related to GI bleeding. No obvious or reported head trauma and patient is mentating at baseline. Continue plan per above. (3) Abdominal pain: Diffuse, difficult to localize. Has a h/o chronic abdominal pain from known metastatic disease. Uncertain pain surrounding hernia site. Will ask Surgery to evaluate with reported acute onset pain in this area. (4) Colitis: CT scan reveals evidence of possible colitis, will add empiric antibiotic therapy out of concern for possible bacterial translocation. H/o radiation in th e past. Etiology includes but not limited to ischemic, radiation colitis, infectious colitis. Empiric treatment with Cipro/Flagyl as above. Borderline QTc at 490 on today's EKG. Repeat EKG in am to monitor this. (5) Anemia associated with acute blood loss: Multifactorial cause of anemia including metastatic cancer and other longstanding comorbidities. This is also influenced acutely by acute GI blood losses. slightly lower than baseline. Trend H/H and transfuse as needed. (6) CKD (chronic kidney disease), stage III: baseline (7) Prostate cancer: known h/o prostate cancer diagnosed since 1999 per records with widespread metastatic disease. Per Oncology. (8) Metastatic cancer: (9) DVT prophylaxis: Chemoprophylaxis contraindicated in acute bleed, SCDs ordered DNR/DNI as discussed with on admission Dispo-to telemetry. He recently had a visit to the ER after a fall in May and has declined since that time. Will need PT and OT when appropriate to reevaluate him and assess his abilities to return home safely. [facility] History of Present Illness Chief Complaint: syncope and GI bleeding Primary Care Provider: Ger Dong MD 89 yo M presented to the ER via ambulance reporting some GI bleeding that began last night. He reports having a syncopal episode while trying to ambulate to the bed. His reports that he has had significant weakness with ambulating for the past month and requires significant assistance because of weakness in his legs. As he was trying to stand up and walk to the bed his legs gave out and he was seen to have a temporary loss of consciousness. At this time there was significant black tarry stool coming from his rectum. This melanotic stool continued overnight. The patient denies any fevers chills or any pain or shortness of breath. Review of systems is otherwise negative except for abdominal pain. Chronic abdominal pain is noted 2/2 metastatic prostate cancer and the patient is unable to accurately describe his current pain. His reports a concern about his prior hernia site as she has noted periumbilical pain that is new. This was confirmed on my exam that he has superficial pain just superior to his scar tissue, although current clinical information is not suggestive of bowel entrapment. There was no reported head injury when he fell and he is taking ASA 162mg. Although notes report he was taking Plavix, he only takes aspirin at home with last dose yesterday, 07/18. He denies lightheadedness when sitting still and has not changed position much at all today to note any orthostasis. He continues to have melanotic bowel movements in the ER. He has dementia and history was mainly gained from the who was at bedside, who is his packing checker. Although the patient knows where he is, he cannot recall events correctly in the last 24 hours and is not sure of the date. He has a history of sick sinus syndrome s/p dual chamber pacemaker implantation in September [address] Gallego with RV pacing lead malfunction requiring lead revision by Dr. Rogers later that month. 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 He has metastatic carcinoma of the prostate diagnosed in 1999, s/p bilateral orchiectomy in 2007, radiation treatment in Apr 2011, followed by treatment with Xtandi. He has a h/o TIA July 2018. Allergies Allergy/AdvReac Type Severity Reaction Status Date / Time No Known Allergies Allergy Unknown Verified 07/19/20 13:37 Home Medications Medication Instructions Recorded Confirmed Type cholecalciferol (vitamin D3) 5,000 unit PO QAM 07/27/18 07/19/20 History [Vitamin D3] magnesium oxide 400 mg PO QAM 07/27/18 07/19/20 History polyethylene glycol 3350 [Miralax] 17 g PO DAILY PRN 07/27/18 07/19/20 History potassium chloride 0 meq PO QAM 07/27/18 07/19/20 History spironolactone 12.5 mg PO QAM 07/27/18 07/19/20 History atorvastatin 40 mg PO QAM 06/23/20 07/19/20 History furosemide 20 mg PO QAM 06/23/20 07/19/20 History metoprolol succinate 12.5 mg PO QAM 06/23/20 07/19/20 History oxycodone 5 mg PO Q8H PRN #12 tab 06/23/20 07/19/20 Rx tramadol 50 mg PO Q8H PRN #20 tab 06/23/20 07/19/20 Rx Past Med/Surg History Medical History Bone metastasis Chronic left ventricular systolic heart failure LVEF 35-40% per echo 09/11/15 CKD (chronic kidney disease), stage III History of nephrolithiasis Prostate CA (~2000) Mets to bone and lung. "Adenocarcinoma the prostate Biopsy stage T2c Trev grade 4+4 and 4+ 05/29/2000 Status post TURP October 2007 [place] score 4+4 in 60% of the specimen Status post orchiectomy 2008 due to bone metastasis Status post radiation therapy to the sacrum 05/14/2011 received 3900 cGy Status post completion of radiation therapy to the thoracic/lumbar spine completed 06/17/2014 received 3750 cGy Ongoing treatment with Xtandi" Pulmonary nodules metastatic prostate Ca SSS (sick sinus syndrome) Surgical History Status post cardiac pacemaker procedure Status post cholecystectomy Status post hernia repair Status post orchiectomy Family History Brother Prostate cancer Uncle Prostate cancer Brother Diabetes Mother Coronary heart disease Other Family history non-contributory Social History Smoking Status: Former smoker Tobacco Type: Cigarettes Hx Alcohol Use: No Hx Substance Use: No Preferred Language: Polish Communication Ability: Impaired Process Controller Required: No Beliefs That Will Affect Care: None Current Living Situation: Spouse current occupational status: retired current occupation: retired [employer] Other Information That Helps Us Care for You: No Feels Safe at Home: Yes Safety Concerns: Feels Safe At This Time Assistive Devices: Denture - Upper, Denture - Lower, Glasses and Walker Review of Systems Review of Systems: All systems reviewed & are unremarkable except as noted in HPI & below Physical Exam Physical Exam: CONSTITUTIONAL: WNWD, vitals as above, generally well- appearing EYES: pupils are round and equal bilaterally, normal conjunctivae, no scleral icterus ENT: external ear and nose normal, oropharynx clear, MMM RESPIRATORY: clear to auscultation bilaterally, no crackles, rales or wheezes, normal respiratory effort CARDIOVASCULAR: regular rate and rhythm, S1 and 2 heard without murmurs, gallops or rubs, no JVD, no peripheral edema GASTROINTESTINAL: soft, RUQ TTP, suprapubic TTP, also with some point tenderness superficially around his periumbilical scar tissue and just superior to this area. Nondistended. MUSCULOSKELETAL: generalized weakness, head is normocephalic and atraumatic SKIN: warm and dry NEUROLOGIC: No facial palsy, no dysarthria. CN 2-12 grossly intact, normal cognition, no gross focal deficits. PSYCHIATRIC: alert cooperative and oriented to person and place. Results & Data Results & Data ([facility]) Vital Signs (Past 12 Hours) Vital Signs Temp Pulse Resp BP Pulse Ox 07/19/20 14:50 69 19 97 07/19/20 14:40 72 20 98 07/19/20 14:30 73 18 105/58 L 96 07/19/20 14:20 68 17 96 07/19/20 14:10 67 17 97 07/19/20 14:00 73 17 100/54 L 97 07/19/20 13:50 82 20 99 07/19/20 13:40 69 16 98 07/19/20 13:30 73 17 113/59 L 97 07/19/20 13:20 69 17 97 07/19/20 13:10 72 17 96 07/19/20 13:01 73 16 118/56 L 97 07/19/20 12:40 72 20 97 07/19/20 12:30 74 17 103/62 96 07/19/20 12:20 71 19 97 07/19/20 12:10 75 21 07/19/20 12:02 77 21 106/57 L 07/19/20 12:00 69 106/54 L 96 07/19/20 11:50 76 20 98 07/19/20 11:42 36.6 C 79 19 108/58 L 07/19/20 11:41 79 19 07/19/20 11:34 77 16 108/58 L Laboratory Results Short CBC 07/19/20 Range/Units 12:03 WBC 13.18 H (4.8-10.8) K/uL Hgb 10.2 L (14.0-18.0) g/dL Hct 30.8 L (42-52) % Plt Count 282 (130-400) K/uL BMP 07/19/20 12:03 Sodium 135 L Potassium 4.1 Chloride 101 Carbon Dioxide 26 BUN 43 H Creatinine 1.11 Glucose 135 H Calcium 9.4 Liver Function 07/19/20 Range/Units 12:03 Total Bilirubin 1.0 (0.2-1) mg/dl AST 75 H (15-37) U/L ALT 18 (12-78) U/L Alkaline Phosphatase 291 H (45-117) U/L Albumin 2.7 L (3.4-5.0) gm/dl Diagnostic Findings [facility], [phone] CT Scan Report Patient: TAYLER JEFFERY Date: 07/19/20MR#: [id number]: [id number] ID:[id number]: [address]Birth Date: [address] [place] [address] Zip: [place] [id number]: 89Location: EDSex: MRoom/Bed:Att Phy:Diagnosis: GI BLEEDPri Phy: Ger Dong MDService Date: 07/19/20[facility] Phy:Interpreting Phy: Naseem Agrawal [facility] Phy: Ordering Phy: Iker Torrez MD cc: ~ CT SCAN OF THE BRAIN WITHOUT IV CONTRAST CLINICAL HISTORY: Syncope. Fall. COMPARISON STUDY: CT of the brain dated 06/23/2020. TECHNIQUE: Unenhanced axial CT scan of the brain is performed from the vertex to the skull base. A dose lowering technique was utilized adhering to the principles of ALARA. FINDINGS: Brain parenchyma: There are age-related involutional changes noting mild to moderate subcortical and periventricular microangiopathic change. There is no hemorrhage, mass effect, or evidence of acute territorial ischemia by CT criteria. Bhatia-white matter differentiation is preserved. No extra-axial fluid collection is seen. Ventricles, sulci, cisterns: Prominent secondary to involutional change. Intracranial vasculature: There is atherosclerotic calcification of the cavernous carotid and vertebral arteries. Calvarium: The skeletal structures are osteopenic. There is no depressed calvarial fracture. Sinuses and mastoids: The visualized paranasal sinuses are clear. The mastoid air cells are well pneumatized. Orbits: The bony orbits are grossly intact. IMPRESSION: There is no hemorrhage, mass effect, or evidence of acute territorial ischemia by CT criteria. ACT 112: Negative or not required by law. Electronically signed by: Naseem Agrawal M.D. 07/19/2020 1:16 PM Dictated: 07/19/20 1303Transcribed: 07/19/20 1303 [facility], [phone] CT Scan Report Patient: TAYLER JEFFERY Date: 07/19/20#: [id number] [facility] ID:[id number]: [address]Birth Date: [address] [place] [address] Zip: [place], [place] [id number]: 89Location: EDSex: MRoom/Bed:Att Phy:Diagnosis: GI BLEEDPri Phy: Ger Dong MDService Date: 07/19/20Fam Phy:Interpreting Phy: [facility]th [facility]: Ordering Phy: Iker Torrez MD cc: ~ CT abd pelvis IV con only CLINICAL HISTORY: Abdominal pain. Metastatic prostate carcinoma. Trauma. LUNG CARCINOMA COMPARISON STUDY: 06/23/2020 TECHNIQUE: The patient was scanned in a dynamic helical fashion during intravenous administration of 94 cc of Optiray 320. A dose lowering technique was utilized adhering to the principles of ALARA. CT DOSE: 1340.35 mGy.cm FINDINGS: Lower chest: There are mild basilar atelectatic changes present. There is no pericardial effusion. There are coronary artery calcifications. There is a candis tral venous pacemaker. There is redemonstration of right middle lobe perifissural nodules Liver: There are several hypodense hepatic lesions, the largest of which is located within the right lobe beneath the hepatic dome measuring 11 mm. Metastatic disease cannot be excluded. Gallbladder: Surgically absent Spleen: Normal in size and attenuation. Pancreas: Fatty atrophy Adrenal glands: There is a 47 mm right adrenal mass. There is an 11.2 cm left adrenal mass Kidneys: In addition to small bilateral renal cysts, there are 2 indeterminate lower pole left renal lesions measuring 13 mm and 12 mm respectively. Bowel: There are no transition zones to indicate bowel obstruction. There is moderate rectosigmoid wall thickening with infiltration of the pericolonic fat. The findings are indicative of a colitis. Peritoneum: There is no intraperitoneal free air or abdominal ascites. Vasculature: There are aortoiliac atheromatous changes. There is mild ectasia of the infrarenal abdominal aorta which measures 27 mm. 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 Adenopathy: None. Pelvic viscera: There is bladder wall thickening. There is an indwelling Pack catheter. There is a large destructive sacral mass with soft tissue component measuring 85 x 70 x 36 mm. Skeletal structures: There is evidence for a multifocal skeletal metastasis. There is bilateral gynecomastia. IMPRESSION: 1. Multifocal blastic osseous metastasis 2. Large destructive sacral mass with soft tissue component measuring 85 x 70 x 36 mm. 3. Bilateral adrenal masses consistent with metastatic disease 4. Small hypodense hepatic lesions which are viewed as suspicious for metastatic disease 5. Prostatomegaly and bladder wall thickening 6. Interval development of moderate rectosigmoid wall thickening with infiltration of the pericolonic fat. The findings are indicative of a colitis. ACT 112: Negative or not required by law. Electronically signed by: Ervin Barth M.D. 07/19/2020 1:25 PM Dictated: 07/19/20 1312Transcribed: 07/19/20 1312 Code Status & VTE Plan Code Status DNR as confirmed with at bedside on admission. VTE Prophylaxis Plan VTE Prophylaxis will be ordered: Yes Reason for no VTE drug order: Contraindicated
--- NOTE | 2020-07-19 16:53 | Electrocardiogram Report ---
Test Reason : Blood Pressure : / mmHG Vent. Rate : 078 BPM Atrial Rate : 078 BPM P-R Int : 308 ms QRS Dur : 126 ms QT Int : 430 ms P-R-T Axes : 059 -78 082 degrees QTc Int : 490 ms Sinus rhythm with sinus arrhythmia with 1st degree A-V block Left axis deviation Non-specific intra-ventricular conduction block Abnormal ECG When compared with ECG of 23-JUN-2020 12:56, No significant change was found Confirmed by Chet Gallego ([id number]) on 07/19/2020 4:53:28 PM Referred By: ED Confirmed By:Michael Gallego
[2020-07-19] MEDS ORDERED: POLYETHYLENE (MIRALAX) 17 GM PACK PO PRN (17:32)
[2020-07-19] MEDS ORDERED: ACETAMINOPHEN 325 MG TAB PO PRN (17:32)
--- NOTE | 2020-07-19 18:34 | Surgery Consultation ---
Date of Consultation July 19, 2020 Assessment & Plan (1) H/O hernia repair: I do not think the patient has any significant symptoms from his mesh hernia repair I cannot feel any significant defect or a sac containing any adipose tissue or bowel His colitis could certainly be from his radiation therapy He does have significant bony mets from his prostate cancer I will continue to follow him for change in symptoms and I will also try to discuss this with his History of Present Illness Attending Physician: Luciana Gómez, History of Present Illness 89-year-old male admitted to the hospital with GI bleeding syncope with a history of pacemaker and a cardiomyopathy with ejection fraction of 35% He has had some nonspecific abdominal pain but currently is sitting up in his bed eating his dinner which is a liquid diet Patient apparently has a history of abdominal surgery and cholecystectomy with a midline incision and apparently mesh placement with hernia repair in the past- this is also evident on his CAT scan which does show the mesh but no evidence of defect or A hernia sac containing fat or bowel His CAT scan also shows significant osseous blastic lesions and a sacral mass all associated with metastatic prostate cancer He does have evidence of colitis He has a history of chemotherapy and radiation therapy for the prostate cancer Allergies Allergy/AdvReac Type Severity Reaction Status Date / Time No Known Allergies Allergy Unknown Verified 07/19/20 13:37 Home Medications Medication Instructions Recorded Confirmed Type cholecalciferol (vitamin D3) 5,000 unit PO QAM 07/27/18 07/19/20 History [Vitamin D3] magnesium oxide 400 mg PO QAM 07/27/18 07/19/20 History polyethylene glycol 3350 [Miralax] 17 g PO DAILY PRN 07/27/18 07/19/20 History potassium chloride 0 meq PO QAM 07/27/18 07/19/20 History spironolactone 12.5 mg PO QAM 07/27/18 07/19/20 History atorvastatin 40 mg PO QAM 06/23/20 07/19/20 History furosemide 20 mg PO QAM 06/23/20 07/19/20 History metoprolol succinate 12.5 mg PO QAM 06/23/20 07/19/20 History oxycodone 5 mg PO Q8H PRN #12 tab 06/23/20 07/19/20 Rx tramadol 50 mg PO Q8H PRN #20 tab 06/23/20 07/19/20 Rx Patient History Medical History Bone metastasis Chronic left ventricular systolic heart failure LVEF 35-40% per echo 09/11/15 CKD (chronic kidney disease), stage III History of nephrolithiasis Prostate CA (~2000) Mets to bone and lung. "Adenocarcinoma the prostate Biopsy stage T2c Trev grade 4+4 and 4+ 05/29/2000 Status post TURP October 2007 Trev score 4+4 in 60% of the specimen Status post orchiectomy 2009 due to bone metastasis Status post radiation therapy to the sacrum 05/14/2011 received 3900 cGy Status post completion of radiation therapy to the thoracic/lumbar spine completed 06/17/2014 received 3750 cGy Ongoing treatment with Xtandi" Pulmonary nodules metastatic prostate Ca SSS (sick sinus syndrome) Surgical History Status post cardiac pacemaker procedure Status post cholecystectomy Status post hernia repair Status post orchiectomy Family History Brother Prostate cancer Uncle Prostate cancer Brother Diabetes Mother Coronary heart disease Other Family history non-contributory Social History Smoking Status: Former smoker Tobacco Type: Cigarettes Hx Alcohol Use: No Hx Substance Use: No Preferred Language: Latvian Communication Ability: Impaired Day Care Attendant Required: No Beliefs That Will Affect Care: None Current Living Situation: Spouse current occupational status: retired current occupation: retired [employer] Other Information That Helps Us Care for You: No Feels Safe at Home: Yes Safety Concerns: Feels Safe At This Time Assistive Devices: Denture - Upper, Denture - Lower, Glasses and Walker Review of Systems Review of Systems: All systems reviewed & are unremarkable except as noted in HPI & below Physical Exam Physical Exam: Patient is alert and responsive somewhat disoriented with his place saying he is another hospital He is sitting up in bed eating his dinner which is clear liquid diet He is not complaining of abdominal pain while laying there He does have bowel sounds his abdomen is soft he does have some tenderness over the right side of right lower quadrant to deep palpation but no evidence of peritoneal irritation I do not feel any hernia defect Constitutional: no acute distress Eyes: + anicteric sclerae Respiratory: normal respiratory effort; no respiratory distress Cardiovascular: Rate/Rhythm: regular rate Musculoskeletal: Head/Neck/Chest: head atraumatic Skin: no rashes, warm and dry Neurologic: awake Psychiatric: Orientation: alert and oriented to person Results & Data ([facility]) Vital Signs (Past 12 Hours) Vital Signs Temp Pulse Pulse Resp BP BP BP 07/19/20 17:32 35.9 C L 67 20 94/57 L 07/19/20 16:40 70 18 07/19/20 16:30 73 17 106/64 07/19/20 16:20 70 15 07/19/20 16:10 72 23 07/19/20 16:00 72 19 104/58 L 07/19/20 15:56 36.4 C L 72 18 99/57 L 07/19/20 15:55 72 19 99/57 L 07/19/20 15:50 72 20 07/19/20 15:40 71 20 07/19/20 15:30 72 19 102/57 L 07/19/20 15:20 75 20 07/19/20 15:10 74 19 07/19/20 15:00 73 18 119/58 L 07/19/20 14:50 69 19 07/19/20 14:40 72 20 07/19/20 14:30 73 18 105/58 L 07/19/20 14:20 68 17 07/19/20 14:10 67 17 07/19/20 14:00 73 17 100/54 L 07/19/20 13:50 82 20 07/19/20 13:40 69 16 07/19/20 13:30 73 17 113/59 L 07/19/20 13:20 69 17 07/19/20 13:10 72 17 07/19/20 13:01 73 16 118/56 L 07/19/20 12:40 72 20 07/19/20 12:30 74 17 103/62 07/19/20 12:20 71 19 07/19/20 12:10 75 21 07/19/20 12:02 77 21 106/57 L 07/19/20 12:00 69 106/54 L 07/19/20 11:50 76 20 07/19/20 11:42 36.6 C 79 19 108/58 L 07/19/20 11:41 79 19 07/19/20 11:34 77 16 108/58 L Pulse Ox 07/19/20 17:32 97 07/19/20 16:40 98 07/19/20 16:30 100 07/19/20 16:20 98 07/19/20 16:10 98 07/19/20 16:00 99 07/19/20 15:56 99 07/19/20 15:55 99 07/19/20 15:50 100 07/19/20 15:40 98 07/19/20 15:30 98 07/19/20 15:20 97 07/19/20 15:10 96 07/19/20 15:00 96 07/19/20 14:50 97 07/19/20 14:40 98 07/19/20 14:30 96 07/19/20 14:20 96 07/19/20 14:10 97 07/19/20 14:00 97 07/19/20 13:50 99 07/19/20 13:40 98 07/19/20 13:30 97 07/19/20 13:20 97 07/19/20 13:10 96 07/19/20 13:01 97 07/19/20 12:40 97 07/19/20 12:30 96 07/19/20 12:20 97 07/19/20 12:10 07/19/20 12:02 07/19/20 12:00 96 07/19/20 11:50 98 07/19/20 11:42 07/19/20 11:41 07/19/20 11:34 I did review his CAT scan PG Care Time/CCT Total # of Minutes Spent Total Time Spent with Patient: Total time spent is greater than 50% in coordination of care (as documented) at patient's floor/unit and/or counseling patient: Coding Level of Care Code 42662 Initial Inpt Care Lvl 3 Diagnoses H/O hernia repair Z98.890; Z87.19
[2020-07-19] MEDS ORDERED: traMADol HCL 50 MG TABLET PO PRN (18:39)
[2020-07-19 18:43] LABS: Hematocrit (blood only) 29.1 % (42-52); Hemoglobin 9.6 g/dL (14.0-18.0)
[2020-07-19] MEDS ORDERED: oxyCODONE HCL IR 5 MG TAB (IMMEDIATE RELEASE) PO PRN (18:55)
[2020-07-19] MEDS: SODIUM CHLORIDE 0.9% 1000ML 1,000 ML IV SCH (20:19)
[2020-07-19] MEDS: metroNIDAZOLE 500 MG/100 ML BAG IV SCH (20:19)
[2020-07-19] MEDS: CIPROFLOXACIN / D5W 400 MG/200 ML BAG IV SCH (20:19)
[2020-07-20] MEDS: PANTOprazole 40 MG in DEXTROSE 5% 100 ML IV SCH ×6 (02:17→23:44)
[2020-07-20] MEDS: metroNIDAZOLE 500 MG/100 ML BAG IV SCH (04:06)
--- NOTE | 2020-07-20 06:17 | Surgery Progress Note ---
Date of Service July 20, 2020 Assessment & Plan (1) Abdominal pain: Does appear that his colitis involving the distal sigmoid and rectum is new from a CAT scan several weeks ago Etiology of this is not evident, will check a C. difficile if possible but not having significant loose stool Patient is on IV antibiotics I do not think any of this is related to his prior hernia repair and mesh placement A.m. labs are pending- specifically his H&H No plan for surgical intervention at this point Admission and Anticipated Discharge Date Admission Date: July 19, 2020 Subjective Patient is awake and responsive Not complaining of significant abdominal pain Physical Exam Physical Exam: His abdomen is soft he does have some mild pain to deep palpation in the right lower abdomen No peritoneal signs Constitutional: no acute distress Eyes: + anicteric sclerae Respiratory: no respiratory distress Cardiovascular: Rate/Rhythm: regular rate Musculoskeletal: Head/Neck/Chest: head atraumatic Skin: no rashes, warm and dry Neurologic: awake Psychiatric: Orientation: alert Results & Data ([facility]) Vital Signs (Past 12 Hours) Vital Signs Temp Pulse Pulse Resp BP Pulse Ox 07/20/20 04:27 36.7 C 81 20 117/65 95 07/20/20 00:10 72 07/19/20 23:44 36.3 C L 76 20 112/70 98 07/19/20 20:00 36.8 C 75 20 118/78 98 PG Care Time/CCT Total # of Minutes Spent Total Time Spent with Patient: Total time spent is greater than 50% in coordination of care (as documented) at patient's floor/unit and/or counseling patient: Coding Level of Care Code 64084 Inpt Consult Level 3 Diagnoses Abdominal pain R10.9
[2020-07-20 07:38] LABS: Hematocrit (blood only) 26.8 % (42-52); Hemoglobin 8.7 g/dL (14.0-18.0); Mean Corpuscular Hemoglobin 27.3 pg (25-34); Mean Corpuscular Hgb Conc 32.5 g/dL (32-36); Mean Platelet Volume 8.5 fL (7.4-10.4); Platelet Count 248 K/uL (130-400); RDW Coefficient of Variation 19.5 % (11.5-14.5); Red Blood Count 3.19 M/uL (4.7-6.1)
[2020-07-20 08:06] LABS: BUN Creatinine Ratio 36.9 (10-20); Calcium 8.8 mg/dl (8.5-10.1); Creatinine Clr Calc Pharmacy 64.6 ml/min; Est GFR (Non-African American) 77.6; Potassium 3.2 mmol/L (3.5-5.1)
[2020-07-20] MEDS: SODIUM CHLORIDE 0.9% 1000ML 1,000 ML IV SCH ×2 (08:20→19:41)
[2020-07-20] MEDS: CIPROFLOXACIN / D5W 400 MG/200 ML BAG IV SCH (08:21)
[2020-07-20] MEDS: MAGNESIUM OXIDE 400 MG TAB PO SCH (08:21)
[2020-07-20] MEDS: ATORVASTATIN 40 MG TAB PO SCH (08:21)
[2020-07-20] MEDS ORDERED: PIPERACILL/TAZOBAC CONSULT ACTIVE PRN (09:31)
[2020-07-20] MEDS ORDERED: PIPERACILLIN/TAZOBACTAM 3.375 GM in DEXTROSE 5% 100 ML IV ONE (10:00)
--- NOTE | 2020-07-20 10:17 | Gastrointestinal Consultation ---
Date of Consultation July 20, 2020 Assessment & Plan (1) Anemia associated with acute blood loss: (2) Prostate cancer: (3) Metastatic cancer: (4) Colitis: Pt is a 89 y/o who presented w syncope, melena, noted to have worsening anemia and rectosigmoid wall thickening on CT scan. Head CT unremarkable. He had been on ASA 162mg & Clopidrogel last dose 3 days ago per . Denies Nsaids, tobacco, ETOh - Keep NPO - PPI gtt IV - Plan for EGD eval by Dr. Ayoub today vs tomorrow (depending on procedure time availability) - Monitor blood ct and transfuse prn Supervising Physician Co-Signing Physician Notes I saw and evaluated the patient and his . We were consulted with regard to a question of melena that began yesterday evening. Of note the patient has a history of metastatic prostate cancer significant changes in the region of the sacrum. Physical examination Elderly male, no obvious distress no abdominal tenderness Impression: Patient with a history of dark stool with a slight drop in his h emoglobin and hematocrit. We could certainly do further evaluation with upper endoscopy to evaluate for evidence of peptic ulcer disease or perhaps arteriovenous malformations given his underlying cardiac disease I have discussed the risks and benefits of the procedure with the patient's who will be providing consent for the patient given his history of dementia. Plan: Continue with Protonix drip as you are doing Please stop the aspirin and Plavix Upper endoscopy arranged at next available time on morning (unable to secure a position this afternoon) History of Present Illness Reason for Consultation: GI bleeding Requesting Physician: Dr. Garcia Schulte Attending Physician: Dr. Elysia Ayoub History of Present Illness Pt is a 89 yo male w hx of metastatic prostate ca s/p orchiectomy, XRT, oral chemo who presented yesterday after having syncope episode at home. He is unable to provide history, (Rao) is primary source of information, chart rev iewed. Pt had associated bowel incontinence and passage of black tarry stools as he was having syncope. Then later c/o mid abd discomfort. No n/v symptoms. reports his appetite had declined recently. On eval, noted worsening anemia: H/H 01/19, baseline Hgb 11. BUN/Cr 41/1.3. PT/INR 11/1.1. He is on ASA 162mg & Clopidrogel (last dose 3 days ago, confirmed w ). No NSAIDs, tobacco, ETOH. Head CT: unremarkable CT abd/pelvis w IV contrast 1. Multifocal blastic osseous metastasis 2. Large destructive sacral mass with soft tissue component measuring 85 x 70 x 36 mm. 3. Bilateral adrenal masses consistent with metastatic disease 4. Small hypodense hepatic lesions which are viewed as suspicious for metastatic disease 5. Prostatomegaly and bladder wall thickening 6. Interval development of moderate rectosigmoid wall thickening with infiltration of the pericolonic fat. 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 Previous colonoscopy 2000 showed colon polyps Allergies Allergy/AdvReac Type Severity Reaction Status Date / Time No Known Allergies Allergy Unknown Verified 07/19/20 13:37 Home Medications Medication Instructions Recorded Confirmed Type cholecalciferol (vitamin D3) 5,000 unit PO QAM 07/27/18 07/19/20 History [Vitamin D3] magnesium oxide 400 mg PO QAM 07/27/18 07/19/20 History polyethylene glycol 3350 [Miralax] 17 g PO DAILY PRN 07/27/18 07/19/20 History potassium chloride 0 meq PO QAM 07/27/18 07/19/20 History spironolactone 12.5 mg PO QAM 07/27/18 07/19/20 History atorvastatin 40 mg PO QAM 06/23/20 07/19/20 History furosemide 20 mg PO QAM 06/23/20 07/19/20 History metoprolol succinate 12.5 mg PO QAM 06/23/20 07/19/20 History oxycodone 5 mg PO Q8H PRN #12 tab 06/23/20 07/19/20 Rx tramadol 50 mg PO Q8H PRN #20 tab 06/23/20 07/19/20 Rx Patient History Medical History (Updated 07/20/20 @ 10:56 by Marvin Romano MD) Anemia Bone metastasis Chronic left ventricular systolic heart failure LVEF 35-40% per echo 09/11/15 CKD (chronic kidney disease), stage III History of nephrolithiasis Prostate CA (~2000) Mets to bone and lung. "Adenocarcinoma the prostate Biopsy stage T2c [place] grade 4+4 and 4+ 05/29/2000 Status post TURP October 2007 Trev score 4+4 in 60% of the specimen Status post orchiectomy 2009 due to bone metastasis Status post radiation therapy to the sacrum 05/14/2011 received 3900 cGy Status post completion of radiation therapy to the thoracic/lumbar spine completed 06/17/2014 received 3750 cGy Ongoing treatment with Xtandi" Pulmonary nodules metastatic prostate Ca SSS (sick sinus syndrome) Surgical History Status post cardiac pacemaker procedure Status post cholecystectomy Status post hernia repair Status post orchiectomy Family History Brother Prostate cancer Uncle Prostate cancer Brother Diabetes Mother Coronary heart disease Other Family history non-contributory Social History Smoking Status: Former smoker Tobacco Type: Cigarettes Hx Alcohol Use: No Hx Substance Use: No Preferred Language: Yemeni Communication Ability: Effective Steam Flattener Required: No Beliefs That Will Affect Care: None marital status: Current Living Situation: Spouse current occupational status: retired current occupation: retired [employer] Other Information That Helps Us Care for You: No Feels Safe at Home: Yes Safety Concerns: Feels Safe At This Time Assistive Devices: Denture - Upper, Denture - Lower, Glasses and Walker Review of Systems Review of Systems: Unobtainable due to cognitive status Physical Exam Constitutional: + frail appearing, well groomed, cooperative and comfortable Eyes: PERRL, conjunctivae normal, anicteric sclerae ENMT: external ear and nose normal, oropharynx normal Respiratory: no respiratory distress and does not use accessory muscles Auscultation: + diminished lung sounds Cardiovascular: RRR, no murmur, no edema Gastrointestinal (Abdomen): Inspection/Auscultation: + hypoactive bowel sounds Percussion/Palpation: + abdomen tender (RUQ ) and abdomen soft Skin: no rashes, warm and dry no jaundice Psychiatric: Orientation: alert and cooperative not verbalizing answers, mostly nods/shakes head Lymphatic: no lymphedema Results & Data ([facility]) Vital Signs (Past 12 Hours) Vital Signs Temp Pulse Pulse Resp BP Pulse Ox 07/20/20 07:12 36.4 C L 68 18 120/58 L 95 07/20/20 07:10 73 07/20/20 04:27 36.7 C 81 20 117/65 95 07/20/20 00:10 72 07/19/20 23:44 36.3 C L 76 20 112/70 98
--- NOTE | 2020-07-20 10:56 | Anesthesiology Consultation ---
Date of Service July 20, 2020 Assessment & Plan (1) Encounter for pre-operative examination: Chart Review Chart Review: Acceptable Risk for Surgery History Surgery Operation Date: 07/20/20 17:00 Proposed Procedures p Esophagogastroduodenoscopy Dr Mega Ayoub, Height/Weight Height: 5 ft 8 in Weight: 88.9 kg Allergies Allergy/AdvReac Type Severity Reaction Status Date / Time No Known Allergies Allergy Unknown Verified 07/19/20 13:37 Medications Home Medications Medication Instructions Recorded Confirmed Last Taken cholecalciferol (vitamin D3) 5,000 unit PO QAM 07/27/18 07/19/20 07/18/20 [Vitamin D3] magnesium oxide 400 mg PO QAM 07/27/18 07/19/20 07/18/20 polyethylene glycol 3350 [Miralax] 17 g PO DAILY PRN 07/27/18 07/19/20 Unknown potassium chloride 0 meq PO QAM 07/27/18 07/19/20 07/18/20 spironolactone 12.5 mg PO QAM 07/27/18 07/19/20 07/18/20 atorvastatin 40 mg PO QAM 06/23/20 07/19/20 07/18/20 furosemide 20 mg PO QAM 06/23/20 07/19/20 07/18/20 metoprolol succinate 12.5 mg PO QAM 06/23/20 07/19/20 07/18/20 oxycodone 5 mg PO Q8H PRN #12 tab 06/23/20 07/19/20 Unknown tramadol 50 mg PO Q8H PRN #20 tab 06/23/20 07/19/20 Unknown Active Medications Generic Name Dose Route Start Last Admin Trade Name Freq PRN Reason Stop Dose Admin Atorvastatin Calcium 40 mg 07/20/20 09:00 07/20/20 08:21 Atorvastatin 40 Mg Tab PO 08/19/20 08:59 40 mg QAM NELSON Administration Pantoprazole Sodium 40 mg/ 100 mls @ 20 mls/hr 07/19/20 13:19 07/20/20 08:06 Dextrose IV 08/18/20 13:18 8 mg/hr Q5H NELSON 20 mls/hr Administration 8 MG/HR Sodium Chloride 1,000 mls @ 60 mls/hr 07/19/20 19:00 07/20/20 08:20 Nss 1000ml IV 08/18/20 18:59 100 mls/hr .[id number] NELSON Administration Magnesium Oxide 400 mg 07/20/20 09:00 07/20/20 08:21 Magnesium Oxide 400 Mg Tab PO 08/19/20 08:59 400 mg QAM NELSON Administration Past Medical History Medical History (Updated 07/20/20 @ 10:56 by Marvin Romano MD) Anemia Bone metastasis Chronic left ventricular systolic heart failure LVEF 35-40% per echo 09/11/15 CKD (chronic kidney disease), stage III History of nephrolithiasis Prostate CA (~2000) Mets to bone and lung. "Adenocarcinoma the prostate Biopsy stage T2c Trev grade 4+4 and 4+ 05/29/2000 Status post TURP October 2007 [place] score 4+4 in 60% of the specimen Status post orchiectomy 2008 due to bone metastasis Status post radiation therapy to the sacrum 05/14/2011 received 3900 cGy Status post completion of radiation therapy to the thoracic/lumbar spine completed 06/17/2014 received 3750 cGy Ongoing treatment with Xtandi" Pulmonary nodules metastatic prostate Ca SSS (sick sinus syndrome) Past Family History Family History Brother Prostate cancer Uncle Prostate cancer Brother Diabetes Mother Coronary heart disease Other Family history non-contributory Past Surgical History Surgical History Status post cardiac pacemaker procedure Status post cholecystectomy Status post hernia repair Status post orchiectomy Social History Smoking Status: Former smoker Hx Alcohol Use: No Hx Substance Use: No substance use type: does not use Physical Exam Vital Signs Last Vital Signs Temp 36.4 C L 07/20/20 07:12 Pulse 68 07/20/20 07:12 Resp 18 07/20/20 07:12 BP 120/58 L 07/20/20 07:12 Pulse Ox 95 07/20/20 07:12 Testing Laboratory Results 07/20/20 06:46 07/20/20 06:46 PT 11.2 Seconds (9.0-12.0) 07/19/20 12:03 INR 1.1 (0.9-1.1) 07/19/20 12:03 APTT 24.7 Seconds (21.0-31.0) 07/19/20 12:03 Blood Type A Positive 07/19/20 12:03 Antibody Screen NEGATIVE 07/19/20 12:03 Echocardiogram Date: 07/28/18 EF: 50-55% Valvular Disease: + no significant valvular disease
--- NOTE | 2020-07-20 12:23 | Electrocardiogram Report ---
Test Reason : Blood Pressure : / mmHG Vent. Rate : 076 BPM Atrial Rate : 076 BPM P-R Int : 310 ms QRS Dur : 134 ms QT Int : 446 ms P-R-T Axes : 040 -77 092 degrees QTc Int : 501 ms Sinus rhythm with sinus arrhythmia with 1st degree A-V block with occasional Premature ventricular co mplexes Left axis deviation Non-specific intra-ventricular conduction block Abnormal ECG When compared with ECG of 19-JUL-2020 11:37, Premature ventricular complexes are now Present Confirmed by Chet Gallego ([id number]) on 07/20/2020 12:23:05 PM Referred By: REFERRED SELF Confirmed By:Michael Gallego
[2020-07-20] MEDS ORDERED: POTASSIUM CHLORIDE CRTAB 20 MEQ TABCR PO ONE (14:00)
[2020-07-20 14:06] LABS: Hemoglobin 8.5 g/dL (14.0-18.0)
[2020-07-20] MEDS: PIPERACILLIN/TAZOBACTAM 3.375 GM in DEXTROSE 5% 100 ML IV SCH ×2 (15:40→23:43)
--- NOTE | 2020-07-20 17:47 | Hospitalist Progress Note ---
Date of Service July 20, 2020 Assessment & Plan (1) GI bleeding: Melena, likely upper GI source with presence of melena and persistent melanotic bowel movements for the last 24 hours. Hg 10.2 to 8.5 continue Protonix drip for EGD tomorrow per , patient takes ASA and Plavix at home--> hold for now Will hold beta-william and diuretic therapy including Lasix and spironolactone at this time. (2) Syncope and collapse: One episode of syncope and collapse likely related to orthostatic hypotension related to GI bleeding. CT head: no acute process mental status at baseline per (3) Abdominal pain: per admitting service notes: Has a h/o chronic abdominal pain from known metastatic disease General surgery consulted, unlikely secondary to Hernia likely from underlying Gastritis vs PUD management per above (4) Colitis: CT scan reveals evidence of possible colitis Etiology includes but not limited to ischemic, radiation colitis, infectious c olitis. -- check stool for C diff -- on Zosyn IV (5) Anemia associated with acute blood loss: Multifactorial cause of anemia including metastatic cancer and other longstanding comorbidities. -- monitor closely anemia panel (6) CKD (chronic kidney disease), stage III: baseline (7) Prostate cancer: known h/o prostate cancer diagnosed since 1999 per records with widespread metastatic disease. Per Oncology. (8) Metastatic cancer: (9) DVT prophylaxis: Chemoprophylaxis contraindicated in acute bleed, SCDs ordered DNR/DNI as discussed with on admission Disposition: PT/OT evaluation Admission and Anticipated Discharge Date Admission Date: July 19, 2020 Subjective ff up for melena, etc seen resting in bed, sitting up, comfortable , somewhat weak patient's at the bedside patient reports mild-moderate epigastric discomfort with some nausea (+) loose BMs today, no chills denies headache, dizziness, chest pain, dyspnea, palpitations no other symptoms Review of Systems Review of Systems: All systems reviewed & are unremarkable except as noted in Subjective Physical Exam Physical Exam: General- oriented x 2, not in distress, speaks in sentences with no effort or accessory muscle use Head- atraumatic Eyes- PERRL, EOMI, anicteric ENT- oropharynx clear Neck- supple, no JVD, no adenopathy, no thyromegaly; carotids +2/2, no bruits appreciated Lungs- clear to auscultation bilaterally, no rales/wheezes Heart- normal rate, regular rhythm; no murmur, no gallop, no rub appreciated Abdomen- normal bowel sounds, nondistended, soft, (+) mild central abdomen tenderness, no masses or hepatosplenomegaly Extremities- no pretibial edema, no calf tenderness; peripheral pulses intact Neuro- alert, oriented x 2; CN 2-12 grossly intact; motor 5/5 bilaterally;sensation 100% on all extremities; no other gross focal neurologic deficits Skin- warm & dry Results & Data Results & Data ([facility]) Vital Signs (Past 12 Hours) Vital Signs Temp Pulse Pulse Resp BP Pulse Ox 07/20/20 15:17 36.5 C 70 18 110/67 96 07/20/20 11:14 36.5 C 72 18 113/70 94 07/20/20 07:12 36.4 C L 68 18 120/58 L 95 07/20/20 07:10 73 Laboratory Results Laboratory Results - last 24 hr 07/19/20 07/20/20 07/20/20 18:01 06:46 06:46 WBC 9.10 RBC 3.19 L Hgb 9.6 L 8.7 L Hct 29.1 L 26.8 L MCV 84.0 MCH 27.3 MCHC 32.5 RDW Std Deviation 58.0 H RDW Coeff of Carlos A 19.5 H Plt Count 248 MPV 8.5 Sodium 136 Potassium 3.2 L D Chloride 104 Carbon Dioxide 25 Anion Gap 7.0 BUN 31 H Creatinine 0.84 Est Cr Clr Drug Dosing 64.6 Est GFR ( Amer) 90.0 Est GFR (Non-Af Amer) 77.6 BUN/Creatinine Ratio 36.9 H Glucose 105 H Calcium 8.8 07/20/20 13:48 WBC RBC Hgb 8.5 L Hct 26.0 L MCV MCH MCHC RDW Std Deviation RDW Coeff of Carlos A Plt Count MPV Sodium Potassium Chloride Carbon Dioxide Anion Gap BUN Creatinine Est Cr Clr Drug Dosing Est GFR ( Amer) Est GFR (Non-Af Amer) BUN/Creatinine Ratio Glucose Calcium
[2020-07-21] MEDS: PANTOprazole 40 MG in DEXTROSE 5% 100 ML IV SCH ×2 (04:52→11:09)
[2020-07-21 06:39] LABS: Basophils # (auto) 0.01 K/uL (0-0.2); Basophils % (auto) 0.1 %; Eosinophils # (auto) 0.12 K/uL (0-0.5); Eosinophils % (auto) 1.5 %; Hematocrit (blood only) 26.4 % (42-52); Hemoglobin 8.4 g/dL (14.0-18.0); Immature Granulocytes # (auto) 0.02 K/uL (0.00-0.02); Immature Granulocytes % (auto) 0.2 %; Lymphocytes # (auto) 0.65 K/uL (1.2-3.4); Lymphocytes % (auto) 8.1 %; Mean Corpuscular Hemoglobin 27.2 pg (25-34); Mean Corpuscular Hgb Conc 31.8 g/dL (32-36); Mean Corpuscular Volume 85.4 fL (80-100); Mean Platelet Volume 8.2 fL (7.4-10.4); Monocytes # (auto) 0.77 K/uL (0.11-0.59); Monocytes % (auto) 9.6 %; Neutrophils # (auto) 6.47 K/uL (1.4-6.5); Neutrophils % (auto) 80.5 %; Platelet Count 220 K/uL (130-400); RDW Coefficient of Variation 19.9 % (11.5-14.5); Red Blood Count 3.09 M/uL (4.7-6.1); White Blood Count 8.04 K/uL (4.8-10.8)
[2020-07-21 07:06] LABS: BUN Creatinine Ratio 21.3 (10-20); Calcium 8.4 mg/dl (8.5-10.1); Creatinine Clr Calc Pharmacy 46.8 ml/min; Est GFR (African American) 64.4; Est GFR (Non-African American) 55.5; Potassium 3.8 mmol/L (3.5-5.1)
--- NOTE | 2020-07-21 07:06 | XRay Report ---
XR chest 1V portable CLINICAL HISTORY: Shortness of breath COMPARISON STUDY: 06/23/2020 FINDINGS: The cardiac and mediastinal contours remain stable. There is a left subclavian dual-chamber central venous pacemaker. There is aortic tortuosity/ectasia. There are increasing hazy upper lung z one opacities which on a prior CT scan represented skeletal metastasis. Advanced arthritic changes ar e present within the right shoulder. There is no acute lobar consolidation. There is no failure.[ IMPRESSION: 1. Increasing hazy upper lung zone opacities, consistent with the patient's known skeletal metastasis . ACT 112: Negative or not required by law. Electronically signed by: Ervin Barth M.D. 07/21/2020 7:05 AM
[2020-07-21 07:13] LABS: Ferritin 1272.6 ng/ml (8-388)
[2020-07-21] MEDS: MAGNESIUM OXIDE 400 MG TAB PO SCH (07:33)
[2020-07-21] MEDS: ATORVASTATIN 40 MG TAB PO SCH (07:33)
[2020-07-21 07:35] LABS: Folate (Folic Acid) 3.1 ng/ml (>5.38)
[2020-07-21] MEDS: PIPERACILLIN/TAZOBACTAM 3.375 GM in DEXTROSE 5% 100 ML IV SCH ×3 (07:35→23:41)
[2020-07-21] MEDS ORDERED: PROPOFOL IV EMULSION 10 MG/ML 20 ML VIAL IV ONE (09:50)
[2020-07-21] MEDS ORDERED: LIDOCAINE 2% 2 ML VIAL/AMP(20MG/ML) INFIL ONE (09:50)
--- NOTE | 2020-07-21 09:50 | History & Physical Bridge Note ---
Date of Service July 21, 2020 History & Physical Bridge Note I have examined the patient, reviewed the History & Physical and in the interval since the performance of the History & Physical I have noted the following changes of clinical significance: no changes noted. We are planning to do upper endoscopy today for question of melena. I have discussed the risks and benefits of the procedure with the patient's who signed his consent today.
--- NOTE | 2020-07-21 10:13 | GI REPORT ---
Patient Name: Randy Laguna Procedure Date: 07/21/2020 9:52 AM Date of : 1930 Admit Type: Inpatient Age: 89 Gender: Male Attending MD: Elysia Ayoub DO Procedure: Upper GI endoscopy Providers: Elysia Ayoub DO Referring MD: Garcia Schulte Indications: Melena Medicines: Monitored Anesthesia Care Complications: No immediate complications. Estimated blood loss: Minimal. Estimated Blood Loss: Estimated blood loss was minimal. Procedure: Pre-Anesthesia Assessment: - Prior to the procedure, a History and Physical was performed, and patient medications, allergies and sensitivities were reviewed. The patient's tolerance of previous anesthesia was reviewed. - The risks and benefits of the procedure and the sedation options and risks were discussed with the patient. All questions were answered and informed consent was obtained. - Patient identification and proposed procedure were verified prior to the procedure by the physician, the nurse and the cereal supervisor. The procedure was verified in the procedure room. - Pre-procedure physical examination revealed no contraindications to sedation. - ASA Grade Assessment: III - A patient with severe systemic disease. - After reviewing the risks and benefits, the patient was deemed in satisfactory condition to undergo the procedure. - The anesthesia plan was to use monitored anesthesia care (MAC). - Immediately prior to administration of medications, the patient was re-assessed for adequacy to receive sedatives. - The heart rate, respiratory rate, oxygen saturations, blood pressure, adequacy of pulmonary ventilation, and response to care were monitored throughout the procedure. - The physical status of the patient was re-assessed after the procedure. After obtaining informed consent, the endoscope was passed under direct vision. Throughout the procedure, the patient's blood pressure, pulse, and oxygen saturations were monitored continuously. The Endoscope was introduced through the mouth, and advanced to the third part of duodenum. The upper GI endoscopy was accomplished without difficulty. The patient tolerated the procedure well. Findings: The examined esophagus was normal. The Z-line was regular and was found 40 cm from the incisors. Diffuse mild inflammation characterized by congestion (edema), erythema and granularity was found in the entire examined stomach. Biopsies were taken with a cold forceps for histology. The pathology specimen was placed into Bottle B. Estimated blood loss was minimal. Many non-obstructing non-bleeding cratered duodenal ulcers with no stigmata of bleeding were found in the duodenal bulb. The largest lesion was 8 mm in largest dimension. Biopsies were taken with a cold forceps for histology. Estimated blood loss was minimal. The second portion of the duodenum and third portion of the duodenum were normal. Impression: - Normal esophagus. - Z-line regular, 40 cm from the incisors. - Gastritis. Biopsied. - Non-obstructing non-bleeding duodenal ulcers with no stigmata of bleeding. Biopsied. - Normal second portion of the duodenum and third portion of the duodenum. Recommendation: - [facility]. - Mechanical soft diet. - No aspirin, ibuprofen, naproxen, or other non-steroidal anti-inflammatory drugs for 4 weeks. - Await pathology results. - Use Protonix (pantoprazole) 40 mg PO BID for 6 weeks the 1 time daily thereafter. - Use sucralfate tablets 1 gram PO QID for 2 weeks. Elysia Ayoub D.O. Elysia Ayoub, 07/21/2020 10:13:03 AM This report has been signed electronically. Note Initiated On: 07/21/2020 9:52 AM Number of Addenda: 0 I attest to the content of the Intraoperative Record and orders documented therein, exceptions below {[id number]}
--- NOTE | 2020-07-21 11:42 | Anesthesiology Progress Note ---
Date of Service July 21, 2020 Anesthesia Post Procedure Vital Signs Vital Signs: Temp Pulse Pulse Resp BP BP Pulse Ox 07/21/20 10:44 72 16 107/61 97 07/21/20 10:29 69 16 110/62 98 07/21/20 10:14 74 20 97/53 L 98 07/21/20 09:37 36.5 C 75 18 116/70 95 07/21/20 07:10 66 07/21/20 06:37 36.3 C L 70 16 124/71 94 07/21/20 04:30 36.6 C 66 18 122/54 L 95 07/20/20 23:11 36.4 C L 72 18 121/73 97 07/20/20 22:29 71 07/20/20 19:05 36.4 C L 70 16 117/49 L 96 07/20/20 15:17 36.5 C 70 18 110/67 96 Pain Intensity Right Abdomen: Pain Intensity: 3 Transfer of Care Handoff Completed per policy Notes Mental Status: alert / awake / arousable and participated in evaluation Patient Amnestic to Procedure: Yes Nausea / Vomiting: adequately controlled Pain: adequately controlled Airway Patency, RR, SpO2: stable & adequate BP & HR: stable & adequate Hydration State: stable & adequate Anesthetic Complications: no major complications apparent and Pt Satisfied with anesthetic care
[2020-07-21] MEDS: SUCRALFATE 1 GM/10 ML UDC PO SCH ×3 (12:37→20:46)
--- NOTE | 2020-07-21 17:31 | Hospitalist Progress Note ---
Date of Service July 21, 2020 Assessment & Plan (1) GI bleeding: Melena, likely upper GI source with presence of melena and persistent melanotic bowel movements for the last 24 hours. Hg 10.2 to 8.5, stable at ~8 S/P EGD: (+) Duodenal ulcers, Gastritis Protonix drip changed to PO per , patient takes ASA and Plavix at home--> hold for now resume tomorrow Will hold beta-william and diuretic therapy including Lasix and spironolactone at this time--> likely resume tomorrow (2) Syncope and collapse: One episode of syncope and collapse likely related to orthostatic hypotension related to GI bleeding. CT head: no acute process mental status at baseline per (3) Abdominal pain: per admitting service notes: Has a h/o chronic abdominal pain from known metastatic disease General surgery consulted, unlikely secondary to Hernia likely from underlying Gastritis vs PUD management per above (4) Colitis: CT scan reveals evidence of possible colitis Etiology includes but not limited to ischemic, radiation colitis, infectious colitis. -- check stool for C diff -- on Zosyn IV -- diarrhea improving (5) Anemia associated with acute blood loss: Multifactorial cause of anemia including metastatic cancer and other longstanding comorbidities. -- monitor closely anemia panel: low iron, folate will order IV iron and folic acid PO (6) CKD (chronic kidney disease), stage III: baseline (7) Prostate cancer: known h/o prostate cancer diagnosed since 1999 per records with widespread metastatic disease. Per Oncology. (8) Metastatic cancer: (9) DVT prophylaxis: Chemoprophylaxis contraindicated in acute bleed, SCDs ordered DNR/DNI as discussed with on admission Disposition: PT/OT evaluation plan of care discussed with patient and his in detail and at length all questions answered he is understanding, agreeable, comfortable with plan of care Admission and Anticipated Discharge Date Admission Date: July 19, 2020 Subjective ff up for upper gi bleed seen resting in bed, comfortable s/p EGD tolerated well states he feels ok, just tired no abdominal pain, nausea/vomiting no chest pain, palpitations, dizziness no other symptoms Review of Systems Review of Systems: All systems reviewed & are unremarkable except as noted in Subjective Physical Exam Physical Exam: General- oriented x2, not in distress, speaks in sentences with no effort or accessory muscle use Eyes- anicteric Neck- no JVD Lungs- clear breath sounds bilaterally Heart- normal rate, regular rhythm; no murmurs Abdomen- normal bowel sounds, nondistended, soft, nontender Extremities-mild edema UE, mild pretibial edema, no calf tenderness Neuro- alert, oriented x 2; no gross focal neurologic deficits Skin- warm & dry Results & Data Results & Data ([facility]) Vital Signs (Past 12 Hours) Vital Signs Temp Pulse Pulse Resp BP BP Pulse Ox 07/21/20 15:52 36.4 C L 66 18 105/54 L 92/55 L 96 07/21/20 11:55 36.2 C L 72 20 97/52 L 94 07/21/20 10:44 72 16 107/61 97 07/21/20 10:29 69 16 110/62 98 07/21/20 10:14 74 20 97/53 L 98 07/21/20 09:37 36.5 C 75 18 116/70 95 07/21/20 07:10 66 07/21/20 06:37 36.3 C L 70 16 124/71 94
[2020-07-21] MEDS: PANTOprazole 40 MG TAB PO SCH (20:46)
[2020-07-22 07:31] LABS: Basophils # (auto) 0.01 K/uL (0-0.2); Basophils % (auto) 0.2 %; Eosinophils # (auto) 0.11 K/uL (0-0.5); Eosinophils % (auto) 1.8 %; Hematocrit (blood only) 25.2 % (42-52); Hemoglobin 8.3 g/dL (14.0-18.0); Immature Granulocytes # (auto) 0.02 K/uL (0.00-0.02); Immature Granulocytes % (auto) 0.3 %; Lymphocytes # (auto) 0.57 K/uL (1.2-3.4); Lymphocytes % (auto) 9.1 %; Mean Corpuscular Hemoglobin 27.9 pg (25-34); Mean Corpuscular Hgb Conc 32.9 g/dL (32-36); Mean Corpuscular Volume 84.8 fL (80-100); Mean Platelet Volume 8.1 fL (7.4-10.4); Monocytes # (auto) 0.81 K/uL (0.11-0.59); Neutrophils # (auto) 4.73 K/uL (1.4-6.5); Neutrophils % (auto) 75.6 %; Platelet Count 209 K/uL (130-400); RDW Coefficient of Variation 20.1 % (11.5-14.5); RDW Standard Deviation 59.9 fL (36.4-46.3); Red Blood Count 2.97 M/uL (4.7-6.1); White Blood Count 6.25 K/uL (4.8-10.8)
[2020-07-22] MEDS: SUCRALFATE 1 GM/10 ML UDC PO SCH ×4 (08:01→21:16)
[2020-07-22] MEDS: PANTOprazole 40 MG TAB PO SCH ×2 (08:01→21:16)
[2020-07-22] MEDS: MAGNESIUM OXIDE 400 MG TAB PO SCH (08:01)
[2020-07-22] MEDS: ATORVASTATIN 40 MG TAB PO SCH (08:01)
[2020-07-22 08:05] LABS: BUN Creatinine Ratio 16.5 (10-20); Calcium 8.4 mg/dl (8.5-10.1); Creatinine Clr Calc Pharmacy 41.3 ml/min; Est GFR (African American) 55.6; Est GFR (Non-African American) 47.9; Potassium 3.2 mmol/L (3.5-5.1)
[2020-07-22] MEDS: PIPERACILLIN/TAZOBACTAM 3.375 GM in DEXTROSE 5% 100 ML IV SCH ×2 (08:07→16:22)
[2020-07-22 08:08] LABS: Anisocytosis Present
[2020-07-22] MEDS ORDERED: IRON SUCROSE 150 MG in SODIUM CHLORIDE 0.9% 250 ML IV ONE (09:15)
[2020-07-22] MEDS: CLOPIDOGREL BISULFATE 75 MG TAB PO SCH (10:07)
[2020-07-22] MEDS: FOLIC ACID 1 MG TAB PO SCH (10:08)
[2020-07-22] MEDS ORDERED: METOPROLOL SUCC 25MG EXT REL TAB PO ONE (11:00)
[2020-07-22] MEDS: POTASSIUM CHLORIDE CRTAB 20 MEQ TABCR PO SCH (14:59)
--- NOTE | 2020-07-22 16:39 | Hospitalist Progress Note ---
Date of Service July 22, 2020 Assessment & Plan (1) GI bleeding: Melena, likely upper GI source with presence of melena and persistent melanotic bowel movements for the last 24 hours. Hg 10.2 to 8.5, stable at ~8 S/P EGD: (+) Duodenal ulcers, Gastritis Protonix drip changed to PO per , patient takes ASA and Plavix at home discussed with GI and Neuro will restart Plavix only, dual antiplatelet not recommended at this time per Neurologist Dr. Santos Will hold beta-william and diuretic therapy including Lasix and spironolactone at this time as BP on the lower side (2) Syncope and collapse: One episode of syncope and collapse likely related to orthostatic hypotension related to GI bleeding. CT head: no acute process mental status at baseline per (3) Abdominal pain: per admitting service notes: Has a h/o chronic abdominal pain from known metastatic disease General surgery consulted, unlikely secondary to Hernia likely from underlying Gastritis vs PUD management per above resolved (4) Colitis: CT scan reveals evidence of possible colitis Etiology includes but not limited to ischemic, radiation colitis, infectious colitis -- check stool for C diff -- placed on Zosyn IV -- diarrhea resolved (5) Anemia associated with acute blood loss: Multifactorial cause of anemia including metastatic cancer and other longstanding comorbidities. -- monitor closely anemia panel: low iron, folate ordered IV iron oral FeSO4 and folic acid PO (6) CKD (chronic kidney disease), stage III: baseline (7) Prostate cancer: known h/o prostate cancer diagnosed since 1999 per records with widespread metastatic disease. Per Oncology. (8) Metastatic cancer: (9) DVT prophylaxis: Chemoprophylaxis contraindicated in acute bleed, SCDs ordered DNR/DNI as discussed with on admission Disposition: PT/OT evaluation plan of care discussed with patient and his in detail and at length all questions answered they are understanding, agreeable, comfortable with plan of care Admission and Anticipated Discharge Date Admission Date: July 19, 2020 Subjective ff up for anemia, Upper GI bleed, etc seen resting in bedside chair, comfortable states he feels fine overall no abdominal pain , nausea, tolerating diet well no melena/hematochezia able to transfer to chair but weak , per patient's no headache, dizziness, chest pain, dyspnea, palpitations no other symptoms Review of Systems Review of Systems: All systems reviewed & are unremarkable except as noted in Subjective Physical Exam Physical Exam: General- oriented x 2, not in distress, speaks in sentences with no effort or accessory muscle use Eyes- anicteric Neck- no JVD Lungs- clear breath sounds bilaterally no crackles no wheezing Heart- normal rate, regular rhythm; no murmurs Abdomen- normal bowel sounds, nondistended, soft, nontender Extremities- no pretibial edema, no calf tenderness Neuro- alert, oriented x 2; no gross focal neurologic deficits Skin- warm & dry Results & Data Results & Data ([facility]) Vital Signs (Past 12 Hours) Vital Signs Temp Pulse Pulse Resp BP BP Pulse Ox 07/22/20 16:00 36.2 C L 78 20 107/65 94 07/22/20 11:42 79 120/66 07/22/20 11:41 75 107/66 07/22/20 11:40 71 87/51 L 96 07/22/20 11:16 36.8 C 70 16 101/60 94 07/22/20 07:22 67 07/22/20 06:40 36.3 C L 68 16 107/51 L 95 Laboratory Results Laboratory Results - last 24 hr 07/22/20 07/22/20 07:17 07:17 WBC 6.25 RBC 2.97 L Hgb 8.3 L Hct 25.2 L MCV 84.8 MCH 27.9 MCHC 32.9 RDW Std Deviation 59.9 H RDW Coeff of Carlos A 20.1 H Plt Count 209 MPV 8.1 Immature Gran % (Auto) 0.3 Neut % (Auto) 75.6 Lymph % (Auto) 9.1 [place] % (Auto) 13.0 Eos % (Auto) 1.8 Baso % (Auto) 0.2 Neut # (Auto) 4.73 Lymph # (Auto) 0.57 L [place] # (Auto) 0.81 H Eos # (Auto) 0.11 Baso # (Auto) 0.01 Immature Gran # (Auto) 0.02 Anisocytosis Present Sodium 137 Potassium 3.2 L D Chloride 106 Carbon Dioxide 24 Anion Gap 7.0 BUN 22 H Creatinine 1.31 Est Cr Clr Drug Dosing 41.3 Est GFR ( Amer) 55.6 Est GFR (Non-Af Amer) 47.9 BUN/Creatinine Ratio 16.5 Glucose 100 H Calcium 8.4 L
[2020-07-22] MEDS: FERROUS SULFATE 325 MG TAB PO SCH (21:15)
[2020-07-23 07:22] LABS: Basophils # (auto) 0.01 K/uL (0-0.2); Basophils % (auto) 0.1 %; Eosinophils # (auto) 0.11 K/uL (0-0.5); Eosinophils % (auto) 1.4 %; Hematocrit (blood only) 27.6 % (42-52); Hemoglobin 9.2 g/dL (14.0-18.0); Immature Granulocytes # (auto) 0.07 K/uL (0.00-0.02); Immature Granulocytes % (auto) 0.9 %; Lymphocytes # (auto) 0.67 K/uL (1.2-3.4); Lymphocytes % (auto) 8.8 %; Mean Corpuscular Hemoglobin 28.3 pg (25-34); Mean Corpuscular Hgb Conc 33.3 g/dL (32-36); Mean Corpuscular Volume 84.9 fL (80-100); Mean Platelet Volume 8.3 fL (7.4-10.4); Monocytes # (auto) 1.15 K/uL (0.11-0.59); Neutrophils # (auto) 5.64 K/uL (1.4-6.5); Neutrophils % (auto) 73.8 %; Platelet Count 225 K/uL (130-400); RDW Coefficient of Variation 20.1 % (11.5-14.5); RDW Standard Deviation 60.7 fL (36.4-46.3); Red Blood Count 3.25 M/uL (4.7-6.1); White Blood Count 7.65 K/uL (4.8-10.8)
[2020-07-23] MEDS: CLOPIDOGREL BISULFATE 75 MG TAB PO SCH (08:00)
[2020-07-23] MEDS: FERROUS SULFATE 325 MG TAB PO SCH ×2 (08:00→17:36)
[2020-07-23] MEDS: ATORVASTATIN 40 MG TAB PO SCH (08:00)
[2020-07-23] MEDS: PANTOprazole 40 MG TAB PO SCH ×2 (08:01→21:31)
[2020-07-23] MEDS: MAGNESIUM OXIDE 400 MG TAB PO SCH (08:01)
[2020-07-23] MEDS: FOLIC ACID 1 MG TAB PO SCH (08:01)
[2020-07-23] MEDS: METOPROLOL SUCC 25MG EXT REL TAB PO SCH (08:01)
[2020-07-23] MEDS: SUCRALFATE 1 GM/10 ML UDC PO SCH ×4 (08:02→21:31)
[2020-07-23 08:07] LABS: BUN Creatinine Ratio 15.4 (10-20); Calcium 8.2 mg/dl (8.5-10.1); Creatinine Clr Calc Pharmacy 49.3 ml/min; Est GFR (African American) 70.2; Est GFR (Non-African American) 60.5; Potassium 3.7 mmol/L (3.5-5.1)
[2020-07-23 08:17] LABS: Anisocytosis Present
[2020-07-23] MEDS ORDERED: SPIRONOLACTONE 12.5 MG TAB PO SCH (09:00)
[2020-07-23] MEDS ORDERED: FUROSEMIDE 20 MG TAB PO SCH (09:00)
[2020-07-23] MEDS: POTASSIUM CHLORIDE CRTAB 20 MEQ TABCR PO SCH (09:28)
[2020-07-23] MEDS: POLYETHYLENE (MIRALAX) 17 GM PACK PO SCH (15:13)
--- NOTE | 2020-07-23 15:38 | Hospitalist Progress Note ---
Date of Service July 23, 2020 Assessment & Plan (1) GI bleeding: Melena, likely upper GI source with presence of melena and persistent melanotic bowel movements for the last 24 hours. Hg 10.2 to 8.5, stable at ~8 S/P EGD: (+) Duodenal ulcers, Gastritis Protonix drip changed to PO per , patient takes ASA and Plavix at home discussed with GI and Neuro restarted Plavix only, dual antiplatelet not recommended at this time per Neurologist Dr. Santos no signs of bleeding, Hg stable now Metoprolol daily and Lasix, Aldactone resumed- q2d (2) Syncope and collapse: One episode of syncope and collapse likely related to orthostatic hypotens ion related to GI bleeding. CT head: no acute process mental status at baseline per may need to reduce diuretics to every other day to prevent hypotension (3) Abdominal pain: per admitting service notes: Has a h/o chronic abdominal pain from known metastatic disease General surgery consulted, unlikely secondary to Hernia likely from underlying Gastritis vs PUD management per above resolved (4) Colitis: CT scan reveals evidence of possible colitis in the rectosigmoid region Etiology includes but not limited to ischemic, radiation colitis, infectious colitis -- check stool for C diff -- placed on Zosyn IV x 3 days--> change to Augmentin -- diarrhea resolved (5) Anemia associated with acute blood loss: Multifactorial cause of anemia including metastatic cancer and other longstanding comorbidities. -- monitor closely anemia panel: low iron, folate ordered IV iron oral FeSO4 and folic acid PO (6) CKD (chronic kidney disease), stage III: baseline (7) Prostate cancer: known h/o prostate cancer diagnosed since 1999 per records with widespread metastatic disease. Per Oncology. (8) Metastatic cancer: (9) DVT prophylaxis: Chemoprophylaxis contraindicated in acute bleed, SCDs ordered DNR/DNI as discussed with on admission Disposition: PT/OT evaluation patient's would like patient to return home with home health services plan of care discussed with patient and his in detail and at length all questions answered they are understanding, agreeable, comfortable with plan of care Admission and Anticipated Discharge Date Admission Date: July 19, 2020 Subjective ff up for upper GI bleed, etc seen resting in bed, comfortable states he feels "so-so" today no abdominal pain, nausea tolerating diet well, but appetite poor drinks Boost chocolate no BM yet since yesterday no chest pain, dyspnea, palpitations no other symptoms Review of Systems Review of Systems: All systems reviewed & are unremarkable except as noted in Subjective Physical Exam Physical Exam: General- oriented x 2, not in distress, speaks in sentences with no effort or accessory muscle use Eyes- anicteric Neck- no JVD Lungs- clear BS BL no rales no wheezing Heart- normal rate, regular rhythm; no murmurs Abdomen- normal bowel sounds, nondistended, soft, nontender Extremities- mild pretibial edema- improved, no calf tenderness Neuro- alert, oriented x 2; no gross focal neurologic deficits Skin- warm & dry Results & Data Results & Data ([facility]) Vital Signs (Past 12 Hours) Vital Signs Temp Pulse Pulse Resp BP Pulse Ox 07/23/20 15:08 36.3 C L 79 16 100/54 L 95 07/23/20 11:11 36.2 C L 72 18 116/72 94 07/23/20 07:21 75 07/23/20 07:13 36.4 C L 73 18 115/63 97 Laboratory Results Laboratory Results - last 24 hr 07/23/20 07/23/20 07:04 07:04 WBC 7.65 RBC 3.25 L Hgb 9.2 L Hct 27.6 L MCV 84.9 MCH 28.3 MCHC 33.3 RDW Std Deviation 60.7 H RDW Coeff of Carlos A 20.1 H Plt Count 225 MPV 8.3 Immature Gran % (Auto) 0.9 Neut % (Auto) 73.8 Lymph % (Auto) 8.8 [place] % (Auto) 15.0 Eos % (Auto) 1.4 Baso % (Auto) 0.1 Neut # (Auto) 5.64 Lymph # (Auto) 0.67 L [place] # (Auto) 1.15 H Eos # (Auto) 0.11 Baso # (Auto) 0.01 Immature Gran # (Auto) 0.07 H Anisocytosis Present Sodium 137 Potassium 3.7 D Chloride 108 H Carbon Dioxide 23 Anion Gap 6.0 BUN 17 Creatinine 1.08 Est Cr Clr Drug Dosing 49.3 Est GFR ( Amer) 70.2 Est GFR (Non-Af Amer) 60.5 BUN/Creatinine Ratio 15.4 Glucose 104 H Calcium 8.2 L
[2020-07-23] MEDS: AMOXICILLIN/CLAVULANATE 875 MG TAB PO SCH (17:35)
[2020-07-23] MEDS: ADVANCED PROBIOTIC 1250 MG CAPSULE PO SCH (17:36)
[2020-07-24 06:36] LABS: Basophils # (auto) 0.01 K/uL (0-0.2); Basophils % (auto) 0.1 %; Eosinophils # (auto) 0.13 K/uL (0-0.5); Eosinophils % (auto) 1.8 %; Hemoglobin 8.9 g/dL (14.0-18.0); Immature Granulocytes # (auto) 0.09 K/uL (0.00-0.02); Immature Granulocytes % (auto) 1.3 %; Lymphocytes % (auto) 11.3 %; Mean Corpuscular Hemoglobin 28.1 pg (25-34); Mean Corpuscular Volume 85.2 fL (80-100); Mean Platelet Volume 8.3 fL (7.4-10.4); Monocytes # (auto) 1.08 K/uL (0.11-0.59); Monocytes % (auto) 15.3 %; Neutrophils # (auto) 4.95 K/uL (1.4-6.5); Neutrophils % (auto) 70.2 %; Platelet Count 269 K/uL (130-400); RDW Coefficient of Variation 20.3 % (11.5-14.5); RDW Standard Deviation 62.3 fL (36.4-46.3); Red Blood Count 3.17 M/uL (4.7-6.1); White Blood Count 7.06 K/uL (4.8-10.8)
[2020-07-24 07:04] LABS: Anisocytosis Present
[2020-07-24 07:14] LABS: BUN Creatinine Ratio 16.9 (10-20); Calcium 8.6 mg/dl (8.5-10.1); Creatinine Clr Calc Pharmacy 63.3 ml/min; Est GFR (Non-African American) 77.6; Potassium 4.4 mmol/L (3.5-5.1)
[2020-07-24] MEDS: ADVANCED PROBIOTIC 1250 MG CAPSULE PO SCH (09:12)
[2020-07-24] MEDS: PANTOprazole 40 MG TAB PO SCH ×2 (09:12→20:22)
[2020-07-24] MEDS: AMOXICILLIN/CLAVULANATE 875 MG TAB PO SCH ×2 (09:12→15:58)
[2020-07-24] MEDS: CLOPIDOGREL BISULFATE 75 MG TAB PO SCH (09:13)
[2020-07-24] MEDS: POTASSIUM CHLORIDE CRTAB 20 MEQ TABCR PO SCH (09:13)
[2020-07-24] MEDS: MAGNESIUM OXIDE 400 MG TAB PO SCH (09:14)
[2020-07-24] MEDS: METOPROLOL SUCC 25MG EXT REL TAB PO SCH (09:14)
[2020-07-24] MEDS: ATORVASTATIN 40 MG TAB PO SCH (09:14)
[2020-07-24] MEDS: FERROUS SULFATE 325 MG TAB PO SCH ×2 (09:14→15:59)
[2020-07-24] MEDS: FOLIC ACID 1 MG TAB PO SCH (09:15)
[2020-07-24] MEDS: POLYETHYLENE (MIRALAX) 17 GM PACK PO SCH (09:15)
[2020-07-24] MEDS: SUCRALFATE 1 GM/10 ML UDC PO SCH ×4 (09:16→20:22)
[2020-07-24] MEDS ORDERED: LACTULOSE SYRUP 10 GM/15 ML BTL 960 ML PO PRN (14:38)
--- NOTE | 2020-07-24 14:53 | XRay Report ---
XR chest 1V portable CLINICAL HISTORY: COUGH, R/O PNEUMONIA COMPARISON STUDY: No previous studies for comparison. 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 There are cholecystectomy clips. No pneumothorax is p resent. There is no definite pleural effusion. Minimal left basilar opacity favors atelectasis. Lungs are mildly diminished. Hazy densities projecting over the upper hemithoraces are due to skeletal met astases shown on chest CT of June 23, 2020. Cardiomediastinal silhouette is stable. No evidence fo r pulmonary edema. IMPRESSION: 1. Mild left basilar opacity. Atelectasis is favored. 2. Hazy densities projecting over the upper hemithoraces due to skeletal metastases shown on chest CT of June 23, 2020. ACT 112: Negative or not required by law. Electronically signed by: Ezio Crane M.D. 07/24/2020 2:52 PM
--- NOTE | 2020-07-24 15:53 | Hospitalist Progress Note ---
Date of Service July 24, 2020 Assessment & Plan (1) GI bleeding: Melena, likely upper GI source with presence of melena and persistent melanotic bowel movements for the last 24 hours. Hg 10.2 to 8.5, stable at ~8 S/P EGD: (+) Duodenal ulcers, Gastritis Protonix drip changed to PO per , patient takes ASA and Plavix at home discussed with GI and Neuro restarted Plavix only, dual antiplatelet not recommended at this time per Neurologist Dr. Santos no signs of bleeding, Hg stable now Metoprolol daily and Lasix, Aldactone resumed (2) Syncope and collapse: One episode of syncope and collapse likely related to orthostatic hypotension related to GI bleeding. CT head: no acute process mental status at baseline per may need to reduce diuretics to every other day to prevent hypotension (3) Abdominal pain: per admitting service notes: Has a h/o chronic abdominal pain from known metastatic disease General surgery consulted, unlikely secondary to Hernia likely from underlying Gastritis vs PUD management per above resolved (4) Colitis: CT scan reveals evidence of possible colitis in the rectosigmoid region Etiology includes but not limited to ischemic, radiation colitis, infectious colitis -- check stool for C diff -- placed on Zosyn IV x 3 days--> change to Augmentin -- diarrhea resolved (5) Anemia associated with acute blood loss: Multifactorial cause of anemia including metastatic cancer and other longstanding comorbidities. -- monitor closely anemia panel: low iron, folate ordered IV iron oral FeSO4 and folic acid PO (6) CKD (chronic kidney disease), stage III: baseline (7) Prostate cancer: known h/o prostate cancer diagnosed since 1999 per records with widespread metastatic disease. Per Oncology. check PSA (8) Metastatic cancer: (9) DVT prophylaxis: Chemoprophylaxis contraindicated in acute bleed, SCDs ordered DNR/DNI as discussed with on admission Disposition: PT/OT evaluation patient's would like patient to return home with home health services plan of care discussed with patient and his in detail and at length all questions answered they are understanding, agreeable, comfortable with plan of care Admission and Anticipated Discharge Date Admission Date: July 19, 2020 Subjective ff up for upper GI bleed, etc seen resting in bed comfortable states he feels somewhat better today has occasional productive cough, no dyspnea, chest pain no abdominal pain, nausea has poor appetite no BMs yet, (+) gas no other symptoms Review of Systems Review of Systems: All systems reviewed & are unremarkable except as noted in Subjective Physical Exam Physical Exam: General- oriented x 2, not in distress, speaks in sentences with no effort or accessory muscle use Eyes- anicteric Neck- no JVD Lungs- clear breath sounds bilaterally no crackles no wheezing Heart- normal rate, regular rhythm; no murmurs Abdomen- normal bowel sounds, nondistended, soft, nontender Extremities- mild pretibial edema, no calf tenderness Neuro- alert, oriented x 2; no gross focal neurologic deficits Skin- warm & dry Results & Data Results & Data ([facility]) Vital Signs (Past 12 Hours) Vital Signs Temp Pulse Pulse Resp BP BP Pulse Ox 07/24/20 14:49 78 07/24/20 11:18 36.3 C L 76 18 136/73 96 07/24/20 07:43 36.6 C 77 18 119/74 95 07/24/20 07:08 88 07/24/20 03:57 36.6 C 71 21 108/63 95 all noted and reviewed including below Laboratory Results Laboratory Results - last 24 hr 07/24/20 07/24/20 07/24/20 06:02 06:02 15:31 WBC 7.06 RBC 3.17 L Hgb 8.9 L Hct 27.0 L MCV 85.2 MCH 28.1 MCHC 33.0 RDW Std Deviation 62.3 H RDW Coeff of Carlos A 20.3 H Plt Count 269 MPV 8.3 Immature Gran % (Auto) 1.3 Neut % (Auto) 70.2 Lymph % (Auto) 11.3 [place] % (Auto) 15.3 Eos % (Auto) 1.8 Baso % (Auto) 0.1 Neut # (Auto) 4.95 Lymph # (Auto) 0.80 L [place] # (Auto) 1.08 H Eos # (Auto) 0.13 Baso # (Auto) 0.01 Immature Gran # (Auto) 0.09 H Anisocytosis Present Sodium 137 Potassium 4.4 D Chloride 108 H Carbon Dioxide 25 Anion Gap 4.0 BUN 14 Creatinine 0.84 Est Cr Clr Drug Dosing 63.3 Est GFR ( Amer) 90.0 Est GFR (Non-Af Amer) 77.6 BUN/Creatinine Ratio 16.9 Glucose 102 H Calcium 8.6 Prostate Specific Ag 5300.000 H Specimen Hemolysis
[2020-07-24] MEDS: DOCUSATE SODIUM/SENNA 50/8.6MG TAB PO SCH (15:57)
[2020-07-24] MEDS: SPIRONOLACTONE 12.5 MG TAB PO SCH (15:57)
[2020-07-24] MEDS: FUROSEMIDE 20 MG TAB PO SCH (15:57)
[2020-07-25 08:51] LABS: Basophils # (auto) 0.02 K/uL (0-0.2); Basophils % (auto) 0.3 %; Eosinophils # (auto) 0.19 K/uL (0-0.5); Eosinophils % (auto) 2.9 %; Hematocrit (blood only) 26.8 % (42-52); Hemoglobin 8.8 g/dL (14.0-18.0); Immature Granulocytes % (auto) 1.5 %; Lymphocytes % (auto) 12.3 %; Mean Corpuscular Hemoglobin 27.8 pg (25-34); Mean Corpuscular Hgb Conc 32.8 g/dL (32-36); Mean Corpuscular Volume 84.8 fL (80-100); Mean Platelet Volume 8.3 fL (7.4-10.4); Monocytes # (auto) 0.79 K/uL (0.11-0.59); Monocytes % (auto) 12.1 %; Neutrophils # (auto) 4.63 K/uL (1.4-6.5); Neutrophils % (auto) 70.9 %; Platelet Count 284 K/uL (130-400); RDW Coefficient of Variation 20.4 % (11.5-14.5); Red Blood Count 3.16 M/uL (4.7-6.1); White Blood Count 6.53 K/uL (4.8-10.8)
[2020-07-25] MEDS: PANTOprazole 40 MG TAB PO SCH ×2 (08:59→20:36)
[2020-07-25] MEDS: FOLIC ACID 1 MG TAB PO SCH (08:59)
[2020-07-25] MEDS: ADVANCED PROBIOTIC 1250 MG CAPSULE PO SCH (08:59)
[2020-07-25] MEDS ORDERED: SPIRONOLACTONE 12.5 MG TAB PO SCH (09:00)
[2020-07-25] MEDS: SPIRONOLACTONE 12.5 MG TAB PO SCH (09:00)
[2020-07-25] MEDS ORDERED: FUROSEMIDE 20 MG TAB PO SCH (09:00)
[2020-07-25] MEDS: CLOPIDOGREL BISULFATE 75 MG TAB PO SCH (09:00)
[2020-07-25] MEDS: ATORVASTATIN 40 MG TAB PO SCH (09:00)
[2020-07-25] MEDS: MAGNESIUM OXIDE 400 MG TAB PO SCH (09:00)
[2020-07-25] MEDS: METOPROLOL SUCC 25MG EXT REL TAB PO SCH (09:01)
[2020-07-25] MEDS: SUCRALFATE 1 GM/10 ML UDC PO SCH ×4 (09:01→20:35)
[2020-07-25] MEDS: FUROSEMIDE 20 MG TAB PO SCH (09:01)
[2020-07-25] MEDS: POTASSIUM CHLORIDE CRTAB 20 MEQ TABCR PO SCH (09:01)
[2020-07-25] MEDS: FERROUS SULFATE 325 MG TAB PO SCH ×2 (09:02→17:53)
[2020-07-25] MEDS: POLYETHYLENE (MIRALAX) 17 GM PACK PO SCH (09:02)
[2020-07-25] MEDS: AMOXICILLIN/CLAVULANATE 875 MG TAB PO SCH ×2 (09:02→17:52)
[2020-07-25] MEDS: DOCUSATE SODIUM/SENNA 50/8.6MG TAB PO SCH (09:03)
[2020-07-25 09:24] LABS: Calcium 9.2 mg/dl (8.5-10.1); Creatinine Clr Calc Pharmacy 57.3 ml/min; Est GFR (African American) 84.1; Est GFR (Non-African American) 72.5; Potassium 4.2 mmol/L (3.5-5.1)
[2020-07-25] MEDS ORDERED: OXYBUTYNIN CHLORIDE 5 MG TAB PO PRN (09:48)
[2020-07-25 10:18] LABS: Anisocytosis Present
[2020-07-25] MEDS ORDERED: LACTULOSE SYRUP 10 GM/15 ML BTL 960 ML PO ONE (17:00)
--- NOTE | 2020-07-25 19:52 | Hospitalist Progress Note ---
Date of Service delayed entry date of service noted below July 25, 2020 Assessment & Plan (1) GI bleeding: Melena, likely upper GI source with presence of melena and persistent melanotic bowel movements for the last 24 hours. Hg 10.2 to 8.5, stable at ~8 S/P EGD: (+) Duodenal ulcers, Gastritis Protonix drip changed to PO per , patient takes ASA and Plavix at home discussed with GI and Neuro restarted Plavix only, dual antiplatelet not recommended at this time per Neurologist Dr. Santos no signs of bleeding, Hg stable now (2) Syncope and collapse: One episode of syncope and collapse likely related to orthostatic hypotension related to GI bleeding. CT head: no acute process mental status at baseline per Lasix, Aldactone changed to q2d to prevent hypotension and dehydration (3) Abdominal pain: per admitting service notes: Has a h/o chronic abdominal pain from known metastatic disease General surgery consulted, unlikely secondary to Hernia likely from underlying Gastritis vs PUD management per above resolved (4) Colitis: CT scan reveals evidence of possible colitis in the rectosigmoid region Etiology includes but not limited to ischemic, radiation colitis, infectious colitis -- placed on Zosyn IV x 3 days--> changed to Augmentin= completed 7 day course -- diarrhea resolved (5) Anemia associated with acute blood loss: Multifactorial cause of anemia including metastatic cancer and other longstanding comorbidities. -- monitor closely anemia panel: low iron, folate ordered IV iron oral FeSO4 and folic acid PO if still tolerated (6) CKD (chronic kidney disease), stage III: baseline (7) Prostate cancer: known h/o prostate cancer diagnosed since 1999 per records with widespread metastatic disease. Per Oncology. check PSA (8) Metastatic cancer: (9) DVT prophylaxis: Chemoprophylaxis contraindicated in acute bleed, SCDs ordered DNR/DNI as discussed with on admission Disposition: patient's would like patient to return home with home account liaison hospice consulted plan of care discussed with patient and his in detail and at length all questions answered they are understanding, agreeable, comfortable with plan of care Admission and Anticipated Discharge Date Admission Date: July 19, 2020 Subjective ff up for upper GI bleed, etc seen resting in bed, comfortable in good spirits no abdominal pain, nausea no dyspnea, chest pain appetite is poor no BM yet states he would like to go home today patient's Phuong at bedside, agreeable for discharge as well Review of Systems Review of Systems: All systems reviewed & are unremarkable except as noted in Subjective Physical Exam Physical Exam: General- oriented x 2, not in distress, speaks in sentences with no effort or accessory muscle use weak Eyes- anicteric Neck- no JVD Lungs- clear breath sounds bilaterally Heart- normal rate, regular rhythm; no murmurs Abdomen- normal bowel sounds, nondistended, soft, nontender Extremities- trace pretibial edema, no calf tenderness Neuro- alert, oriented x 2; no gross focal neurologic deficits Skin- warm & dry Results & Data Results & Data ([facility]) Vital Signs (Past 12 Hours) Vital Signs Temp Pulse Resp BP Pulse Ox 07/25/20 19:10 36.5 C 88 18 111/66 97 07/25/20 15:08 36.4 C L 79 18 121/71 96 07/25/20 11:39 36.3 C L 84 18 125/81 100 07/25/20 07:56 36.2 C L 85 18 123/70 91 all noted and reviewed including below
[2020-07-25] MEDS ORDERED: hydrOXYzine HCl 10 MG TAB PO SCH (21:00)
--- NOTE | 2020-07-26 00:21 | Communication Note ---
Date of Service: July 26, 2020 Made aware by RN of positive orthostatic vitals. Patient asymptomatic as per RN. Hold home diuretics for now. Will relay to AM provider.
[2020-07-26 08:22] LABS: BUN Creatinine Ratio 12.4 (10-20); Calcium 8.9 mg/dl (8.5-10.1); Creatinine Clr Calc Pharmacy 55.8 ml/min; Est GFR (Non-African American) 71.6; Potassium 4.6 mmol/L (3.5-5.1)
[2020-07-26] MEDS: ATORVASTATIN 40 MG TAB PO SCH (09:18)
[2020-07-26] MEDS: PANTOprazole 40 MG TAB PO SCH (09:18)
[2020-07-26] MEDS: CLOPIDOGREL BISULFATE 75 MG TAB PO SCH (09:18)
[2020-07-26] MEDS: SUCRALFATE 1 GM/10 ML UDC PO SCH ×2 (09:19→13:06)
[2020-07-26] MEDS: POLYETHYLENE (MIRALAX) 17 GM PACK PO SCH (09:19)
[2020-07-26] MEDS: FOLIC ACID 1 MG TAB PO SCH (09:19)
[2020-07-26] MEDS: MAGNESIUM OXIDE 400 MG TAB PO SCH (09:19)
[2020-07-26] MEDS: ADVANCED PROBIOTIC 1250 MG CAPSULE PO SCH (09:19)
[2020-07-26] MEDS: POTASSIUM CHLORIDE CRTAB 20 MEQ TABCR PO SCH (09:20)
[2020-07-26] MEDS: METOPROLOL SUCC 25MG EXT REL TAB PO SCH (09:20)
[2020-07-26] MEDS: DOCUSATE SODIUM/SENNA 50/8.6MG TAB PO SCH (09:20)
[2020-07-26] MEDS: AMOXICILLIN/CLAVULANATE 875 MG TAB PO SCH (09:21)
[2020-07-26] MEDS: FERROUS SULFATE 325 MG TAB PO SCH (09:21)
--- NOTE | 2020-07-27 15:02 | Discharge Summary ---
Date of Service July 27, 2020 Admission HPI Per Admitting Provider 89 yo M presented to the ER via ambulance reporting some GI bleeding that began last night. He reports having a syncopal episode while trying to ambulate to the bed. His reports that he has had significant weakness with ambulating for the past month and requires significant assistance because of weakness in his legs. As he was trying to stand up and walk to the bed his legs gave out and he was seen to have a temporary loss of consciousness. At this time there was significant black tarry stool coming from his rectum. This melanotic stool continued overnight. The patient denies any fevers chills or any pain or shortness of breath. Review of systems is otherwise negative except for abdominal pain. Chronic abdominal pain is noted 2/2 metastatic prostate cancer and the patient is unable to accurately describe his current pain. His reports a concern about his prior hernia site as she has noted periumbilical pain that is new. This was confirmed on my exam that he has superficial pain just superior to his scar tissue, although current clinical information is not suggestive of bowel entrapment. There was no reported head injury when he fell and he is taking ASA 162mg. Although notes report he was taking Plavix, he only takes aspirin at home with last dose yesterday, 07/18. He denies lightheadedness when sitting still and has not changed position much at all today to note any orthostasis. He continues to have melanotic bowel movements in the ER. He has dementia and history was mainly gained from the who was at bedside, who is his instant print operator. Although the patient knows where he is, he cannot recall events correctly in the last 24 hours and is not sure of the date. He has a history of sick sinus syndrome s/p dual chamber pacemaker implantation in September [address] Gallego with RV pacing lead malfunction requiring lead revision by Dr. Rogers later that month. 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 He has metastatic carcinoma of the prostate diagnosed in 1999, s/p bilateral orchiectomy in 2007, radiation treatment in Apr 2011, followed by treatment with Xtandi. He has a h/o TIA July 2018. Admission Exam Per Admitting Provider CONSTITUTIONAL: WNWD, vitals as above, generally well-appearing EYES: pupils are round and equal bilaterally, normal conjunctivae, no scleral icterus ENT: external ear and nose normal, oropharynx clear, MMM RESPIRATORY: clear to auscultation bilaterally, no crackles, rales or wheezes, normal respiratory effort CARDIOVASCULAR: regular rate and rhythm, S1 and 2 heard without murmurs, gallops or rubs, no JVD, no peripheral edema GASTROINTESTINAL: soft, RUQ TTP, suprapubic TTP, also with some point tenderness superficially around his periumbilical scar tissue and just superior to this area. Nondistended. MUSCULOSKELETAL: generalized weakness, head is normocephalic and atraumatic SKIN: warm and dry NEUROLOGIC: No facial palsy, no dysarthria. CN 2-12 grossly intact, normal cognition, no gross focal deficits. PSYCHIATRIC: alert cooperative and oriented to person and place. Principal Diagnosis Upper GI bleed, Duodenal Ulcers, Gastritis Anemia Discharge Exam General- oriented x 2, not in distress, speaks in sentences with no effort or accessory muscle use weak Eyes- anicteric Neck- no JVD Lungs- clear breath sounds bilaterally Heart- normal rate, regular rhythm; no murmurs Abdomen- normal bowel sounds, nondistended, soft, nontender Extremities- trace pretibial edema, no calf tenderness Neuro- alert, oriented x 2; no gross focal neurologic deficits Skin- warm & dry Discharge Data Allergies Allergy/AdvReac Type Severity Reaction Status Date / Time No Known Allergies Allergy Unknown Verified 07/19/20 13:37 Consultations 07/19/20 15:45 ED Decision to Admit Stat 07/19/20 16:49 Consult General Surgery Routine 07/19/20 17:32 Consult Case Management - Discharge Planning Routine Consult Gastroenterology Routine Procedures Performed Operation Date: 07/21/20 16:45 Actual Procedures p EGD Biopsy Cytology - Elysia Ayoub DO Ordered Studies 07/19/20 11:51 CT abd pelvis IV con only Stat FINDINGS: Lower chest: There are mild basilar atelectatic changes present. There is no pericardial effusion. There are coronary artery calcifications. There is a central venous pacemaker. There is redemonstration of right middle lobe perifissural nodules Liver: There are several hypodense hepatic lesions, the largest of which is located within the right lobe beneath the hepatic dome measuring 11 mm. Metastatic disease cannot be excluded. Gallbladder: Surgically absent Spleen: Normal in size and attenuation. Pancreas: Fatty atrophy Adrenal glands: There is a 47 mm right adrenal mass. There is an 11.2 cm left adrenal mass Kidneys: In addition to small bilateral renal cysts, there are 2 indeterminate lower pole left renal lesions measuring 13 mm and 12 mm respectively. Bowel: There are no transition zones to indicate bowel obstruction. There is moderate rectosigmoid wall thickening with infiltration of the pericolonic fat. The findings are indicative of a colitis. Peritoneum: There is no intraperitoneal free air or abdominal ascites. Vasculature: There are aortoiliac atheromatous changes. There is mild ectasia of the infrarenal abdominal aorta which measures 27 mm. 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 Adenopathy: None. Pelvic viscera: There is bladder wall thickening. There is an indwelling Pack catheter. There is a large destructive sacral mass with soft tissue component measuring 85 x 70 x 36 mm. Skeletal structures: There is evidence for a multifocal skeletal metastasis. There is bilateral gynecomastia. IMPRESSION: 1. Multifocal blastic osseous metastasis 2. Large destructive sacral mass with soft tissue component measuring 85 x 70 x 36 mm. 3. Bilateral adrenal masses consistent with metastatic disease 4. Small hypodense hepatic lesions which are viewed as suspicious for metastatic disease 5. Prostatomegaly and bladder wall thickening 6. Interval development of moderate rectosigmoid wall thickening with infiltration of the pericolonic fat. The findings are indicative of a colitis. ACT 112: Negative or not required by law. 07/19/20 12:00 CT head/brain wo con Stat FINDINGS: Brain parenchyma: There are age-related involutional changes noting mild to moderate subcortical and periventricular microangiopathic change. There is no hemorrhage, mass effect, or evidence of acute territorial ischemia by CT criteria. Bhatia-white matter differentiation is preserved. No extra-axial fluid collection is seen. Ventricles, sulci, cisterns: Prominent secondary to involutional change. Intracranial vasculature: There is atherosclerotic calcification of the cavernous carotid and vertebral arteries. Calvarium: The skeletal structures are osteopenic. There is no depressed calvarial fracture. Sinuses and mastoids: The visualized paranasal sinuses are clear. The mastoid air cells are well pneumatized. Orbits: The bony orbits are grossly intact. IMPRESSION: There is no hemorrhage, mass effect, or evidence of acute territorial ischemia by CT criteria. Hospital Course (1) GI bleeding: Melena, likely upper GI source with presence of melena and persistent melanotic bowel movements for the last 24 hours. Hg 10.2 to 8.5, stable at ~8 S/P EGD: (+) Duodenal ulcers, Gastritis Protonix drip changed to PO per , patient takes ASA and Plavix at home discussed with GI and Neuro restarted Plavix only, dual antiplatelet not recommended at this time per Neurologist Dr. Santos no signs of bleeding, Hg stable now (2) Syncope and collapse: One episode of syncope and collapse likely related to orthostatic hypotension related to GI bleeding. CT head: no acute process mental status at baseline per Lasix, Aldactone changed to q2d to prevent hypotension and dehydration (3) Abdominal pain: per admitting service notes: Has a h/o chronic abdominal pain from known metastatic disease General surgery consulted, unlikely secondary to Hernia likely from underlying Gastritis vs PUD management per above resolved (4) Colitis: CT scan reveals evidence of possible colitis in the rectosigmoid region Etiology includes but not limited to ischemic, radiation colitis, infectious colitis -- placed on Zosyn IV x 3 days--> changed to Augmentin= completed 7 day course -- diarrhea resolved (5) Anemia associated with acute blood loss: Multifactorial cause of anemia including metastatic cancer and other longstanding comorbidities. -- monitor closely anemia panel: low iron, folate ordered IV iron oral FeSO4 and folic acid PO if still tolerated (6) CKD (chronic kidney disease), stage III: baseline (7) Prostate cancer: known h/o prostate cancer diagnosed since 1999 per records with widespread metastatic disease. Per Oncology. check PSA (8) Metastatic cancer: (9) DVT prophylaxis: Chemoprophylaxis contraindicated in acute bleed, SCDs ordered DNR/DNI as discussed with on admission Disposition: patient's would like patient to return home with home sr. manager marketing consulted plan of care discussed with patient and his in detail and at length all questions answered they are understanding, agreeable, comfortable with plan of care Total Time Total Time Spent Total Time Spent (In Minutes): > 30 minutes Discharge Plan Discharge Items Patient Disposition: Home - Home Health Services Reason For Visit: ACUTE GI BLEEDING Discharge Diagnosis: Upper gastrointestinal bleeding secondary to duodenal ulcers Gastritis Anemia secondary to GI bleeding Activity: Resume your previous activity Non-emergency contact: Primary Care Provider Call non-emergency contact if: you have any medication questions, your symptoms worsen, your pain is not controlled, your pain is worsening, your pain is unusual for you, your pain is concerning for you and you have a fever Follow-up/Referrals: Ger Dong MD [Primary Care Provider] - 08/01/20 11:00 am (Date & Time 08/01/2020 11:00 AM Provider Ger Dong MD [facility] ) Diet: Heart Healthy Diet Comment: Soft, easy to chew Addtl Attending Provider Instructions: Please refer to your new medication list and follow instructions carefully. New medications medications include: Protonix, sucralfate- antacids to heal stomach ulcers Hydroxyzine-as needed for anxiety [id number] constipation Change Lasix and spironolactone to every other day. Give Lasix and spironolactone daily if you notice shortness of breath, leg or upper arm swelling. Home hospice services to be arranged by case management. Take care. It was my pleasure to take care of you. Pending Studies at Discharge: No Stand-Alone Forms: My [facility], Smoking Cessation Medications and DC Order Prescriptions: New clopidogrel 75 mg Tablet 75 mg PO QAM Qty: 30 RF: 0 hydroxyzine HCl 10 mg Tablet 10 mg PO BID PRN (Reason: anxiety) Qty: 30 RF: 0 pantoprazole 40 mg Tablet,Delayed Release (Dr/Ec) 40 mg PO BID Qty: 60 RF: 1 sennosides-docusate sodium [Senokot-S] 8.6-50 mg Tablet 1 tab PO QAM Qty: 30 RF: 0 sucralfate 100 mg/mL Suspension 1 g PO QID Qty: 1200 RF: 1 Continued atorvastatin 40 mg tablet 40 mg PO QAM RF: 0 metoprolol succinate 25 mg tablet extended release 24 hr 12.5 mg PO QAM RF: 0 tramadol 50 mg tablet 50 mg PO Q8H PRN (Reason: pain) Qty: 20 RF: 0 oxycodone 5 mg tablet 5 mg PO Q8H PRN (Reason: pain) Qty: 12 RF: 0 polyethylene glycol 3350 [Miralax] 17 gram Powder In Packet 17 g PO DAILY PRN (Reason: Constipation) RF: 0 potassium chloride 10 mEq Tablet Extended Release 0 meq PO QAM RF: 0 cholecalciferol (vitamin D3) [Vitamin D3] 5,000 unit Tablet 5,000 unit PO QAM RF: 0 magnesium oxide 400 mg magnesium Tablet 400 mg PO QAM RF: 0 Changed furosemide 40 mg tablet 20 mg PO Q2D Qty: 0 RF: 0 spironolactone 25 mg Tablet 12.5 mg PO Q2D Qty: 0 RF: 0 Discharge Orders: Discharge Order (Routine); Ordered 07/26/20 Ordered By: Garcia Eric/Other Patient Handouts: Discharge Instructions- Eating a ... Admission Data Admit Date/Time: 07/19/20 19:02 Attending Provider: Garcia Schulte Admit Provider: Luciana Gómez Primary Care Provider: Ger Dong Other Providers: Luciana Gómez ; Jose Acosta ; Elysia Ayoub ; [place] Other Interventions: Discharge Summary Assessment (RN) Last Done: 07/26/20 13:09
== END 2020-07-26 14:43 | disposition hospice, home (50) | DRG 378 ==
LOC: 2W 11:28 → ED 11:28 → 2W 17:00 → SUATTDRO 19:02 → 2W 07-22 16:42